=== PATIENT | female | born 1940 | race Caucasian/White ===

== ENCOUNTER 2016-10-03 09:49 | Inpatient (IN) | payer OTHER, MEDICARE ==
[~2016-10-03] VITALS: Ht 175.3 cm; Wt 73.0 kg
[~2016-10-03 09:49] MED LIST: CLOP75TA PO; FURO20TA PO; GABA300C5 PO; ISOS60TA PO; METO50TA11 PO; OMEP20TA PO; OXYGENTANK NAS.CANULA; RANE1000 PO
[2016-10-21] MEDS: D5-NS + KCL 20 MEQ INJ 1,000 ML IV SCH ×2 (01:00→18:30)
[2016-10-21] MEDS ORDERED: PROPOFOL 200 MG/20 ML AMP IV ONE (12:00)
[2016-10-21] MEDS ORDERED: ePHEDrine/NS 25 MG/5 ML SYR IV ONE (12:00)
[2016-10-21] MEDS ORDERED: LACTATED RINGER'S 1,000 ML BAG IV ONE (12:00)
[2016-10-21] MEDS ORDERED: ONDANSETRON HCL 4 MG/2 ML VIAL IV PUSH ONE (12:00)
[2016-10-21] MEDS ORDERED: SODIUM CHLORID 0.9% 500 ML IV PRN (13:15)
[2016-10-21] MEDS ORDERED: CHLORHEXIDINE GLUCONATE 2 % 1 PACK (2 CLOTHS) TOPICAL PRN (13:15)
[2016-10-21] MEDS ORDERED: METOPROLOL TARTRATE 25 MG TAB PO PRN (13:15)
[2016-10-21] MEDS ORDERED: LACTATED RINGER'S 1000 ML IV PRN (13:15)
[2016-10-21] MEDS ORDERED: INSULIN HUMAN REGULAR 1,000 UNITS/10 ML VIAL SQ PRN (13:15)
[2016-10-21] MEDS ORDERED: POVIDONE IODINE 5% (ANTISEPSIS KIT) 4 APPLICATIONS EACH NARE PRN (13:15)
[2016-10-21] MEDS ORDERED: ALVIMOPAN 12 MG CAPSULE - On Call PO SCH (13:15)
--- NOTE | 2016-10-21 13:20 | PD.HP.UP ---
H&P Update Note The Pre-Admit History and Physical Examination regarding the above named patient was reviewed (including, but not limited to, vital signs, heart, lungs, co-morbid conditions), and upon re-examination it is noted that: the patient's condition has not significantly changed since the last examination. Saqib Carcamo MD Oct 21, 2016 13:20
[2016-10-21] MEDS ORDERED: DEXT 5%-NACL 0.9% 1000 ML INJ 1,000 ML IV SCH (13:30)
[2016-10-21] MEDS ORDERED: METRONIDAZOLE 500 MG/100 ML ISONTONIC SOLN IV SCH (13:30)
[2016-10-21] MEDS ORDERED: ceFAZolin 1,000 MG/NS 100 ML IV SCH ×2 (13:30)
[2016-10-21 13:38] VITALS: BP 171/84; PULSE 82; RESP 18; TEMP 97.9; O2SAT 98
[2016-10-21] MEDS ORDERED: SODIUM CHLORIDE 0.9% FLUSH 10 ML FLUSH IV FLUSH PRN ×2 (14:00→18:00)
[2016-10-21] MEDS ORDERED: ACETAMINOPHEN 1000 MG/100 ML VIAL IV ONE (14:48)
[2016-10-21] MEDS ORDERED: SUGAMMADEX SODIUM 200 MG/2 ML VIAL IV PUSH ONE ×2 (14:48)
[2016-10-21] MEDS ORDERED: FAMOTIDINE 20 MG/2 ML VIAL ONE (14:48)
[2016-10-21] MEDS ORDERED: POTASSIUM CHLOR 40 MEQ PREMIX 100 ML IV PRN (18:00)
[2016-10-21] MEDS ORDERED: ACETAMINOPHEN 325 MG TAB PO PRN (18:00)
[2016-10-21] MEDS ORDERED: ENALAPRILAT 1.25 MG/ML VIAL IV PRN (18:00)
[2016-10-21] MEDS ORDERED: NALOXONE HCL 0.4 MG/ML AMP IV PRN (18:00)
[2016-10-21] MEDS ORDERED: POTASSIUM CHLOR 20 MEQ PREMIX 100 ML IV PRN (18:00)
[2016-10-21] MEDS ORDERED: Post-op Orders (for Pharmacy) MISC XX ONE (18:00)
[2016-10-21] MEDS ORDERED: ENALAPRILAT 2.5 MG/2 ML VIAL IV PRN (18:00)
[2016-10-21] MEDS ORDERED: ACETAMINOPHEN/HYDROcodone 325 MG/5 MG TAB PO PRN ×2 (18:00)
[2016-10-21] MEDS ORDERED: BENZOCAINE 6 MG/MENTHOL 10 MG LOZENGE BUCCAL PRN (18:00)
--- NOTE | 2016-10-21 18:01 | HHI.PR ---
Immediate Post Op Note Procedure Date: Oct 21, 2016 Pre Op Diagnosis: Hx colostomy Post Op Diagnosis: Same Surgeon: Saqib Carcamo Contact Center Professional(s): Rosalie Procedure: Exploratory lap + seg colectomy, low pelvic anastomosis Findings: adhesions, prev emil-en-y gastric resection small bowel over colon liver nl ut/ovaries absent no vaginal fistula Complications: none Specimen(s) removed: colon, rectum Estimated blood loss: 100cc Anesthesia: General Drains: SELENA IVF Patient to: PACU Patient Condition: Good Saqib Carcamo MD Oct 21, 2016 18:01
[2016-10-21] MEDS ORDERED: *MEPERIDINE 25 MG INJ VIAL PERIprocedural Use ONLY ONE (18:33)
[2016-10-21] MEDS ORDERED: MIDAZOLAM HCL 2 MG/2 ML VIAL ONE (18:38)
[2016-10-21] MEDS ORDERED: fentaNYL CITRATE 250 MCG/5 ML AMP ONE (18:38)
[2016-10-21] MEDS: MORPHINE SULFATE 30 MG/30 ML PCA IV SCH (18:58)
[2016-10-21] MEDS: RANOLAZINE 500 MG EXTENDED RELEASE TAB PO SCH (21:00)
[2016-10-21] MEDS: SODIUM CHLORIDE 0.9% FLUSH 10 ML FLUSH IV FLUSH SCH (21:00)
[2016-10-21] MEDS: METOCLOPRAMIDE HCL 10 MG/2 ML VIAL IVS SCH (21:00)
[2016-10-21] MEDS ORDERED: *morphine SULFATE 8 MG/ML PERIprocedure ONLY ONE (21:10)
[2016-10-21] MEDS: metroNIDAZOLE 500 MG INJ 100 ML IV SCH (21:40)
[2016-10-21 23:00] VITALS: BP 150/89; PULSE 60; PULSE 75; RESP 16; TEMP 98; O2SAT 100
[2016-10-22] VITALS (26 sets, daily range): BP systolic 140–166; BP diastolic 58–75; PULSE 60–86; RESP 16–18; TEMP 97.7–98.9; O2SAT 96–99
[2016-10-22] MEDS: metroNIDAZOLE 500 MG INJ 100 ML IV SCH ×2 (04:44→13:02)
[2016-10-22] MEDS: D5-NS + KCL 20 MEQ INJ 1,000 ML IV SCH ×3 (05:26→20:12)
[2016-10-22] MEDS: PCA - TOTAL MG MORPHINE DELIVERED PER SHIFT SCH ×3 (06:00→22:00)
[2016-10-22 06:35] LABS: AUTOMATED NEUTROPHIL # 6.3 TH/MM3 (1.8-7.7); BASOPHIL % 0.2 % (0.0-2.0); HEMATOCRIT 34.6 % (35.0-46.0); HEMO FLAGS DIFF FINAL; LYMPH % 10.6 % (9.0-44.0); LYMPHOCYTE # 0.8 TH/MM3 (1.0-4.8); MEAN CELL VOLUME 94.6 FL (80.0-100.0); MEAN CORPUSCULAR HEMOGLOBIN 31.1 PG (27.0-34.0); MEAN CORPUSCULAR HGB CONC 32.8 % (32.0-36.0); MONO % 5.2 % (0.0-8.0); PLATELET COUNT 104 TH/MM3 (150-450); RED BLOOD COUNT 3.66 MIL/MM3 (4.00-5.30); RED CELL DISTRIBUTION WIDTH 14.6 % (11.6-17.2); WHITE BLOOD COUNT 7.5 TH/MM3 (4.0-11.0)
[2016-10-22 07:17] LABS: BICARBONATE 25.6 MEQ/L (21.0-32.0); POTASSIUM 4.9 MEQ/L (3.5-5.1)
[2016-10-22] MEDS: PANTOPRAZOLE SODIUM 40 MG VIAL IVP SCH (08:15)
[2016-10-22] MEDS: METOPROLOL SUCCINATE 50 MG EXTENDED RELEASE TAB PO SCH (08:15)
[2016-10-22] MEDS: PANTOPRAZOLE SOD 40 MG DELAYED RELEASE TAB PO SCH (08:15)
[2016-10-22] MEDS: SODIUM CHLORIDE 0.9% FLUSH 10 ML FLUSH IV FLUSH SCH ×2 (08:16→20:12)
[2016-10-22] MEDS: METOCLOPRAMIDE HCL 10 MG/2 ML VIAL IVS SCH ×2 (08:16→20:11)
[2016-10-22] MEDS: RANOLAZINE 500 MG EXTENDED RELEASE TAB PO SCH ×2 (08:44→20:11)
[2016-10-22] MEDS: ONDANSETRON HCL 4 MG/2 ML VIAL IV PRN (08:44)
[2016-10-22] MEDS ORDERED: ALVIMOPAN 12 MG CAPSULE - Post-op dosing PO SCH (09:00)
[2016-10-22] MEDS: ALVIMOPAN 12 MG CAPSULE PO SCH (20:12)
[2016-10-22] MEDS: KETOROLAC TROMETHAMINE 30 MG/ML (IVP) VIAL IVP PRN (23:30)
[2016-10-23] VITALS (20 sets, daily range): BP systolic 124–142; BP diastolic 58–94; PULSE 67–83; RESP 16–18; TEMP 97.9–98.7; O2SAT 92–95
[2016-10-23] MEDS: MORPHINE SULFATE 30 MG/30 ML PCA IV SCH (03:10)
[2016-10-23 03:54] LABS: AUTOMATED NEUTROPHIL # 4.6 TH/MM3 (1.8-7.7); BASOPHIL % 0.2 % (0.0-2.0); EOSINOPHIL % 0.3 % (0.0-4.0); HEMATOCRIT 30.5 % (35.0-46.0); LYMPH % 14.4 % (9.0-44.0); LYMPHOCYTE # 0.8 TH/MM3 (1.0-4.8); MEAN CELL VOLUME 93.6 FL (80.0-100.0); MEAN CORPUSCULAR HEMOGLOBIN 32.1 PG (27.0-34.0); MEAN CORPUSCULAR HGB CONC 34.2 % (32.0-36.0); MONO % 5.4 % (0.0-8.0); NEUT % 79.7 % (16.0-70.0); PLATELET COUNT 96 TH/MM3 (150-450); RED BLOOD COUNT 3.26 MIL/MM3 (4.00-5.30); RED CELL DISTRIBUTION WIDTH 14.4 % (11.6-17.2); WHITE BLOOD COUNT 5.8 TH/MM3 (4.0-11.0)
[2016-10-23 04:11] LABS: BICARBONATE 25.2 MEQ/L (21.0-32.0); POTASSIUM 4.1 MEQ/L (3.5-5.1)
[2016-10-23 04:19] LABS: HEMO FLAGS AUTO DIFF
[2016-10-23] MEDS: PCA - TOTAL MG MORPHINE DELIVERED PER SHIFT SCH ×3 (05:49→22:00)
[2016-10-23] MEDS: D5-NS + KCL 20 MEQ INJ 1,000 ML IV SCH ×2 (05:50→16:25)
[2016-10-23 05:53] LABS: PLATELET ESTIMATE SMEAR LOW (NORMAL); PLATELET MORPHOLOGY NORMAL (NORMAL); SCAN/DIFF AUTO DIFF CONFIRMED
--- NOTE | 2016-10-23 07:47 | HHI.PR ---
Subjective Remarks C/R Surg POD #2 afebrile, VSS UO good +BM Objective - Vital Signs Date Time Temp Pulse Resp B/P Pulse Ox O2 Delivery O2 Flow Rate FiO2 10/23/16 06:00 68 10/23/16 06:00 18 10/23/16 03:00 95 Room Air 10/23/16 03:00 98.7 128/65 10/22/16 07:30 1.00 Result Diagram: 10/23/16 0315 10/23/165 Objective Remarks PE alert Abd - soft, wound dry, no tympany A/P Assessment and Plan Imp: adv diet OOB stent dc'Saqib Walsh MD Oct 23, 2016 07:47
[2016-10-23] MEDS: SODIUM CHLORIDE 0.9% FLUSH 10 ML FLUSH IV FLUSH SCH ×2 (08:35→20:23)
[2016-10-23] MEDS: FUROSEMIDE 20 MG/2 ML VIAL IV PUSH SCH ×2 (08:36→20:26)
[2016-10-23] MEDS: METOCLOPRAMIDE HCL 10 MG/2 ML VIAL IVS SCH ×2 (08:37→20:25)
[2016-10-23] MEDS: ALVIMOPAN 12 MG CAPSULE PO SCH ×2 (08:38→20:24)
[2016-10-23] MEDS: METOPROLOL SUCCINATE 50 MG EXTENDED RELEASE TAB PO SCH (08:38)
[2016-10-23] MEDS: PANTOPRAZOLE SOD 40 MG DELAYED RELEASE TAB PO SCH (08:38)
[2016-10-23] MEDS: RANOLAZINE 500 MG EXTENDED RELEASE TAB PO SCH ×2 (08:40→20:24)
[2016-10-23] MEDS: PANTOPRAZOLE SODIUM 40 MG VIAL IVP SCH (08:41)
[2016-10-23] MEDS: HEPARIN SODIUM - SQ 10,000 UNITS/ML VIAL SQ SCH ×2 (08:42→20:24)
--- NOTE | 2016-10-23 10:25 | MP ---
cc: LINDA PERES DATE OF SURGERY 10/21/2016 PREOPERATIVE DIAGNOSES Diverticulitis. Colovesical fistula. POSTOPERATIVE DIAGNOSES Diverticulitis. Colovesical fistula. PROCEDURE Cystoscopy, bilateral ureteral catheter placement. SURGEON MD Abundio ANESTHESIA General endotracheal tube. FLUIDS 200 cc crystalloids. ESTIMATED BLOOD LOSS No blood loss. COMPLICATIONS No complications. INDICATIONS FOR PROCEDURE Radha Ramos is a 76-year-old female with diverticulitis and repair was scheduled by Dr. Carcamo. Requests were made for bilateral ureteral catheter insertion. PROCEDURE The patient is brought to the operating room, identified by myself as Radha Ramos. She is placed in dorsal lithotomy position, prepped and draped in the usual sterile fashion, received preprocedure antibiotics and general endotracheal tube anesthesia was administered. A 22-Bolivian cystoscope was inserted into the bladder and sotelo cystoscopy revealed some squamous metaplasia at the trigone with a lot of debris within the bladder. I was unable to see the area of the colovesical fistula. The left ureteral orifice was identified and a 5-Bolivian open catheter was inserted into the left ureteral orifice without difficulty. This was repeated on the right side without difficulty. The Lange catheter was inserted and the ureteral catheters were attached to the Lange catheter. She tolerated the procedure well. Linda SANFORD/SSB /3:35 PM /10:19 AM
[2016-10-23] MEDS: KETOROLAC TROMETHAMINE 30 MG/ML (IVP) VIAL IVP PRN (15:00)
[2016-10-23] MEDS ORDERED: DO NOT ADM ANY ANTICOAGULANT DRUGS PRN (17:00)
[2016-10-24] VITALS: BP 141/62; PULSE 83; RESP 18; TEMP 97; O2SAT 97
[2016-10-24 04:00] VITALS: BP 146/70; PULSE 84; RESP 18; TEMP 98.5; O2SAT 94
[2016-10-24] MEDS: PCA - TOTAL MG MORPHINE DELIVERED PER SHIFT SCH ×3 (06:00→22:00)
[2016-10-24 08:00] VITALS: BP 131/65; PULSE 82; RESP 10; TEMP 97.1; O2SAT 96
[2016-10-24] MEDS: METOPROLOL SUCCINATE 50 MG EXTENDED RELEASE TAB PO SCH (08:40)
[2016-10-24] MEDS: ALVIMOPAN 12 MG CAPSULE PO SCH ×2 (08:40→20:51)
[2016-10-24] MEDS: PANTOPRAZOLE SOD 40 MG DELAYED RELEASE TAB PO SCH (08:40)
[2016-10-24] MEDS: RANOLAZINE 500 MG EXTENDED RELEASE TAB PO SCH ×2 (08:41→20:51)
[2016-10-24] MEDS: METOCLOPRAMIDE HCL 10 MG/2 ML VIAL IVS SCH ×2 (08:41→20:52)
[2016-10-24] MEDS: HEPARIN SODIUM - SQ 10,000 UNITS/ML VIAL SQ SCH ×2 (08:41→20:53)
[2016-10-24] MEDS: PANTOPRAZOLE SODIUM 40 MG VIAL IVP SCH (08:42)
[2016-10-24] MEDS: SODIUM CHLORIDE 0.9% FLUSH 10 ML FLUSH IV FLUSH SCH ×2 (08:42→20:53)
[2016-10-24] MEDS: FUROSEMIDE 20 MG/2 ML VIAL IV PUSH SCH ×2 (08:42→20:52)
[2016-10-24] MEDS: D5-NS + KCL 20 MEQ INJ 1,000 ML IV SCH (09:52)
--- NOTE | 2016-10-24 11:13 | MP ---
cc: VINAY WOOD M.D. DATE OF SURGERY 10/21/2016 PREOPERATIVE DIAGNOSIS 1. History of colostomy status post Shaun resection. 2. History of a gastric resection. PROCEDURE 1. Exploratory laparotomy with extensive lysis of adhesions, segmental colon resection and low pelvic anastomosis. 2. Segmental transverse colon resection and primary anastomosis. SURGEON Dr. Wood POSTOPERATIVE DIAGNOSIS 1. History of colostomy status post Shaun resection. 2. History of a gastric resection. SURGEON Dr. Wood ASSESSMENT Dr. Omar Wiggins PROCEDURE The patient was placed in the supine position. After adequate general anesthesia, her legs were placed in [place] stirrups and supported appropriately. The abdomen and perineum were then prepped with Betadine solution and draped in the usual sterile fashion. With Dr. Wiggins's assistance, the abdomen was opened through the previous midline incision. A fair number of adhesions were encountered requiring a fairly dense, fairly tedious dissection to open up the peritoneal space. Quite a few adhesions to the small bowel were also freed up mobilizing the bowel up out of the abdomen and freeing some loops from the pelvis. The end of the rectal stump was identified with some Prolene sutures. The upper abdomen was fairly densely adherent to the previous gastric resection and what appeared to be a Carri-en-Y reconstruction passing the bowel over the colon. Quite a long time was necessary to free up these adhesions and mobilized the colon off the left retroperitoneum. It appeared that the splenic flexure had been previously mobilized as well. After adequate mobilization, it appeared that the colostomy could be closed. The colostomy was therefore taken down from its intra-abdominal attachments by creating an elliptical incision around the stoma and dissecting it free from the subcutaneous tissue. The fascial attachments were released and the bowel mobilized back into the abdomen. Upon mobilizing the remainder of the transverse colon, the area was very densely adherent to the parietal peritoneum and upon mobilization, the serosa was denuded in several areas. After full mobilization, it was felt necessary to resect this small section prior to attempting to close the colostomy. Therefore, an avascular plane was created proximal and distal to the affected area and the bowel divided in both places with a ISIDORO stapling device. The small intervening mesenteric defect taken between Sima's obtaining hemostasis with Vicryl ties. Bowel continuity was then restored by firing the ISIDORO stapler across the antimesenteric ends of the bowel and closing the enterotomy with a TA-60 stapler. Small mesenteric defect closed with a Vicryl suture and a 3-0 Vicryl crotch suture was placed as well. Next, the rectal pouch was identified and the presacral space entered. It appeared that the superior hemorrhoidal vessels were still intact and these were taken between Sima's obtaining hemostasis with Vicryl ties. Both ureteral stents were carefully identified and preserved. Dissection then proceeded dissecting posteriorly along the presacral space, elevating the rectal pouch off the presacral fascia down to the pelvic floor for full rectal mobilization. The distal ends of the pouch appeared to be very narrow and not suitable for a proper anastomosis, therefore a point in the proximal rectum, the mesorectum was divided finally dividing the bowel between a pursestring suture device and a Avani clamp. The end of the bowel was also trimmed taking back several inches of the area involved with the colostomy, dividing the marginal artery and finally dividing the bowel at the appropriate point using a pursestring suture device. The end of the bowel was sized to accept a 29-mm EEA stapling anvil and this was secured with a pursestring suture. Dr. Wiggins inserted the EEA stapling device transanally and this was brought up to the ends of the rectal pouch and the pursestring suture tied. The stapler was then reassembled, the bowel aligned properly, the stapler closed and fired. Upon withdrawal, two complete doughnuts of tissue were seen. Gentle insufflation did confirm an airtight anastomosis. The abdomen was then irrigated copiously with normal saline. Adequate hemostasis was achieved at all sites. Reinaldo-Tapia drain placed down to the presacral space and brought up through a stab wound in the right lower quadrant and secured to the skin with a nylon suture. The proximal anastomosis was under no tension and appeared to be viable. The small bowel was run from the Carri-en-Y attachment down toward the ileocecal valve and felt to be pretty much unremarkable. The liver had no palpable abnormalities. In the pelvis, there did not appear to be any attachments between the colon and the vaginal apex or anterior structures. The bladder was palpably normal. No inflammatory changes were palpable in the distal rectal sigmoid. The colostomy site was closed in two layers using #1 PDS sutures to reapproximate the respective fascial layers. The midline incision was closed with a running #1 PDS suture to reapproximate the midline fascia. The subcu tissues were irrigated at both sites and the skin closed with a row of surgical cary at both sites. The wound area washed with normal saline and dried, sterile dressing of Telfa and gauze applied. The patient tolerated the procedure quite well and was brought to recovery room in stable condition. Sponge and needle counts were correct at the end of the procedure. MD SAMIR Pacheco/RAE /11:00 PM /10:58 AM
[2016-10-24 12:00] VITALS: BP 109/58; PULSE 70; RESP 16; TEMP 96.3; O2SAT 96
[2016-10-24 16:00] VITALS: BP 152/64; PULSE 75; RESP 16; TEMP 98.3; O2SAT 97
[2016-10-24 20:00] VITALS: BP 157/76; PULSE 79; RESP 18; TEMP 97.9; O2SAT 96
--- NOTE | 2016-10-24 21:58 | HHI.PR ---
Subjective Remarks C/R Surg POD #3 afebrile, VSS UO good Objective - Vital Signs Date Time Temp Pulse Resp B/P Pulse Ox O2 Delivery O2 Flow Rate FiO2 10/24/16 20:00 97.9 79 18 157/76 96 10/23/16 19:22 21 10/23/16 15:03 Room Air 10/22/16 07:30 1.00 Result Diagram: 10/23/1631410/23/16314 Objective Remarks PE alert Abd - soft, wound dry, no tympany, no flatus A/P Assessment and Plan Imp: adv diet OOB decr CEMETERY WARDEN Saqib Carcamo MD Oct 24, 2016 21:58
[2016-10-25] VITALS (9 sets, daily range): BP systolic 110–171; BP diastolic 59–81; PULSE 70–98; RESP 17–20; TEMP 97.8–100.1; O2SAT 94–98
[2016-10-25] MEDS: PCA - TOTAL MG MORPHINE DELIVERED PER SHIFT SCH ×3 (06:00→20:50)
[2016-10-25] MEDS: D5-NS + KCL 20 MEQ INJ 1,000 ML IV SCH ×2 (06:19→20:48)
--- NOTE | 2016-10-25 08:37 | HHI.PR ---
Subjective Remarks No N or V. Flatus.Small BM Objective Vital Signs Date Time Temp Pulse Resp B/P Pulse Ox O2 Delivery O2 Flow Rate FiO2 10/25/16 06:20 20 10/25/16 06:00 20 10/25/16 04:00 98.2 92 20 155/71 95 10/25/16 00:00 99.2 81 18 159/74 96 10/24/16 22:00 18 10/24/16 20:00 97.9 79 18 157/76 96 10/24/16 16:00 98.3 75 16 152/64 97 10/24/16 14:00 16 10/24/16 12:00 96.3 70 16 109/58 96 I/O 10/24/16 10/24/16 10/24/16 10/25/16 10/25/16 10/25/16 07:00 15:00 23:00 07:00 15:00 23:00 Intake Total 554 ml 908 ml 240 ml 240 ml Output Total 3120 ml 655 ml 1450 ml 550 ml Balance -2566 ml 253 ml -1210 ml -310 ml Intake Oral 240 ml 240 ml 240 ml IV Total 554 ml 668 ml Output Urine Total 3100 ml 625 ml 1450 ml 550 ml Drainage Total 20 ml 30 ml # Bowel Movements 0 0 0 Result Diagram: 10/23/1631410/23/16314 Objective Remarks VS-S Abd: flat,soft,wound clean,dry Assessment and Plan Assessment and Plan POD#4 Start diet, Ambulate, D/C NEUROLOGY PHYSICIAN ASSISTANT Thiago Wiggins MD Oct 25, 2016 08:37
[2016-10-25] MEDS: PANTOPRAZOLE SODIUM 40 MG VIAL IVP SCH (09:00)
[2016-10-25] MEDS: RANOLAZINE 500 MG EXTENDED RELEASE TAB PO SCH ×2 (09:22→20:50)
[2016-10-25] MEDS: PANTOPRAZOLE SOD 40 MG DELAYED RELEASE TAB PO SCH (09:22)
[2016-10-25] MEDS: ALVIMOPAN 12 MG CAPSULE PO SCH ×2 (09:22→20:50)
[2016-10-25] MEDS: METOPROLOL SUCCINATE 50 MG EXTENDED RELEASE TAB PO SCH (09:22)
[2016-10-25] MEDS: HEPARIN SODIUM - SQ 10,000 UNITS/ML VIAL SQ SCH ×2 (09:23→20:49)
[2016-10-25] MEDS: FUROSEMIDE 20 MG/2 ML VIAL IV PUSH SCH ×2 (09:23→20:50)
[2016-10-25] MEDS: METOCLOPRAMIDE HCL 10 MG/2 ML VIAL IVS SCH ×2 (09:23→20:49)
[2016-10-25] MEDS: SODIUM CHLORIDE 0.9% FLUSH 10 ML FLUSH IV FLUSH SCH ×2 (09:26→20:50)
[2016-10-25] MEDS ORDERED: NALOXONE HCL 0.4 MG/ML AMP IV PRN (10:45)
[2016-10-25] MEDS ORDERED: MORPHINE SULFATE 30 MG/30 ML PCA IV SCH (10:45)
[2016-10-26] VITALS (8 sets, daily range): BP systolic 68–174; BP diastolic 59–73; PULSE 71–81; RESP 17–20; TEMP 97.5–99.6; O2SAT 96–98
[2016-10-26] MEDS: PCA - TOTAL MG MORPHINE DELIVERED PER SHIFT SCH ×3 (06:00→21:54)
[2016-10-26] MEDS: ALVIMOPAN 12 MG CAPSULE PO SCH ×2 (07:50→21:53)
[2016-10-26] MEDS: RANOLAZINE 500 MG EXTENDED RELEASE TAB PO SCH ×2 (07:50→21:53)
[2016-10-26] MEDS: METOPROLOL SUCCINATE 50 MG EXTENDED RELEASE TAB PO SCH (07:50)
[2016-10-26] MEDS: PANTOPRAZOLE SOD 40 MG DELAYED RELEASE TAB PO SCH (07:51)
[2016-10-26] MEDS: METOCLOPRAMIDE HCL 10 MG/2 ML VIAL IVS SCH ×2 (07:51→21:54)
[2016-10-26] MEDS: FUROSEMIDE 20 MG/2 ML VIAL IV PUSH SCH ×2 (07:51→21:54)
[2016-10-26] MEDS: PANTOPRAZOLE SODIUM 40 MG VIAL IVP SCH (07:52)
[2016-10-26] MEDS: SODIUM CHLORIDE 0.9% FLUSH 10 ML FLUSH IV FLUSH SCH ×2 (07:52→21:00)
[2016-10-26] MEDS: HEPARIN SODIUM - SQ 10,000 UNITS/ML VIAL SQ SCH ×2 (07:52→21:54)
--- NOTE | 2016-10-26 11:12 | HHI.PR ---
Subjective Remarks No N or V. Flatus.Stooling. Says she has not ambulated yet and is too weak to walk. She's planning on D/C tomorrow but I cautioned that if she can't ambulate we cannot D/C Objective Vital Signs Date Time Temp Pulse Resp B/P Pulse Ox O2 Delivery O2 Flow Rate FiO2 10/26/16 08:10 19 10/26/16 08:10 96 Room Air 10/26/16 08:00 98.6 74 19 68/ 96 10/26/16 06:00 18 10/26/16 04:00 98.2 71 17 129/61 96 10/26/16 00:00 99.6 76 17 148/68 96 10/25/16 20:50 20 10/25/16 20:00 100.1 70 17 133/63 96 10/25/16 16:00 98.7 72 20 147/80 95 10/25/16 16:00 97.8 73 19 144/67 96 10/25/16 14:00 18 10/25/16 12:00 99.1 98 20 110/59 95 I/O 10/25/16 10/25/16 10/25/16 10/26/16 10/26/16 10/26/16 07:00 15:00 23:00 07:00 15:00 23:00 Intake Total 240 ml 2006 ml 640 ml 240 ml 120 ml Output Total 550 ml 575 ml 300 ml Balance -310 ml 1431 ml 340 ml 240 ml 120 ml Intake Oral 240 ml 570 ml 240 ml 240 ml 120 ml IV Total 1436 ml 400 ml Output Urine Total 550 ml 575 ml Stool Total 300 ml # Voids 2 2 # Bowel Movements 2 2 Result Diagram: 10/23/165 10/23/16314 Objective Remarks VS-S Abd: flat,soft,wound clean,dry,no redness Assessment and Plan Assessment and Plan POD#5 Tolerating diet. Pt says she cannot take PO pain meds and Dr Carcamo has agreed to FRENCH PASTRY COOK till D/C Thiago Wiggins MD Oct 26, 2016 11:12
[2016-10-26] MEDS: D5-NS + KCL 20 MEQ INJ 1,000 ML IV SCH (11:50)
[2016-10-27] VITALS: BP 171/90; PULSE 77; RESP 17; TEMP 98.6; O2SAT 96
[2016-10-27 04:00] VITALS: BP 148/73; PULSE 72; RESP 17; TEMP 97.4; O2SAT 96
[2016-10-27] MEDS: PCA - TOTAL MG MORPHINE DELIVERED PER SHIFT SCH ×2 (05:38→14:00)
[2016-10-27 08:00] VITALS: BP 162/72; PULSE 73; RESP 16; TEMP 98.6; O2SAT 95
[2016-10-27] MEDS ORDERED: ISOSORBIDE MONONITRATE 60 MG TAB PO SCH (09:00)
[2016-10-27] MEDS: PANTOPRAZOLE SODIUM 40 MG VIAL IVP SCH (09:00)
[2016-10-27] MEDS: METOPROLOL SUCCINATE 50 MG EXTENDED RELEASE TAB PO SCH (09:38)
[2016-10-27] MEDS: ALVIMOPAN 12 MG CAPSULE PO SCH (09:38)
[2016-10-27] MEDS: PANTOPRAZOLE SOD 40 MG DELAYED RELEASE TAB PO SCH (09:38)
[2016-10-27] MEDS: RANOLAZINE 500 MG EXTENDED RELEASE TAB PO SCH (09:38)
[2016-10-27] MEDS: HEPARIN SODIUM - SQ 10,000 UNITS/ML VIAL SQ SCH (09:39)
[2016-10-27] MEDS: METOCLOPRAMIDE HCL 10 MG/2 ML VIAL IVS SCH (09:39)
[2016-10-27] MEDS: FUROSEMIDE 20 MG/2 ML VIAL IV PUSH SCH (09:39)
[2016-10-27] MEDS: SODIUM CHLORIDE 0.9% FLUSH 10 ML FLUSH IV FLUSH SCH (09:45)
[2016-10-27] MEDS: ONDANSETRON HCL 4 MG/2 ML VIAL IV PRN (09:45)
[2016-10-27] MEDS: D5-NS + KCL 20 MEQ INJ 1,000 ML IV SCH (09:50)
[2016-10-27 12:00] VITALS: BP 143/66; PULSE 68; RESP 17; TEMP 96.8; O2SAT 95
[2016-10-27 16:00] VITALS: BP 140/68; PULSE 70; RESP 17; TEMP 97.7; O2SAT 96
--- NOTE | 2016-10-27 17:26 | HHI.PR ---
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
[2016-10-27] MEDS ORDERED: GABAPENTIN 300 MG CAP PO SCH (21:00)
--- NOTE | 2016-12-14 21:36 | MD ---
cc: DO HAYDEE PAZ ANDREW H. M.D. ADMISSION DATE: 10/21/2016 DISCHARGE DATE: 10/27/2016 ADMISSION DIAGNOSIS History of diverticulitis status post Shaun resection. PROCEDURE 1. On 10/21/2016 cystoscopy and placement of ureteral stents. 2. Exploratory laparotomy with extensive lysis of adhesions, segmental colon resection and low pelvic anastomosis. 3. Segmental transverse colon resection and primary anastomosis. DISCHARGE DIAGNOSES 1. History of diverticular disease and Shaun resection. 2. History of previous gastric resection. HISTORY OF PRESENT ILLNESS Mrs. Ramos is a 75-year-old female who had undergone emergency surgery quite a while ago for diverticulitis and ended up with a colostomy and a Shaun pouch. She has been fairly stable with the colostomy. However, she expressed wishes to have the colostomy closed. There has been a question of a colovaginal or rectovaginal fistula but this has never been delineated. Due to cardiac problems and other medical issues, the colostomy has not been closed previously. Recent cardiac evaluation showed that she was at an acceptable risk to undergo the proposed surgery and after a long discussion with the patient and her family she was really very anxious to get rid of the colostomy, so the surgery was set up and she was admitted at this time for the proposed colostomy closure. Please see the admitting history and physical for complete past medical and surgical history. PHYSICAL EXAMINATION GENERAL: Pertinent physical, a very tall, thin female in no acute distress. ABDOMEN: Very soft, not distended. Stoma was pink and non prolapsing. 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 The previous incision had healed well. RECTAL: Anal inspection revealed benign canal. Digital exam revealed good tone with no masses or tenderness or blood on the finger. HOSPITAL COURSE After admission, the patient was taken to the operating room on October 21, 2016 at which point she had cystoscopy and placement of ureteral stents. The undersigned then did a exploratory laparotomy with extensive lysis of adhesions, segmental colon resection and low pelvic anastomosis. A second segmental transverse colon resection was necessary due to dense adhesions from her previous gastric resection. She did tolerate the surgery fairly well. Postoperatively she was stabilized in the intensive care unit. Her GI tract function returned rather promptly and her diet was advanced accordingly. She was quite weak and required physical therapy for some muscle strengthening. Her IV fluids were tapered. Her diet was advanced. She was doing well enough to be considered for discharge home on October 27, 2016. DISCHARGE INSTRUCTIONS The patient was discharged eating a regular diet. She was encouraged to ambulate daily, avoiding any heavy lifting or straining. All preop medications were to be resumed. Physical therapy was ordered and hopefully will help with her muscle strengthening. The patient was instructed to call the office for more urgent care if any problems arose prior to her scheduled visit which should occur in one to two weeks. MD SAMIR Pacheco/KK /11:22 PM /9:21 PM
== END 2016-10-27 18:36 | disposition home or self-care (01) | DRG 331 ==
LOC: HSDI 10-21 12:32 → HCIN 10-21 22:16 → N07B 10-23 16:44
PROVIDERS: ADMIT Colon & Rectal Surgery; ATTEND Colon & Rectal Surgery
PROC: 0DNE0ZZ Release Large Intestine, Open Approach (ICD-10-PCS; 2016-10-21)
PROC: 0DQV0ZZ Repair Mesentery, Open Approach (ICD-10-PCS; 2016-10-21)
PROC: 0TJB8ZZ Inspection of Bladder, Via Natural or Artificial Opening Endoscopic (ICD-10-PCS; 2016-10-21)
PROC: 0T9780Z Drainage of Left Ureter with Drainage Device, Via Natural or Artificial Opening Endoscopic (ICD-10-PCS; 2016-10-21)
PROC: 0T9680Z Drainage of Right Ureter with Drainage Device, Via Natural or Artificial Opening Endoscopic (ICD-10-PCS; 2016-10-21)
PROC: 0DBL0ZZ Excision of Transverse Colon, Open Approach (ICD-10-PCS; principal; 2016-10-21 14:48)
PROC: 0DBP0ZZ Excision of Rectum, Open Approach (ICD-10-PCS; 2016-10-21 14:48)
DX: Z43.3 Encounter for attention to colostomy (principal); I10 Essential (primary) hypertension; K66.0 Peritoneal adhesions (postprocedural) (postinfection); I25.10 Atherosclerotic heart disease of native coronary artery without angina pectoris; I25.2 Old myocardial infarction; K21.9 Gastro-esophageal reflux disease without esophagitis; Z85.028 Personal history of other malignant neoplasm of stomach; Z87.891 Personal history of nicotine dependence; Z95.1 Presence of aortocoronary bypass graft; Z95.5 Presence of coronary angioplasty implant and graft
CPT/HCPCS: 80048; 82948; 85025; 86077; 86850; 86870; 86900; 86901; 86902; 86920; 86922; 88304; 88307; 94150; C1769; C9113; J0131; J0690; J1644; J1885; J1940; J2175; J2250; J2270; J2405; J2765; J3010; J3480; J7120

== ENCOUNTER → 2016-10-16 | Outpatient (CLI) | payer OTHER ==
[~2016-10-16] MED LIST changes: +REGL10TA5 PO; +ZETI10TA5 PO
[2016-10-16 11:42] LABS: AUTOMATED NEUTROPHIL # 3.5 TH/MM3 (1.8-7.7); BASOPHIL % 0.3 % (0.0-2.0); EOSINOPHIL # 0.1 TH/MM3 (0-0.4); EOSINOPHIL % 1.1 % (0.0-4.0); HEMATOCRIT 36.5 % (35.0-46.0); HEMO FLAGS DIFF FINAL; LYMPH % 28.6 % (9.0-44.0); LYMPHOCYTE # 1.6 TH/MM3 (1.0-4.8); MEAN CELL VOLUME 92.2 FL (80.0-100.0); MEAN CORPUSCULAR HEMOGLOBIN 31.4 PG (27.0-34.0); MEAN CORPUSCULAR HGB CONC 34.1 % (32.0-36.0); MONO % 9.9 % (0.0-8.0); NEUT % 60.1 % (16.0-70.0); PLATELET COUNT 183 TH/MM3 (150-450); RED BLOOD COUNT 3.96 MIL/MM3 (4.00-5.30); RED CELL DISTRIBUTION WIDTH 14.4 % (11.6-17.2); WHITE BLOOD COUNT 5.8 TH/MM3 (4.0-11.0)
[2016-10-16 11:44] LABS: BLOOD, URINE NEG (NEG); COMMENT (UR) CULTURE INDICATED; CULTURE IF INDICATED CULTURE INDICATED; GLUCOSE,URINE NEG (NEG); HYALINE CAST, URINE 7 /lpf (RARE); KETONE, URINE NEG (NEG); MUCUS URINE FEW /lpf (OCC); NITRITE,URINE NEG (NEG); PH, URINE 5.5 (5.0-8.5); SQUAMOUS EPITHELIAL CELL URINE <1 /hpf (0-5); URINE COLOR YELLOW (YELLW/STRAW)
[2016-10-16 11:50] LABS: APTT (PATIENT) 27.5 SEC (24.3-30.1); PROTHROMBIN TIME - PATIENT 10.6 SEC (9.8-11.6)
--- NOTE | 2016-10-16 12:17 | RADRPT ---
EXAM DATE/TIME: 10/16/2016 11:44 [facility] COMPARISON: Prior study 08/06/15, use for comparison. INDICATIONS : Preop. MEDICAL HISTORY : Congestive heart failure. Hypertension. Myocardial infarction. Cardiovascular disease SURGICAL HISTORY : CABG. Coronary artery stent. Colostomy. spinal stimulator, infusaport ENCOUNTER: Initial ACUITY: 1 day PAIN SCORE: 0/10 LOCATION: Bilateral chest FINDINGS: Two view chest demonstrates clips and wires chest CABG. There is a right-sided Xgauuv-G-Hweb cathete r. Heart and mediastinum are unremarkable. There is a new 2 cm soft tissue nodule in the left lung apex. Non-contrast chest CT is recommended. Bones are unremarkable. Epidural stimulator is in plac e. CONCLUSION: Questionable new 2 cm nodule overlying the left lung apex. It was not identified on a chest x-ray Fe bru2015 or CT of the chest same day. Non-contrast CT is recommended. Randy Saavedra MD on October 16, 2016 at 12:00 Board Certified Radiologist. This report was verified electronically.
[2016-10-16 12:22] LABS: ALT (GPT) 32 U/L (10-53); ANION GAP 8 MEQ/L (5-15); AST (GOT) 23 U/L (15-37); BICARBONATE 27.5 MEQ/L (21.0-32.0); BLOOD UREA NITROGEN 24 MG/DL (7-18); CHLORIDE 104 MEQ/L (98-107); GLOMERULAR FILTRATION RATE 59 ML/MIN (>89); GLUCOSE,FASTING 110 MG/DL (74-99); POTASSIUM 4.3 MEQ/L (3.5-5.1); SODIUM (NA) 139 MEQ/L (136-145)
[2016-10-16 12:25] LABS: ALKALINE PHOSPHATASE 96 U/L (45-117); TOTAL BILIRUBIN ADULT 0.5 MG/DL (0.2-1.0)
== END ==
LOC: CPRE 10:07
PROVIDERS: ATTEND Colon & Rectal Surgery
DX: Z01.812 Encounter for preprocedural laboratory examination (principal); K57.32 Diverticulitis of large intestine without perforation or abscess without bleeding; Z79.01 Long term (current) use of anticoagulants; R82.90 Unspecified abnormal findings in urine
CPT/HCPCS: 36415; 71020; 80053; 81001; 85025; 85610; 85730; 87086

== ENCOUNTER 2017-09-08 15:09 | Inpatient (IN) | payer OTHER, MEDICARE ==
[~2017-09-08 15:09] MED LIST changes: +METO1TAB9 PO; -METO50TA11 PO; -OMEP20TA PO; +OMEP20TA93 PO; -REGL10TA5 PO; -ZETI10TA5 PO
[2017-09-08 15:27] VITALS: BP 162/104; PULSE 84; RESP 28; TEMP 98.4; O2SAT 98
--- NOTE | 2017-09-08 16:17 | RADRPT ---
EXAM DATE/TIME: 09/08/2017 15:49 [facility] COMPARISON: CHEST PA & LAT, October 16, 2016, 11:44. INDICATIONS : Shortness of breath. Chest pains. MEDICAL HISTORY : Congestive heart failure. Hypertension. Myocardial infarction. Cardiovascular disease SURGICAL HISTORY : CABG. Coronary artery stent. Colostomy. spinal stimulator, infusaport ENCOUNTER: Initial ACUITY: 1 day PAIN SCORE: 6/10 LOCATION: Bilateral chest FINDINGS: PA and lateral views of the chest demonstrate the lungs to be symmetrically aerated without evidence of mass, infiltrate or effusion. There is hyperaeration bilaterally. The cardiomediastinal contours are unremarkable and stable. There is evidence of previous cardiothoracic surgery.. Osseous structur es are intact and stable. Right central line remains in place. No pneumothorax. No significant change s compared to the prior study. CONCLUSION: No acute disease. No significant change has occurred. Zia Landers MD on September 08, 2017 at 16:15 Board Certified Radiologist. This report was verified electronically.
[2017-09-08 17:51] VITALS: BP 198/90; PULSE 75; RESP 17; O2SAT 100
--- NOTE | 2017-09-08 18:27 | PD ---
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 She states that she feels in general weak, has had several episodes of near syncope. She denies any black stools, vomiting, fevers, or other symptoms. Modifying Factors: None Associated Signs & Symptoms: General weakness, chest discomfort, dyspnea on exertion, near syncope Risk Factors: Cardiac history PFSH Past Medical History Hx Anticoagulant Therapy: Yes (plavix) Arthritis: Yes Blood Disorders: No Heart Rhythm Problems: No Cancer: Yes (colon) Cardiac Catheterization: Yes Cardiovascular Problems: Yes High Cholesterol: Yes Chemotherapy: Yes Chest Pain: Yes Congestive Heart Failure: Yes Cerebrovascular Accident: No Diabetes: No Diminished Hearing: No Endocrine: No Fibromyalgia: Yes Gastrointestinal Disorders: No GERD: Yes Glaucoma: No Genitourinary: No Headaches: Yes Hepatitis: No Hiatal Hernia: No Hypertension: Yes Immune Disorder: No Implanted Vascular Access Dvce: Yes (right sc port) Musculoskeletal: Yes (HX OF FIBROMYALGIA AND ARTHRITIS) Neurologic: Yes (FAINTING DURING CP) Psychiatric: No Reproductive: No Respiratory: Yes (oxygen as needed) Immunizations Current: Yes Migraines: No Radiation Therapy: Yes Thyroid Disease: No Ulcer: Yes (GASTRIC) Menopausal: Yes Past Surgical History Abdominal Surgery: Yes (EXP LAP -GASTRIC CANCER (NOT SURE OF SX), colostomy) Appendectomy: Yes Body Medical Devices: multi cardiac stents, port to r side of chest, spinal cord stimulator Cardiac Surgery: Yes (CABG X 4, STENTS) Coronary Stent: Yes Eye Surgery: Yes (cataract bilateral) Gynecologic Surgery: Yes (total hysterectomy) Hysterectomy: Yes Pacemaker: No Other Surgery: Yes (CABG X 3 / PARTIAL BOWEL REMOVAL) Social History Alcohol Use: No Tobacco Use: No Substance Use: No Allergies-Medications (Allergen,Severity, Reaction): Coded Allergies: amlodipine (Unverified Allergy, Severe, muscle weakness, 02/17/17) atorvastatin (Unverified Allergy, Severe, muscle weakness, 02/17/17) pravastatin (Unverified Allergy, Severe, muscle weakness, 02/17/17) simvastatin (Unverified Allergy, Severe, muscle weakness, 02/17/17) enoxaparin (Unverified Adverse Reaction, Mild, too much bleeding after the cardiac procedure, 02/17/17) has a power port and states that it is flushed with heparin all the time heparin (porcine) (Unverified Adverse Reaction, Mild, too much bleeding after the cardiac procedure, 02/17/17) has a power port and states that it is flushed with heparin all the time Uncoded Allergies: STATINS (Adverse Reaction, Severe, 05/21/12) Reported Meds & Prescriptions Reported Meds & Active Scripts Active Reported Oxygen tank (Oxygen) 1 Ea Tank 2 Liter BILLIE.[employer] Power CONTINUOUS Oxygen Concentrator Portable Gaseous 2 L/min via Nasal Cannula Continuous For 99 months Metoprolol Succinate ER 24 HR (Metoprolol Succinate) 50 Mg Tab 50 Mg PO DAILY Ranexa ER 12 HR (Ranolazine) 1,000 Mg Tab 1,000 Mg PO BID Omeprazole 20 Mg Tab 20 Mg PO DAILY Isosorbide Mononitrate ER (Isosorbide Mononitrate) 60 Mg Tab 60 Mg PO BID Furosemide 20 Mg Tab 20 Mg PO DAILY PRN Review of Systems Except as stated in HPI: all other systems reviewed are Neg Physical Exam Narrative GENERAL: Well-developed elderly white female patient currently in moderate distress. Awake and oriented 3. SKIN: Focused skin assessment warm/dry. HEAD: Atraumatic. Normocephalic. EYES: Pupils equal and round. No scleral icterus. No injection or drainage. ENT: No nasal bleeding or discharge. Mucous membranes pink and moist. NECK: Trachea midline. No JVD. Supple. CARDIOVASCULAR: Regular rate and rhythm. No murmur appreciated. RESPIRATORY: No accessory muscle use. Clear to auscultation. Breath sounds equal bilaterally. GASTROINTESTINAL: Abdomen soft, non-tender, nondistended. Hepatic and splenic margins not palpable. MUSCULOSKELETAL: No obvious deformities. No clubbing. No cyanosis. No edema. NEUROLOGICAL: Awake and alert. No obvious cranial nerve deficits. Motor grossly within normal limits. Normal speech. PSYCHIATRIC: Appropriate mood and affect; insight and judgment normal. Data Data Last Documented VS Vital Signs Date Time Temp Pulse Resp B/P (MAP) Pulse Ox O2 Delivery O2 Flow Rate FiO2 3/6/18 17:51 75 17 198/90 (126) 100 Room Air 09/08/17 15:27 98.4 Orders Orders Electrocardiogram (09/08/17 15:29) B-Type Natriuretic Peptide (09/08/17 15:29) Ckmb (Isoenzyme) Profile (09/08/17 15:29) Complete Blood Count With Diff (09/08/17 15:29) Comprehensive Metabolic Panel (09/08/17 15:29) Magnesium (Mg) (09/08/17 15:29) Prothrombin Time / Inr (Pt) (09/08/17 15:29) Act Partial Throm Time (Ptt) (09/08/17 15:) Troponin I (09/08/17 15:) Lipase (09/08/17:) Chest, Pa & Lat (09/08/17 15:) Labs Laboratory Tests Test 09/08/17 18:10 White Blood Count 5.7 TH/MM3 Red Blood Count 3.98 MIL/MM3 Hemoglobin 12.0 GM/DL Hematocrit 35.3 % Mean Corpuscular Volume 88.5 FL Mean Corpuscular Hemoglobin 30.1 PG Mean Corpuscular Hemoglobin Concent 34.0 % Red Cell Distribution Width 16.7 % Platelet Count 172 TH/MM3 Mean Platelet Volume 9.0 FL Neutrophils (%) (Auto) 52.9 % Lymphocytes (%) (Auto) 36.4 % Monocytes (%) (Auto) 9.7 % Eosinophils (%) (Auto) 0.7 % Basophils (%) (Auto) 0.3 % Neutrophils # (Auto) 3.0 TH/MM3 Lymphocytes # (Auto) 2.1 TH/MM3 Monocytes # (Auto) 0.5 TH/MM3 Eosinophils # (Auto) 0.0 TH/MM3 Basophils # (Auto) 0.0 TH/MM3 CBC Comment DIFF FINAL Differential Comment Prothrombin Time 10.2 SEC Prothromb Time International Ratio 1.0 RATIO Activated Partial Thromboplast Time 26.8 SEC Blood Urea Nitrogen 23 MG/DL Creatinine 1.05 MG/DL Random Glucose 100 MG/DL Total Protein 7.2 GM/DL Albumin 3.8 GM/DL Calcium Level 8.6 MG/DL Magnesium Level 2.2 MG/DL Alkaline Phosphatase 114 U/L Aspartate Amino Transf (AST/SGOT) 23 U/L Alanine Aminotransferase (ALT/SGPT) 26 U/L Total Bilirubin 0.4 MG/DL Sodium Level 139 MEQ/L Potassium Level 4.2 MEQ/L Chloride Level 105 MEQ/L Carbon Dioxide Level 24.7 MEQ/L Anion Gap 9 MEQ/L Estimat Glomerular Filtration Rate 51 ML/MIN Total Creatine Kinase 79 U/L Troponin I LESS THAN 0.02 NG/ML B-Type Natriuretic Peptide 181 PG/ML Lipase 96 U/L MDM Medical Decision Making Medical Screen Exam Complete: Yes Emergency Medical Condition: Yes Medical Record Reviewed: Yes Interpretation(s) EKG shows NSR, no ST elevation or depression, and no arrhythmias. No significant T-wave inversions. Laboratory Tests Test 09/08/17 18:10 Last 24 hours Impressions Chest X-Ray 09/08/17 1529 Signed Impressions: Service Date/Time: Friday, September 08, 2017 15:49 - CONCLUSION: No acute disease. No significant change has occurred. Zia Landers MD Differential Diagnosis ACS versus dysrhythmias versus dehydration versus metabolic issues Narrative Course EKG did not show significant dysrhythmias. Lab work was fairly unremarkable. Chest x-ray was unremarkable. Considering her history of cardiac issues, my plan would be to admit her for further treatment. Case was discussed with Dr. Vallecillo for admission. Diagnosis Primary Impression: Chest pain Additional Impression: Syncope Admitting Information Admitting Physician Requests: Admit Gerardo Mike MD Sep 08, 2017 18:27
[2017-09-08 18:41] LABS: PROTHROMBIN TIME - PATIENT 10.2 SEC (9.8-11.6)
[2017-09-08 18:47] LABS: ALBUMIN 3.8 GM/DL (3.4-5.0); AST (GOT) 23 U/L (15-37); BICARBONATE 24.7 MEQ/L (21.0-32.0); BLOOD UREA NITROGEN 23 MG/DL (7-18); CALCIUM 8.6 MG/DL (8.5-10.1); CHLORIDE 105 MEQ/L (98-107); CREATININE 1.05 MG/DL (0.50-1.00); GLOMERULAR FILTRATION RATE 51 ML/MIN (>89); GLUCOSE,RANDOM 100 MG/DL (74-106); MAGNESIUM 2.2 MG/DL (1.5-2.5); SODIUM (NA) 139 MEQ/L (136-145)
[2017-09-08 18:48] LABS: ALT (GPT) 26 U/L (10-53); BASOPHIL % 0.3 % (0.0-2.0); EOSINOPHIL % 0.7 % (0.0-4.0); HEMATOCRIT 35.3 % (35.0-46.0); LYMPH % 36.4 % (9.0-44.0); LYMPHOCYTE # 2.1 TH/MM3 (1.0-4.8); MEAN CELL VOLUME 88.5 FL (80.0-100.0); MEAN CORPUSCULAR HEMOGLOBIN 30.1 PG (27.0-34.0); MONO % 9.7 % (0.0-8.0); MONOCYTE # 0.5 TH/MM3 (0-0.9); NEUT % 52.9 % (16.0-70.0); PLATELET COUNT 172 TH/MM3 (150-450); RED BLOOD COUNT 3.98 MIL/MM3 (4.00-5.30); RED CELL DISTRIBUTION WIDTH 16.7 % (11.6-17.2); WHITE BLOOD COUNT 5.7 TH/MM3 (4.0-11.0)
[2017-09-08 18:52] LABS: ALKALINE PHOSPHATASE 114 U/L (45-117); TOTAL BILIRUBIN ADULT 0.4 MG/DL (0.2-1.0); TOTAL PROTEIN 7.2 GM/DL (6.4-8.2); TROPONIN I LESS THAN 0.02 NG/ML (0.02-0.05)
[2017-09-08] MEDS ORDERED: NALOXONE HCL 0.4 MG/ML AMP IV PUSH PRN (20:00)
[2017-09-08] MEDS ORDERED: PROCHLORPERAZINE 25 MG SUPP RECTAL PRN (20:00)
[2017-09-08] MEDS ORDERED: SODIUM CHLORIDE 0.9% FLUSH 10 ML FLUSH IV FLUSH PRN (20:00)
[2017-09-08] MEDS ORDERED: FUROSEMIDE 20 MG TAB PO PRN (20:15)
[2017-09-08 20:44] VITALS: BP 186/93; PULSE 77; RESP 20; TEMP 98.2; O2SAT 99
[2017-09-08] MEDS: ISOSORBIDE MONONITRATE 60 MG CR TAB (IMDUR) PO SCH (21:09)
--- NOTE | 2017-09-08 21:19 | HHI.HP ---
HPI Service [facility] Primary Care Physician Bindu Velasco Do, MD Admission Diagnosis Chest pain/syncope Diagnoses: Travel History International Travel<30 Days: No Contact w/Intl Traveler <30 Da: No Traveled to Known Affected Are: No History of Present Illness 76-year-old female with past medical history significant for hypertension, CAD with history of [place] and stents, hyperlipidemia, CHF (echo from 02/26/14 showed an EF of 40-45%), GERD and anxiety presents to the emergency department for evaluation of chest pain and shortness of breath. The patient reports that approximately 10 days ago she started having "really bad chest pain" with associated weakness and fatigue. She states that she spent the past 5 days in bed which helped with her symptoms however she still had intermittent chest pain during this time. She states that yesterday her chest pain was worse and had associated nausea and for near syncopal episodes with dizziness. She has baseline dyspnea on exertion which she states is worse and has been using her prn home O2. She denies fever/chills. Denies emesis or diarrhea. No lateralizing signs/symptoms. Review of Systems Except as stated in HPI: all other systems reviewed are Neg Past Family Social History Past Medical History Hypertension CAD with history of [place] and stents Hyperlipidemia GERD Anxiety CHF History of stomach cancer Past Surgical History Colostomy with reversal Cardiac stents 12 CABG 418 years ago L345 fusion Partial gastrectomy Lysis of adhesions Appendectomy Hysterectomy Reported Medications Reported Meds & Active Scripts Active Reported Oxygen tank (Oxygen) 1 Ea Tank 2 Liter BILLIE.CANULA CONTINUOUS Oxygen Concentrator Portable Gaseous 2 L/min via Nasal Cannula Continuous For 99 months Metoprolol Succinate ER 24 HR (Metoprolol Succinate) 50 Mg Tab 50 Mg PO DAILY Ranexa ER 12 HR (Ranolazine) 1,000 Mg Tab 1,000 Mg PO BID Omeprazole 20 Mg Tab 20 Mg PO DAILY Isosorbide Mononitrate ER (Isosorbide Mononitrate) 60 Mg Tab 60 Mg PO BID Furosemide 20 Mg Tab 20 Mg PO DAILY PRN Allergies: Coded Allergies: amlodipine (Unverified Allergy, Severe, muscle weakness, 02/17/17) atorvastatin (Unverified Allergy, Severe, muscle weakness, 02/17/17) pravastatin (Unverified Allergy, Severe, muscle weakness, 02/17/17) simvastatin (Unverified Allergy, Severe, muscle weakness, 02/17/17) enoxaparin (Unverified Adverse Reaction, Mild, too much bleeding after the cardiac procedure, 02/17/17) has a power port and states that it is flushed with heparin all the time heparin (porcine) (Unverified Adverse Reaction, Mild, too much bleeding after the cardiac procedure, 02/17/17) has a power port and states that it is flushed with heparin all the time Uncoded Allergies: STATINS (Adverse Reaction, Severe, 05/21/12) Family History Father with CAD Social History Denies alcohol, tobacco and illicit drugs Physical Exam Vital Signs Vital Signs Date Time Temp Pulse Resp B/P (MAP) Pulse Ox O2 Delivery O2 Flow Rate FiO2 09/08/17 20:44 98.2 77 20 186/93 (124) 99 09/08/17 20:41 09/08/17 17:51 75 17 198/90 (126) 100 Room Air 09/08/17 15:27 98.4 84 28 162/104 (123) 98 Physical Exam GENERAL: female sitting up in bed SKIN: No rashes, ecchymoses or lesions. Cool and dry. HEAD: Atraumatic. Normocephalic. No temporal or scalp tenderness. EYES: Pupils equal round and reactive. Extraocular motions intact. No scleral icterus. No injection or drainage. ENT: Nose without bleeding, purulent drainage or septal hematoma. Throat without erythema, tonsillar hypertrophy or exudate. Uvula midline. Airway patent. NECK: Trachea midline. No JVD or lymphadenopathy. Supple, nontender, no meningeal signs. CARDIOVASCULAR: Regular rate and rhythm without murmurs, gallops, or rubs. RESPIRATORY: Clear to auscultation. Breath sounds equal bilaterally. No wheezes , rales, or rhonchi. Use of accessory muscles. GASTROINTESTINAL: Abdomen soft, non-tender, nondistended. No hepato-splenomegaly , or palpable masses. No guarding. MUSCULOSKELETAL: Extremities without clubbing, cyanosis, or edema. No joint tenderness, effusion, or edema noted. No calf tenderness. NEUROLOGICAL: Awake and alert. Cranial nerves II through XII intact. Motor and sensory grossly within normal limits. Normal speech. Laboratory Laboratory Tests Test 09/08/17 18:10 White Blood Count 5.7 Red Blood Count 3.98 Hemoglobin 12.0 Hematocrit 35.3 Mean Corpuscular Volume 88.5 Mean Corpuscular Hemoglobin 30.1 Mean Corpuscular Hemoglobin Concent 34.0 Red Cell Distribution Width 16.7 Platelet Count 172 Mean Platelet Volume 9.0 Neutrophils (%) (Auto) 52.9 Lymphocytes (%) (Auto) 36.4 Monocytes (%) (Auto) 9.7 Eosinophils (%) (Auto) 0.7 Basophils (%) (Auto) 0.3 Neutrophils # (Auto) 3.0 Lymphocytes # (Auto) 2.1 Monocytes # (Auto) 0.5 Eosinophils # (Auto) 0.0 Basophils # (Auto) 0.0 CBC Comment DIFF FINAL Differential Comment Prothrombin Time 10.2 Prothromb Time International Ratio 1.0 Activated Partial Thromboplast Time 26.8 Blood Urea Nitrogen 23 Creatinine 1.05 Random Glucose 100 Total Protein 7.2 Albumin 3.8 Calcium Level 8.6 Magnesium Level 2.2 Alkaline Phosphatase 114 Aspartate Amino Transf (AST/SGOT) 23 Alanine Aminotransferase (ALT/SGPT) 26 Total Bilirubin 0.4 Sodium Level 139 Potassium Level 4.2 Chloride Level 105 Carbon Dioxide Level 24.7 Anion Gap 9 Estimat Glomerular Filtration Rate 51 Total Creatine Kinase 79 Troponin I LESS THAN 0.02 B-Type Natriuretic Peptide 181 Lipase 96 Result Diagram: 09/08/17180909/08/171809 Caprini VTE Risk Assessment Caprini VTE Risk Assessment: Mod/High Risk (score >= 2) Caprini Risk Assessment Model Point Value = 1 Point Value = 2 Point Value = 3 Point Value = 5 Age 41-60 Minor surgery BMI > 25 kg/m2 Swollen legs Varicose veins or History of unexplained or recurrent spontaneous Oral contraceptives or hormone replacement Sepsis (< 1 month) Serious lung disease, including pneumonia (< 1 month) Abnormal pulmonary function Acute myocardial infarction Congestive heart failure (< 1 month) History of inflammatory bowel disease Medical patient at bed rest Age 61-74 Arthroscopic surgery Major open surgery (> 45 min) Laparoscopic surgery (> 45 min) Malignancy Confined to bed (> 72 hours) Immobilizing plaster cast Central venous access Age >= 75 History of VTE Family history of VTE Factor V Leiden Prothrombin [id number] Lupus anticoagulant Anticardiolipin antibodies Elevated serum homocysteine Heparin-induced thrombocytopenia Other congenital or acquired thrombophilia Stroke (< 1 month) Elective arthroplasty Hip, pelvis, or leg fracture Acute spinal cord injury (< 1 month) Prophylaxis Regimen Total Risk Factor Score Risk Level Prophylaxis Regimen 0-1 Low Early ambulation 2 Moderate Order ONE of the following: *Sequential Compression Device (SCD) *Heparin 5000 units SQ BID 3-4 Higher Order ONE of the following medications: *Heparin 5000 units SQ TID *Enoxaparin/Lovenox 40 mg SQ daily (WT < 150 kg, CrCl > 30 mL/min) *Enoxaparin/Lovenox 30 mg SQ daily (WT < 150 kg, CrCl > 10-29 mL/min) *Enoxaparin/Lovenox 30 mg SQ BID (WT < 150 kg, CrCl > 30 mL/min) AND/OR *Sequential Compression Device (SCD) 5 or more Highest Order ONE of the following medications: *Heparin 5000 units SQ TID (Preferred with Epidurals) *Enoxaparin/Lovenox 40 mg SQ daily (WT < 150 kg, CrCl > 30 mL/min) *Enoxaparin/Lovenox 30 mg SQ daily (WT < 150 kg, CrCl > 10-29 mL/min) *Enoxaparin/Lovenox 30 mg SQ BID (WT < 150 kg, CrCl > 30 mL/min) AND *Sequential Compression Device (SCD) Assessment and Plan Assessment and Plan Assessment/plan: 1. 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 Valadez, appreciate recommendations 2. Presyncope Unclear etiology Echo as above Carotid ultrasound pending 3. Hypertension/CAD/hyperlipidemia/GERD Continue home medications FEN NPO Electrolytes: monitor and replete prn Heparin Ciarra Vallecillo MD Sep 08, 2017 21:19
[2017-09-08] MEDS ORDERED: LORazepam 0.5 MG TAB PO ONE (21:45)
--- NOTE | 2017-09-08 22:42 | RADRPT ---
EXAM DATE/TIME: 09/08/2017 22:00 [facility] COMPARISON: No previous studies available for comparison. INDICATIONS : Syncope. MEDICAL HISTORY : Myocardial infarction. Congestive heart failure. Hypercholesterolemia. Anticoagulant therapy, plavix. Chest pain. Hypertension. Dyspnea. Ulcer. Gastroesophageal reflux. Fibromyalgia. Arthritis. Colon ca ncer. Chemotherapy. Nausea. SURGICAL HISTORY : CABG. Coronary artery stent. Appendectomy. Bilateral cataract surgery. Cardiac catheterization. Hyste rectomy. Colostomy. ENCOUNTER: Initial ACUITY: > 1 year PAIN SCORE: 2/10 LOCATION: Bilateral neck PEAK SYSTOLIC VELOCITIES (cm/sec): ICA/CCA RATIO: Right: 1.6 Left: 1.4 ICA: Right: 110.1 Left: 66.6 CCA: Right: 69.1 Left: 47.1 ECA: Right: 81.4 Left: 69.9 VERTEBRAL: Right: 63.6 antegrade Left: 56.7 antegrade Elevated flow velocities and ICA/CCA ratios have been found to correlate with increased degrees of vessel stenosis, calculated as percentage of diameter relative to a normal segment of distal ICA/CCA FINDINGS: RIGHT CAROTID: Mild plaque formation in the carotid bulb. No significant stenosis is visualized. The waveforms are within normal limits. LEFT CAROTID: Plaque formation in the carotid bulb. No significant stenosis is visualized. The waveforms are with in normal limits. VERTEBRAL ARTERIES: Antegrade flow is seen in both vertebral arteries. CONCLUSION: Mild plaque formation in the carotid bulb bilaterally with hemodynamic parameters characteristic of l ess than 50% stenosis. Abundio Mccoy MD on September 08, 2017 at 22:39 Board Certified Radiologist. This report was verified electronically.
[2017-09-08] MEDS: SODIUM CHLORIDE 0.9% FLUSH 10 ML FLUSH IV FLUSH SCH (22:49)
[2017-09-08] MEDS: RANOLAZINE 500 MG EXTENDED RELEASE TAB PO SCH (22:50)
[2017-09-08] MEDS: NITROGLYCERIN 0.4 MG SL 25 TABS/BTL SL PRN ×2 (22:50→23:01)
[2017-09-09] VITALS (12 sets, daily range): BP systolic 134–155; BP diastolic 63–83; PULSE 59–75; RESP 16–20; TEMP 96.3–98.2; O2SAT 96–100
[2017-09-09 03:29] LABS: TROPONIN I LESS THAN 0.02 NG/ML (0.02-0.05)
[2017-09-09 07:33] LABS: AUTOMATED NEUTROPHIL # 1.9 TH/MM3 (1.8-7.7); BASOPHIL % 0.7 % (0.0-2.0); EOSINOPHIL # 0.1 TH/MM3 (0-0.4); HEMATOCRIT 33.7 % (35.0-46.0); HEMOGLOBIN 11.1 GM/DL (11.6-15.3); LYMPHOCYTE # 1.3 TH/MM3 (1.0-4.8); MEAN CORPUSCULAR HEMOGLOBIN 29.4 PG (27.0-34.0); MEAN PLATELET VOLUME 8.8 FL (7.0-11.0); MONOCYTE # 0.5 TH/MM3 (0-0.9); NEUT % 50.3 % (16.0-70.0); PLATELET COUNT 145 TH/MM3 (150-450); RED BLOOD COUNT 3.79 MIL/MM3 (4.00-5.30); RED CELL DISTRIBUTION WIDTH 17.2 % (11.6-17.2); WHITE BLOOD COUNT 3.9 TH/MM3 (4.0-11.0)
[2017-09-09 07:53] LABS: BICARBONATE 28.7 MEQ/L (21.0-32.0); BLOOD UREA NITROGEN 20 MG/DL (7-18); CALCIUM 8.1 MG/DL (8.5-10.1); CHLORIDE 104 MEQ/L (98-107); CREATININE 0.86 MG/DL (0.50-1.00); GLOMERULAR FILTRATION RATE 64 ML/MIN (>89); GLUCOSE,RANDOM 90 MG/DL (74-106); SODIUM (NA) 141 MEQ/L (136-145)
[2017-09-09 07:58] LABS: TROPONIN I LESS THAN 0.02 NG/ML (0.02-0.05)
[2017-09-09] MEDS: PANTOPRAZOLE SOD 20 MG DELAYED RELEASE TAB PO SCH (09:54)
[2017-09-09] MEDS: RANOLAZINE 500 MG EXTENDED RELEASE TAB PO SCH ×2 (09:54→20:08)
[2017-09-09] MEDS: METOPROLOL SUCCINATE 50 MG EXTENDED RELEASE TAB PO SCH (09:54)
[2017-09-09] MEDS: HEPARIN SODIUM - SQ 10,000 UNITS/ML VIAL SQ SCH ×2 (09:54→20:08)
[2017-09-09] MEDS: ISOSORBIDE MONONITRATE 60 MG CR TAB (IMDUR) PO SCH ×2 (09:54→20:07)
[2017-09-09] MEDS: SODIUM CHLORIDE 0.9% FLUSH 10 ML FLUSH IV FLUSH SCH ×2 (09:54→20:07)
[2017-09-09] MEDS: SODIUM CHLOR 0.9% 1000 ML INJ 1,000 ML IV SCH ×2 (10:18→20:11)
[2017-09-09] MEDS ORDERED: diphenhydrAMINE HCL 50 MG CAP PO SCH (10:30)
[2017-09-09] MEDS ORDERED: ASPIRIN 325 MG TAB PO SCH (10:30)
[2017-09-09] MEDS ORDERED: DIAZEPAM 5 MG TAB PO SCH (10:30)
--- NOTE | 2017-09-09 10:44 | EKG ---
Date Performed: 09/09/2017 Time Performed: 05:23:48 PTAGE: 76 years EKG: Sinus rhythm MARKED LEFT AXIS DEVIATION LATE TRANSITION ABNORMAL ECG PREVIOUS TRACING : 09/09/2017 00.13 DOCTOR: Randy La Interpretating Date/Time 09/09/2017 10:43:36
--- NOTE | 2017-09-09 10:52 | EKG ---
Date Performed: 09/09/2017 Time Performed: 00:13:20 PTAGE: 76 years EKG: Sinus rhythm MARKED LEFT AXIS DEVIATION POSSIBLE ANTERIOR MYOCARDIAL INFARCTION INCOMPLETE LEFT BUNDLE BRANCH BLO CK WITH NONSPECIFIC ST/T ABNORMALITY ABNORMAL ECG PREVIOUS TRACING : 09/08/2017 16.22 DOCTOR: Randy La Interpretating Date/Time 09/09/2017 10:51:10
--- NOTE | 2017-09-09 11:31 | MB ---
cc: Manoj Chery MD DATE OF CONSULT: REASON FOR CONSULTATION: Evaluation of chest pain. HISTORY OF PRESENT ILLNESS: Radha Ramos is a 76-year-old female with a longstanding history of cardiac disease. She is statin intolerant. She had bypass surgery 16 years ago; these were all vein grafts and have all occluded. She has had multiple cath procedures. She has had stenting of the diagonal branch by Dr. Paul in 2011. She has had stenting of the mid-circumflex artery which closed and then had to be reopened. Her last cardiac catheterization was on July 02, 2016, by Dr. Todd. Ejection fraction was about 40%, the LAD had 40% mid disease and 20% in-stent diagonal disease. The circumflex artery was diffusely diseased with a patent stent in the AV groove. There was what sounds like occlusion of the first marginal, report describing the first obtuse marginal branch, the second obtuse marginal branch was diseased but too small to intervene on. The right coronary artery was totally occluded. She has been managed medically. The patient complains of increasing chest pain for the last 10 days with sweating, substernal and left-sided chest pressure, gets it with minimal activity including symptoms prolonged at rest. Her troponins are negative but because of worsening chest pain she came to the hospital to be admitted. MEDICATION LIST: In the process of being assembled. She is on - 1. Imdur 90 mg. 2. Metoprolol 50 mg. 3. Ranexa. 4. Aspirin. 5. Her other noncardiac medications are being figured out. 6. Looks like she is also on lisinopril 10 mg daily. PAST MEDICAL HISTORY: 1. Hypertension. 2. Hyperlipidemia. 3. Statin intolerance. 4. Previous iron deficiency anemia with surgery on her bowel for ischemic bowel with subsequent resolution she says of any further bleeding. 5. She has had a 20-pound weight loss. She complains that when she eats food, it goes straight through her. 6. Recurrent genital herpes. 7. Previous uterine cancer. PAST SURGICAL HISTORY: 1. Hysterectomy. 2. Gastrectomy. 3. Appendectomy. 4. Multiple bowel surgeries as well. SOCIAL HISTORY: Quit smoking in 1985. She is . PHYSICAL EXAMINATION: GENERAL: A thin, very talkative white female who does not appear to be in acute distress. VITAL SIGNS: Blood pressure has been normal to high and tele shows sinus rhythm. HEENT: Exam unremarkable. NECK: Bilateral carotid bruits. Doppler suggests less than 50%. CHEST: Clear to auscultation CARDIAC EXAM: S1, S2. Regular rate and rhythm. A 1/6 systolic ejection murmur. ABDOMEN: Multiple scars. Soft. EXTREMITIES: Intact femoral and pedal pulses. EKG: Sinus rhythm with likely a left bundle. LABORATORY DATA: Troponins are negative. She is anemic with a of 33.7. Creatinine is 0.86. Chest x-ray unremarkable. IMPRESSION: Unstable angina. Troponins are negative. Symptoms have been worse for the past 10 days. She is noted to have high-grade disease. Nuclear stress test probably will not be helpful because of her occluded right coronary artery. PLAN: Perform diagnostic cardiac catheterization tomorrow morning at 7:30. Informed consent has been obtained. We will consider possible intervention if anatomy is appropriate. MD AMINATA Charles/BUSTER/rr , 10:23 AM , 10:48 AM
[2017-09-09] MEDS: ASPIRIN EC 81 MG TABEC PO SCH (12:34)
--- NOTE | 2017-09-09 14:15 | EKG ---
Date Performed: 09/08/2017 Time Performed: 16:22:49 PTAGE: 76 years EKG: Sinus rhythm MARKED LEFT AXIS DEVIATION POSSIBLE ANTERIOR MYOCARDIAL INFARCTION ABNORMAL ECG PREVIOUS TRACING : 07/02/2016 11.44 DOCTOR: Randy La Interpretating Date/Time 09/09/2017 14:14:49
--- NOTE | 2017-09-09 14:18 | HHI.PR ---
Subjective Remarks Follow-up chest pain and shortness of breath. Improving symptoms today but she came in because of worsening symptoms with near syncope yesterday. Feels tired. Discussed with RN and cardiology Objective Vitals Vital Signs Date Time Temp Pulse Resp B/P (MAP) Pulse Ox O2 Delivery O2 Flow Rate FiO2 09/09/17 12:07 97.6 71 16 149/74 (99) 98 09/09/17 07:54 97.6 75 20 155/78 (103) 99 09/09/17 05:06 99 21 09/09/17 02:59 97.7 72 16 142/67 (92) 100 09/09/17 02:45 67 09/09/17 00:02 97.9 71 16 138/66 (90) 100 09/08/17 20:44 98.2 77 20 186/93 (124) 99 09/08/17 20:41 09/08/17 17:51 75 17 198/90 (126) 100 Room Air 09/08/17 15:27 98.4 84 28 162/104 (123) 98 Result Diagram: 09/09/17 0632 09/09/17 0632 Imaging Last Impressions Chest X-Ray 09/08/17 1529 Signed Impressions: Service Date/Time: Friday, September 08, 2017 15:49 - CONCLUSION: No acute disease. No significant change has occurred. Zia Landers MD Carotid Artery Ultrasound 09/08/17 0000 Signed Impressions: Service Date/Time: Friday, September 08, 2017 22:00 - CONCLUSION: Mild plaque formation in the carotid bulb bilaterally with hemodynamic parameters characteristic of less than 50%% stenosis. Abundio Mccoy MD Objective Remarks GENERAL: female sitting up in bed SKIN: No rashes, ecchymoses or lesions. Cool and dry. CARDIOVASCULAR: Regular rate and rhythm without murmurs, gallops, or rubs. RESPIRATORY: Clear to auscultation. Breath sounds equal bilaterally. No wheezes , rales, or rhonchi. GASTROINTESTINAL: Abdomen soft, non-tender, nondistended. No guarding. MUSCULOSKELETAL: Extremities without clubbing, cyanosis, or edema. No joint tenderness, effusion, or edema noted. No calf tenderness. NEUROLOGICAL: Awake and alert. Cranial nerves II through XII intact. Motor and sensory grossly within normal limits. Normal speech. A/P Problem List: (1) Chest pain ICD Code: R07.9 - Chest pain Status: Acute Assessment and Plan 1. Chest pain and shortness of breath with history of CAD, heart failure and chronic respiratory failure on home oxygen. Patient ruled out for [place]. EF 35%. Discussed with cardiology for cardiac catheterization in the morning. Start lisinopril, continue aspirin, Lopressor and nitrate. She is intolerant to statin 2. Presyncope she is neurologically intact. Echocardiogram noted and carotid ultrasound with no significant stenosis continue to monitor 3. Hypertension/hyperlipidemia/GERD. Stable continue home medications DVT prophylaxis with subcu heparin Emigdio Marcelino MD Sep 09, 2017 14:18
--- NOTE | 2017-09-09 14:34 | ECHRPT ---
Indication: HEART FAILURE CONCLUSIONS The left ventricular systolic function is gppglpqb-oh-zmpdegf reduced with an estimated ejection fra ction in the range of 35-40%. Normal left ventricular size. Wall thickness is normal. There is global left ventricular dysfunction. Mild thickening of the mitral valve leaflets. Trace mitral valve regurgitation. Aortic valve sclerosis is present. There is trace tricuspid valve regurgitation. Normal estimated pulmonary pressures. The pulmonary valve is not well visualized. BP: 155 / 78 HR: 75 Rhythm: Sinus MEASUREMENTS (Male / Female) Normal Values Technical Quality:Good 2D ECHO LV Diastolic Diameter PLAX 4.3 cm 4.2 - 5.9 / 3.9 - 5.3 cm LV Systolic Diameter PLAX 2.5 cm IVS Diastolic Thickness 1.1 cm 0.6 - 1.0 / 0.6 - 0.9 cm LVPW Diastolic Thickness 1.1 cm 0.6 - 1.0 / 0.6 - 0.9 cm LV Relative Wall Thickness 0.5 RV Internal Dim ED PLAX 2.1 cm LVOT Diameter 2.0 cm LA Systolic Diameter LX 2.9 cm 3.0 - 4.0 / 2.7 - 3.8 cm LV Ejection Fraction MOD 4C 36.8 % LV Cardiac Index MOD 4C 1112.8 cm/minm LV Ejection Fraction 4C AL 38.5 % LV Cardiac Index 4C AL 1211.7 cm/minm M-MODE Aortic Root Diameter MM 2.9 cm LA Systolic Diameter MM 3.4 cm LA Ao Ratio MM 1.2 AV Cusp Separation MM 1.4 cm DOPPLER AV Peak Velocity 130.0 cm/s AV Peak Gradient 6.8 mmHg LVOT Peak Velocity 80.9 cm/s LVOT Peak Gradient 2.6 mmHg AV Area Cont Eq pk 2.0 cm MV Area PHT 3.3 cm Mitral E Point Velocity 51.3 cm/s Mitral A Point Velocity 80.0 cm/s Mitral E to A Ratio 0.6 LV E' Lateral Velocity 4.5 cm/s Mitral E to LV E' Lateral Ratio 11.5 LV E' Septal Velocity 3.7 cm/s Mitral E to LV E' Septal Ratio 13.9 PV Peak Velocity 117.0 cm/s PV Peak Gradient 5.5 mmHg FINDINGS LEFT VENTRICLE The left ventricular systolic function is jpyziief-my-nxffikm reduced with an estimated ejection fra ction in the range of 35-40%. Normal left ventricular size. Wall thickness is normal. There is global left ventricular dysfunction. RIGHT VENTRICLE Normal right ventricular size and systolic function. LEFT ATRIUM The left atrial size is normal. RIGHT ATRIUM The right atrial size is normal. ATRIAL SEPTUM Normal atrial septal thickness without atrial level shunting by limited color doppler interrogation. AORTA The aortic root and proximal ascending aorta are normal in size on limited imaging. MITRAL VALVE Mild thickening of the mitral valve leaflets. Trace mitral valve regurgitation. AORTIC VALVE Trileaflet aortic valve. Aortic valve sclerosis is present. TRICUSPID VALVE Structurally normal tricuspid valve. There is trace tricuspid valve regurgitation. Normal estimated pulmonary pressures. PULMONARY VALVE The pulmonary valve is not well visualized. VESSELS The inferior vena cava is normal in size. PERICARDIUM No pericardial effusion. Manoj Chery MD (Electronically Signed) Final Date:09 September 2017 14:33
[2017-09-10] VITALS (8 sets, daily range): BP systolic 116–147; BP diastolic 58–86; PULSE 50–64; RESP 16–18; TEMP 96.7–98.3; O2SAT 91–99
[2017-09-10] MEDS ORDERED: LORazepam 0.5 MG TAB PO ONE
[2017-09-10 05:47] LABS: AUTOMATED NEUTROPHIL # 1.5 TH/MM3 (1.8-7.7); BASOPHIL % 0.5 % (0.0-2.0); EOSINOPHIL # 0.1 TH/MM3 (0-0.4); EOSINOPHIL % 2.9 % (0.0-4.0); HEMATOCRIT 32.6 % (35.0-46.0); HEMOGLOBIN 10.8 GM/DL (11.6-15.3); LYMPH % 42.7 % (9.0-44.0); LYMPHOCYTE # 1.6 TH/MM3 (1.0-4.8); MEAN CELL VOLUME 87.7 FL (80.0-100.0); MEAN CORPUSCULAR HEMOGLOBIN 29.2 PG (27.0-34.0); MEAN CORPUSCULAR HGB CONC 33.2 % (32.0-36.0); MEAN PLATELET VOLUME 8.9 FL (7.0-11.0); MONO % 11.7 % (0.0-8.0); MONOCYTE # 0.4 TH/MM3 (0-0.9); NEUT % 42.2 % (16.0-70.0); PLATELET COUNT 156 TH/MM3 (150-450); RED BLOOD COUNT 3.72 MIL/MM3 (4.00-5.30); RED CELL DISTRIBUTION WIDTH 16.6 % (11.6-17.2); WHITE BLOOD COUNT 3.6 TH/MM3 (4.0-11.0)
[2017-09-10 06:11] LABS: BICARBONATE 28.8 MEQ/L (21.0-32.0); CREATININE 1.1 MG/DL (0.50-1.00); MAGNESIUM 2.1 MG/DL (1.5-2.5)
[2017-09-10] MEDS ORDERED: HEPARIN-NS/PF FLUSH BAG 2,000 ML IV FLUSH ONE (07:10)
--- NOTE | 2017-09-10 07:10 | HHI.PR ---
Subjective Remarks Follow-up chest pain and shortness of breath. Intermittent sharp chest pain refused sublingual nitroglycerin and morphine sulfate. Currently without chest pain going for cardiac catheterization. Discussed with RN, patient was anxious receive Ativan and slept well overnight. Objective Vitals Vital Signs Date Time Temp Pulse Resp B/P (MAP) Pulse Ox O2 Delivery O2 Flow Rate FiO2 09/10/17 05:07 98.3 61 16 116/58 (77) 99 09/10/17 00:45 62 09/09/17 23:42 98.2 70 16 142/66 (91) 96 09/09/17 20:04 98.1 74 20 136/83 (100) 98 09/09/17 17:38 96.3 64 20 134/63 (86) 97 09/09/17 16:08 59 09/09/17 12:35 66 09/09/17 12:07 97.6 71 16 149/74 (99) 98 09/09/17 07:54 97.6 75 20 155/78 (103) 99 09/09/17 07:48 59 I/O 09/09/17 09/09/17 09/09/17 09/10/17 09/10/17 09/10/17 07:00 15:00 23:00 07:00 15:00 23:00 Intake Total 240 ml Balance 240 ml Intake Oral 240 ml Result Diagram: 09/10/17 0530 09/10/17 0530 Imaging Last Impressions Chest X-Ray 09/08/17 1529 Signed Impressions: Service Date/Time: Friday, September 08, 2017 15:49 - CONCLUSION: No acute disease. No significant change has occurred. Zia Landers MD Carotid Artery Ultrasound 09/08/17 0000 Signed Impressions: Service Date/Time: Friday, September 08, 2017 22:00 - CONCLUSION: Mild plaque formation in the carotid bulb bilaterally with hemodynamic parameters characteristic of less than 50%% stenosis. Abundio Mccoy MD Objective Remarks GENERAL: female sitting up in bed SKIN: No rashes, ecchymoses or lesions. Cool and dry. CARDIOVASCULAR: Regular rate and rhythm without gallops, or rubs. RESPIRATORY: Clear to auscultation. Breath sounds equal bilaterally. No wheezes , rales, or rhonchi. GASTROINTESTINAL: Abdomen soft, non-tender, nondistended. No guarding. MUSCULOSKELETAL: Extremities without clubbing, cyanosis, or edema. No joint tenderness, effusion, or edema noted. No calf tenderness. NEUROLOGICAL: Awake and alert. Cranial nerves II through XII intact. Motor and sensory grossly within normal limits. Normal speech. A/P Problem List: (1) Chest pain ICD Code: R07.9 - Chest pain Status: Acute Assessment and Plan 1. Chest pain and shortness of breath with history of CAD, heart failure and chronic respiratory failure on home oxygen. Patient ruled out for [place]. EF 35%. Discussed with cardiology for cardiac catheterization today continue aspirin, Lopressor, lisinopril and nitrate. She is intolerant to statin. CHF education , I and O and monitor weight 2. Near syncope, she is neurologically intact. Echocardiogram noted and carotid ultrasound with no significant stenosis continue to monitor on telemetry 3. Hypertension/hyperlipidemia/GERD. Stable continue home medications 4. JULIO C on CKD stage 2. Nonoliguric. Avoid nephrotoxins and repeat BMP in the morning. DVT prophylaxis with subcu heparin Discharge Planning Discharge per cardiology Emigdio Marcelino MD Sep 10, 2017 07:10
[2017-09-10] MEDS ORDERED: MIDAZOLAM HCL 2 MG/2 ML VIAL ONE ×2 (07:11→08:03)
--- NOTE | 2017-09-10 07:11 | HHI.FF ---
Face to Face Verification Diagnosis: (1) Chest pain Physical Therapy Order: Evaluate and Treat, Improve ambulation, Strength and gait training Home Health Nursing Order: Medical education Signs/symptoms of disease process CHF education Oxygen administration education Medication education-adverse effect Nursing assessment with vital signs I have seen patient Radha Ramos on 09/10/17. My clinical findings support the need for the requested home health care services because: Patient has SOB I certify that my clinical findings support that this patient is homebound because: Need for psychosocial assistance Poor cardiac reserve Emigdio Marcelino MD Sep 10, 2017 07:11
[2017-09-10] MEDS ORDERED: STERILE WATER FOR INJECTION 10 ML VIAL ONE (07:22)
[2017-09-10] MEDS ORDERED: BIVALIRUDIN 250 MG VIAL ONE (07:22)
[2017-09-10] MEDS ORDERED: HEPARIN SODIUM - IV 10,000 UNITS/10 ML VIAL ONE (07:28)
[2017-09-10] MEDS ORDERED: NITROGLYCERIN INJ 5 ML ONE (08:18)
--- NOTE | 2017-09-10 08:44 | CATHPROC ---
[facility] HIS Report Study Information Study Number Admission Scheduled Start Study Start [id number] Sep 08 2017 7:13PM 09/09/2017 Sep 10 2017 7:06AM [place] Service Cardiac Catheterization Admit Source Facility Department Emergency department [facility] - Architectural Drafting Instructor Physician and Clinical Staff Initial Manoj Iqbal Water Regulator And Valve Repairer Wendie Lomas RN Other cathlab, cathlab Recorder Travon Shoemaker RCIS(BS) Scrub Kym Eason,RT(R) (BS) Procedures Performed Procedure Location (Site) Vessel Name Angiogram LV LV Ventricle Coronary Angiograms LCA Left Coronary Coronary Angiograms RCA Right Coronary L Heart Cath Wire insertion Fem Art (right) Femoral Art Equipment Time Pill Maker Description Size Mfg Part Number Used/Scraped TRANSDUCER, TRABEL [id number] 07:16 GONZALEZ RING * Used W/STOCKCOCK *[id number] *[id number] *[id number] *[id number] PIGTAIL ANG. 145 INFINITI 534-652S CATHETER *[id number] 670-056-00 *[id number] [id number] *[id number] 07:16 [employer]O IND[employer] PACK, CCL CUSTOM * Used *[id number] 07:16 FAGUO PACER PEN, SKIN DUAL W/ RULER * Used *[id number] 08:04 [employer] 30 PANKAJ INDEFLATOR Used *[id number] 07:16 [employer] SHEATH, FR6.5 PRELUDE 11CM FR 6.5 038ACT Used *[id number] 07:16 [employer] WIRE, 3MMJ .035 180CM 180CM Used *[id number] 07:16 NAMIC MANIFOLD, 4 PORT * Used *[id number] 07:42 NAMIC TUBING, HIGH PRESSURE 48" 48" Used *[id number] 07:16 [employer]COMED OMNIPAQUE, 350 MG, 100ML 100ML [id number] Used [id number] 07:16 MEJÍA MEDICAL BLANKET,WARM AIR CCL * Used *[id number] 08:04 [employer] PRIME WIRE, VERRATA 185CM 185CM 00000 *[id number] Used History: Current Medications Medication Dosage/Unit Route Frequency Last Date/Time Taken Imdur ASA Beta Yessenia LISINOPRIL History: Allergies Allergy Reaction heparin (porcine) too much bleeding after the cardiac procedure pravastatin muscle weakness simvastatin muscle weakness amlodipine muscle weakness enoxaparin too much bleeding after the cardiac procedure atorvastatin muscle weakness STATINS History: Risk Factors Family History of Hypertension Dyslipidemia Previous [place] Previous Heart Failure Premature CAD Yes Yes No Yes Yes Prior Valve Prior PCI Prior PCIDate Prior CABG Prior CABGDate Surgery No Yes 07/02/2016 Yes 07/06/2001 Cerebrovascular Peripheral Artery Chronic Lung On Dialysis Diabetes Disease Disease Disease No No No No No History: Symptoms/Diagnosis Selection Items Chest pain SOB History: CV Disease Selection Items Known CAD History: Stress Tests Stress or Imaging Studies Performed No History: Other Disease Selection Items CAD Cancer HTN History: [place]/CV Data Previous Cath Date Previous CABG Date 07/02/2016 07/06/2001 History: Other Current Smoker Method Quit Packs a Day Years Used Pack Years No Cigarettes 36 Years Ago 1 25 25 Labs Hgb (g/dl) Hct (%) WBC (l/cumm) Platelets (thousands) 11.60-17.00 35.00-51.00 4.00-11.00 150.00-450.00 10.0 32 3.7 156 Glucose (mg/dl) BUN (mg/dl) Creatinine (mg/dl) BUN:Creatinine (1:x) 74.00-106.00 7.00-18.00 0.50-1.30 10.00-20.00 105 23 1.1 20.9 Na (meq/l) K (meq/l) 136.00-145.00 3.50-5.10 137 4.1 INR (PTT:PT) 0.90-1.10 1 Troponin I (ng/ml) CPK-MB (ng/ML) 0.02-0.05 0.50-3.60 0.02 Not Drawn Medication Medication Total Dose (Bolus/Oral) Medication Total Dosage/Unit 1% XYLOCAINE 10 mL ANGIOMAX BOLUS 9 mL NTG (IC) 300 mcg VERSED 3 mg Medications (Bolus/Oral) Medication Time Given Dosage/Unit Administered By Reason VERSED 09/10/2017 7:36:28 AM 1 mg Wendie Lomas 1 mg VERSED given in lab by Wendie Lomas RN via Central IV. Ordered by Manoj Chery. VERSED 09/10/2017 7:39:02 AM 1 mg Mrache, Wendie 1 mg VERSED given in lab by Wendie Lomas, DEBORAH via Central IV. Ordered by Manoj Chery. 1% XYLOCAINE 09/10/2017 7:39:10 AM 10 mL Manoj Chery 10 mL 1% XYLOCAINE given in lab by Manoj Chery in Right Groin via Subcutaneous. Ordered by Manoj Chery. VERSED 09/10/2017 8:06:01 AM 1 mg Mrache, Wendie 1 mg VERSED given in lab by Wendie Lomas, DEBORAH via Central IV. Ordered by Manoj Chery. ANGIOMAX BOLUS 09/10/2017 8:09:08 AM 9 mL Karen Lomast 9 mL ANGIOMAX BOLUS given in lab by Wendie Lomas RN via Central IV. Ordered by Manoj Chery. NTG (IC) 09/10/2017 8:18:32 AM 100 mcg Manoj Chery 100 mcg NTG (IC) given in lab by Manoj Chery via Intra-coronary. Ordered by Manoj Chery. NTG (IC) 09/10/2017 8:18:44 AM 100 mcg Manoj Chery 100 mcg NTG (IC) given in lab by Manoj Chery via Intra-coronary. Ordered by Manoj Chery. NTG (IC) 09/10/2017 8:23:56 AM 100 mcg Manoj Chery 100 mcg NTG (IC) given in lab by Manoj Chery via Intra-coronary. Ordered by Manoj Chery. Medication (Drip) Medication Time Given Dosage/Unit Concentration/Unit Diluent (ml) Solution ANGIOMAX DRIP 09/10/2017 8:08:56 AM 1.75 mg/kg/hr 250 mg 50 NaCl .9 1.75 mg/kg/hr ANGIOMAX DRIP given in lab by Wendie Lomas, DEBORAH via Central IV. Pump/Drip Flow = 20. 65 ml/hr using NaCl .9 with a concentration of 250 mg in 50 ml. Ordered by Manoj Chery. IV Solutions 09/10/2017 7:05:48 AM 0 mL (IV) 500 NaCl .9 Patient arrived on IV Solutions in Left Antecubital via Peripheral IV. Pump/Drip Flow = 20 ml/hr usin g NaCl .9. Ordered by Manoj Chery. Initial Case Assessment Cardiovascular HR Rhythm NIBP Chest Pain 68 nsr 154/85 0 Edema Present Skin color Skin None Normal Warm Dry Circulatory - Right Pulses Dorsalis Pedis Femoral 1 3 Scale (0,1,2,3,4,d) Circulatory - Left Pulses Dorsalis Pedis Femoral 1 3 Scale (0,1,2,3,4,d) Neurological State Oriented to time-place- Alert Moves all extremities person Respiration - General Respiration Rate SpO2 (%) (B/min) 15 97 Final Case Assessment Cardiovascular HR Rhythm NIBP Chest Pain 65 nsr 151/75 0 Edema Present Skin color Skin None Normal Warm Dry Circulatory - Right Pulses Dorsalis Pedis Femoral 1 3 Scale (0,1,2,3,4,d) Circulatory - Left Pulses Dorsalis Pedis Femoral 1 3 Scale (0,1,2,3,4,d) Neurological State Oriented to time-place- Alert Moves all extremities person Respiration - General Respiration Rate SpO2 (%) (B/min) 15 97 Chronological Log Time Study Chronological Log 7:05:39 Patient arrived via Bed. 7:05:40 Patient Name, D.O.B, / Armband Verified By R.N. 7:05:40 Consent signed by the physician and the patient and verified by the Architectural Drafting Instructor staff. 7:05:41 Pre-op and post- op instructions given; patient acknowledges understanding of instructions. 7:05:41 Verbal Stimulation=2 Physical Stimulation=2 Airway=2 Respiration=2 TOTAL=8. (0=absent, 1=li mited, 2=present) 7:05:42 Presedation assessment performed by Architectural Drafting Instructor RN. 7:05:43 Immediate Presedation assesment performed by physician. 7:05:44 Patient has been NPO for More than 6Hrs. 7:05:44 Skin Breakdown- none per patient 7:05:45 Patient Warmer Placed on the Table. 7:05:46 Gudelia Prominences Protected 7:05:47 A # 20 IV was noted in the Antecubital (left). Grade = 0 Patient arrived on IV Solutions in Left Antecubital via Peripheral IV. Pump/Drip Flow = 20 ml/h r using NaCl .9. Ordered 7:05:48 by Manoj Chery. 7:05:49 History and physical on the chart or being dictated. Vitals capture started with the following parameters, Patient=Adult, Interval=5 min, Initial Pr vgrnpo=157 mmHg, 7:14:06 Deflation Rate=5 mmHg, Cuff placed on Right Ankle 7:15:19 HR=78 bpm, CAYH=161/75 mmhg, SpO2=98.0 %, Resp=13 B/min, Pain=0, Parviz=10, Cortes=2 Assessment: Initial Case, HR=68 BPM, Rhythm=nsr, KUMT=554/85 mmhg, Chest Pain=0, Edema=None, Col or=Normal, Skin = Warm, Dry Right Pulses: Fidel Ped=1, Femoral=3 7:20:06 Left Pulses: Fidel Ped=1, Femoral=3 Neurological: State=Alert, Ox3, CASTRO Respiration: Resp=15 B/min, SpO2=97 % 7:20:13 HR=70 bpm, ZLLH=650/85 mmhg, SpO2=97.0 %, Resp=19 B/min, Pain=0, Parviz=10, Cortes=2 7:20:45 Bilateral groins prepped with 2% chlorhexidine, and draped after a 3 minute waiting time. 7:22:47 Reference ECG taken 7:23:07 Pressure channel 1 zeroed. 7:23:44 MD paged 7:24:46 HR=68 bpm, IQAW=921/80 mmhg, SpO2=97.0 %, Resp=23 B/min, Pain=0, Parviz=10, Cortes=2 7:29:45 HR=66 bpm, WTYU=074/74 mmhg, SpO2=95.0 %, Resp=7 B/min, Pain=0, Parviz=10, Cortes=2 7:31:46 MD arrived. 7:34:48 HR=65 bpm, WXFG=729/72 mmhg, SpO2=96.0 %, Resp=11 B/min, Pain=0, Parviz=10, Cortes=2 7:36:28 1 mg VERSED given in lab by Wendie Lomas, RN via Central IV. Ordered by Manoj Chery. Time Out. Correct patient, correct procedure, correct physician, power injector not loaded with contrast with surgical 7:37:59 team present. Time Out Concurred by MD and individual staff in procedure. 7:38:38 Case Start 7:39:02 1 mg VERSED given in lab by Wendie Lomas RN via Central IV. Ordered by Manoj Chery. 7:39:10 10 mL 1% XYLOCAINE given in lab by Manoj Chery in Right Groin via Subcutaneous. Ordered by Manoj Chery. 7:39:47 HR=69 bpm, BFSC=190/75 mmhg, SpO2=97.0 %, Resp=18 B/min, Pain=0, Parviz=10, Cortes=2 7:40:35 Access site was Right Femoral Artery. 7:40:43 A SHEATH, FR6.5 PRELUDE 11CM FR 6.5 was advanced into the Fem Art (right) using the Percutan eous technique. A PIGTAIL ANG. 145 INFINITI CATHETER FR 6 was advanced over a wire. OMNIPAQUE, 350 MG, 100ML 100 ML was 7:41:57 used for injections. Recorded Pressure: LV, HR=64, Condition=Condition 1 7:42:59 (Left Ventricle) LV 144/1/7 7:43:47 The LV was injected at 8 cc/sec for a total of 32. OMNIPAQUE, 350 MG, 100ML 100ML used. Recorded Pressure: LV, Ao, HR=69, Condition=Condition 1 7:44:35 (Left Ventricle) LV 140/0/9, (Aorta) Ao 142/62/94 7:44:46 HR=67 bpm, ZUIP=712/74 mmhg, SpO2=96.0 %, Resp=12 B/min After removing the current catheter a JL 4.5 INFINITI CATHETER FR 6 was advanced over a WIRE, 3M MJ .035 180CM 7:44:53 180CM. Recorded Pressure: Ao, HR=66, Condition=Condition 1 7:48:49 (Aorta) Ao 151/67/106 7:49:30 The LCA was injected and visualized at various angles. OMNIPAQUE, 350 MG, 100ML 100ML used. 7:49:47 HR=64 bpm, WRVF=374/71 mmhg, SpO2=96.0 %, Resp=17 B/min, Pain=0, Parviz=10, Cortes=2 7:51:43 Catheter was removed A JR 4.0 INFINITI CATHETER FR 6 was advanced over a wire. OMNIPAQUE, 350 MG, 100ML 100ML was use d for 7:51:44 injections. 7:52:00 The RCA was injected and visualized at various angles. OMNIPAQUE, 350 MG, 100ML 100ML used. 7:54:13 Catheter was removed 7:54:52 HR=64 bpm, HWIK=682/69 mmhg, SpO2=97.0 %, Resp=17 B/min, Pain=0, Parviz=10, Cortes=2 7:59:51 HR=62 bpm, LPWK=485/69 mmhg, SpO2=97.0 %, Resp=15 B/min, Pain=0, Parviz=10, Cortes=2 A XB 4.0 GUIDE CATHETER FR 6 was advanced over a wire. OMNIPAQUE, 350 MG, 100ML 100ML was used f or 8:04:30 injections. 8:04:52 HR=66 bpm, QVXF=358/74 mmhg, SpO2=98.0 %, Resp=14 B/min, Pain=0, Parviz=10, Cortes=2 8:05:27 Catheter was removed 8:06:01 1 mg VERSED given in lab by Wendie Lomas RN via Central IV. Ordered by Manoj Chery. A XB 4.0 SH GUIDE CATHETER FR 6 was advanced over a wire. OMNIPAQUE, 350 MG, 100ML 100ML was use d for 8:08:31 injections. 1.75 mg/kg/hr ANGIOMAX DRIP given in lab by Wendie Lomas RN via Central IV. Pump/Drip Flow = 20.65 ml/hr 8:08:56 using NaCl .9 with a concentration of 250 mg in 50 ml. Ordered by Manoj Chery. 8:09:08 9 mL ANGIOMAX BOLUS given in lab by Wendie Lomas RN via Central IV. Ordered by Manoj Chery. 8:10:39 HR=65 bpm, ZROI=176/77 mmhg, SpO2=95.0 %, Resp=15 B/min, Pain=0, Parviz=10, Cortes=2 8:13:44 A PRIME WIRE, VERRATA 185CM 185CM was inserted via Fem Art (right). 8:14:53 HR=64 bpm, OYNB=255/72 mmhg, SpO2=96.0 %, Resp=15 B/min, Pain=0, Parviz=10, Cortes=2 8:16:53 Interventional wire has crossed the lesion 8:18:32 100 mcg NTG (IC) given in lab by Manoj Chery via Intra-coronary. Ordered by Manoj Chery. 8:18:44 100 mcg NTG (IC) given in lab by Manoj Chery via Intra-coronary. Ordered by Manoj Chery. 8:19:14 Flow Wire was was placed in the LAD Mid. The FFR measures ~FFR~ percent. The IFR measures 87 Percent. 8:19:54 HR=69 bpm, CRVV=378/75 mmhg, SpO2=94.0 %, Resp=15 B/min, Pain=0, Parviz=10, Cortes=2 8:20:54 The PRIME WIRE, VERRATA 185CM 185CM was removed, and moved down CX 8:23:56 100 mcg NTG (IC) given in lab by Manoj Chery via Intra-coronary. Ordered by Manjo Chery. 8:24:00 Interventional wire has crossed the lesion 8:24:49 HR=65 bpm, IQWT=213/73 mmhg, SpO2=96.0 %, Resp=15 B/min, Pain=0, Parviz=10, Cortes=2 8:25:30 Flow Wire was was placed in the CIRC Mid. The FFR measures ~FFR~ percent. The IFR measures 9 8 Percent. 8:26:37 Flow Wire was was placed in the OM1 Prox. The FFR measures ~FFR~ percent. The IFR measures 9 8 Percent. 8:27:26 Wire removed 8:27:38 Catheter was removed 8:27:44 Case End 8:27:48 Angiomax drip DCed per . 8:29:40 In the Fem Art (right) the SHEATH, FR6.5 PRELUDE 11CM FR 6.[address] by Manoj Chery. Assessment: Final Case, HR=65 BPM, Rhythm=nsr, FSGT=267/75 mmhg, Chest Pain=0, Edema=None, Color =Normal, Skin = Warm, Dry Right Pulses: Fidel Ped=1, Femoral=3 8:29:46 Left Pulses: Fidel Ped=1, Femoral=3 Neurological: State=Alert, Ox3, CASTRO Respiration: Resp=15 B/min, SpO2=97 % 8:29:52 HR=65 bpm, QPLK=212/75 mmhg, SpO2=95.0 %, Resp=15 B/min, Pain=0, Parviz=10, Cortes=2 8:30:05 Sterile dressing applied to site 8:30:06 No case complications noted. 8:30:06 Cine recording checked. 8:30:10 Bedside Report will be given. 8:30:13 Verbal Stimulation=2 Physical Stimulation=2 Airway=2 Respiration=2 TOTAL=8. (0=absent, 1=qureshi ited, 2=present) 8:30:19 A Left Heart Cath was performed. 8:34:53 XFEA=653/77 mmhg, SpO2=91.0 %, Resp=15 B/min, Pain=0, Parviz=10, Cortes=2 8:37:32 Vitals capture stopped. End Study - Contrast Media Used In Study Contrast Total Opened (mL) Total Used (mL) Total Wasted (mL) Omnipaque 110 110 0 End Study - Maximum Contrast Load Max Contrast Load (mL) 268.2 End Study - Radiation Exposure Fluoro Time (minutes) 7.5 End Study - Patient Disposition Complications Transferred To Interventional Outcome No Architectural Drafting Instructor Holding No attempt made
[2017-09-10] MEDS ORDERED: SODIUM CHLOR 0.9% 1000 ML INJ 1,000 ML IV SCH (08:45)
[2017-09-10] MEDS ORDERED: SODIUM CHLORIDE 0.9% FLUSH 10 ML FLUSH IV FLUSH PRN ×2 (08:45→16:15)
[2017-09-10] MEDS: RANOLAZINE 500 MG EXTENDED RELEASE TAB PO SCH ×2 (09:00→20:51)
[2017-09-10] MEDS: ASPIRIN EC 81 MG TABEC PO SCH (09:00)
[2017-09-10] MEDS: HEPARIN SODIUM - SQ 10,000 UNITS/ML VIAL SQ SCH ×2 (09:00→20:25)
[2017-09-10] MEDS: SODIUM CHLORIDE 0.9% FLUSH 10 ML FLUSH IV FLUSH SCH ×4 (09:00→20:52)
[2017-09-10] MEDS: LISINOPRIL 5 MG TAB PO SCH (09:00)
[2017-09-10] MEDS: ISOSORBIDE MONONITRATE 60 MG CR TAB (IMDUR) PO SCH ×2 (09:00→20:25)
[2017-09-10] MEDS: PANTOPRAZOLE SOD 20 MG DELAYED RELEASE TAB PO SCH (09:00)
[2017-09-10] MEDS: MORPHINE SULFATE 4 MG/ML INJ IV PUSH PRN ×3 (09:00→15:15)
[2017-09-10] MEDS: METOPROLOL SUCCINATE 50 MG EXTENDED RELEASE TAB PO SCH (09:00)
[2017-09-10] MEDS: NITROGLYCERIN-D5W 50 MG/250 ML 250 ML IV PRN ×10 (09:02→16:48)
--- NOTE | 2017-09-10 09:12 | MA ---
cc: Manoj Chery MD,Do PROCEDURE PERFORMED: Left heart catheterization, left ventriculography, coronary angiography, fractional flow reserve of the left anterior descending and circumflex vessels. BRIEF HISTORY: Radha Ramos is a 76-year-old female with known coronary disease. She has had no revascularization procedures. She comes in with medically refractory angina despite a good medical regimen. DESCRIPTION OF PROCEDURE: Patient was brought to the cardiac laborer pipeline in a fasting state. The right groin was prepped and draped in sterile fashion using 1% lidocaine for local anesthesia. A 6.5 Ugandan sheath was inserted in the right femoral artery without difficulty. The left ventricular pressure and LV gram on a pullback were performed with an angled pigtail catheter. Coronary angiography was completed using a left 4.5 Michael for the left coronary artery and a right 4 Michael for the right coronary artery. The situation was somewhat puzzling so I decided to do iFR measurements. A 6 Ugandan XB 4 guiding catheter damped so I switched to an XB 4 guiding catheter with side holes. I then passed a pressure wire into the distal LAD with an iFR measurement of 0.86. I then did a pullback and there was a steady decrement in pressure throughout the distal, mid and proximal LAD. There was no single spot; i.e., the ostial LAD lesion, the mid LAD lesion and the distal lesions in total are causing ischemia. I then did similar measurements of the distal circumflex and obtuse marginal branch and got normal values with those of 0.98. After studying her films, I think she is best off with surgical revascularization. The Angiomax was turned off. Note, the sheath will be pulled manually once the Angiomax wears off, and cardiothoracic surgery consult is made and obtained. FINDINGS: 1. Hemodynamics: Left ventricular pressure is 140 systolic over 0 with an end-diastolic pressure of 9. Aortic pressure is 151/67 with a mean of 106. During simultaneous LV to aorta pullback, there was no gradient. 2. Left ventriculography: Left ventriculography shows severe global hypokinesis. The EF is only 25%. Note that this is a dramatic change from her cath 13 months ago. 3. Coronary angiography: Left main coronary artery has about 30% to 40% stenosis. The LAD has an ostial 35% stenosis. LAD has diffuse disease. The major diagonal branch has a long zone of stenting. Just proximal to the stenting, there appears to be a focal stenosis that is significant, about 80%, and the entire stent appears narrow at at least 50%. The distal portion of the diagonal appears graftable. The LAD past the diagonal and just past first septal principal statistical scientist branch has about a 60% stenosis. Then the distal LAD has a somewhat long 50% to 60% stenosis. Beyond that is a fairly normal segment of the LAD suitable for grafting. Circumflex artery has about a 25% ostial stenosis. First obtuse marginal branch is patent. At the bifurcation of the distal circumflex with the second obtuse marginal branch, second obtuse marginal branch is subtotally occluded. The very small distal circumflex vessel has a irregularities. Note that FFR of the distal circumflex and first obtuse marginal branches, however, was normal. The right coronary artery was totally occluded proximally. There are generous nomi-ah-hbrla collaterals seen. CONCLUSIONS: 1. Normal hemodynamics. 2. Severely impaired left ventricular function with significant drop in ejection fraction from 13 months ago. 3. Severe coronary artery disease with multiple lesions in the left anterior descending that in some total are significantly flow limiting. These lesions include the ostial, proximal to mid, and distal left anterior descending. In addition, there is severe stenosis of the diagonal branch suitable for grafting, and the right coronary artery is totally occluded. RECOMMENDATIONS: Coronary artery bypass grafting to the distal LAD, diagonal branch and right coronary artery. The circumflex artery was not shown to have ischemia and does not require grafting. MD AMINATA Charles/JESU , 08:44 AM , 09:10 AM
[2017-09-10] MEDS: MORPHINE SULFATE 2 MG/ML INJ IV PUSH PRN (09:17)
[2017-09-10] MEDS: SODIUM CHLOR 0.9% 1000 ML INJ 1,000 ML IV SCH (10:24)
--- NOTE | 2017-09-10 16:12 | PD.CAR.PN ---
CVT Progress Note Subjective/Hospital Course: pt seen and evaluated / full consult to follow sts risk score discussed with pt RISK SCORES About the STS Risk Calculator Procedure: CAB Only Risk of Mortality: 9.125% Morbidity or Mortality: 33.75% Long Length of Stay: 17.116% Short Length of Stay: 15.559% Permanent Stroke: 1.902% Prolonged Ventilation: 29.905% DSW Infection: 0.65% Renal Failure: 8.327% Reoperation: 10.383% Objective: Vital Signs Date Time Temp Pulse Resp B/P (MAP) Pulse Ox O2 Delivery O2 Flow Rate FiO2 09/10/17 16:02 59 160/76 09/10/17 15:52 61 144/82 09/10/17 15:41 60 170/72 09/10/17 15:32 57 172/82 09/10/17 15:25 61 178/100 09/10/17 15:14 74 161/76 09/10/17 10:07 99 Room Air 09/10/17 09:16 55 149/72 09/10/17 09:02 63 181/69 09/10/17 05:07 98.3 61 16 116/58 (77) 99 09/10/17 00:45 62 09/09/17 23:42 98.2 70 16 142/66 (91) 96 09/09/17 20:04 98.1 74 20 136/83 (100) 98 09/09/17 17:38 96.3 64 20 134/63 (86) 97 Labs: Laboratory Tests Test 09/10/17 05:30 White Blood Count 3.6 TH/MM3 (4.0-11.0) Red Blood Count 3.72 MIL/MM3 (4.00-5.30) Hemoglobin 10.8 GM/DL (11.6-15.3) Hematocrit 32.6 % (35.0-46.0) Mean Corpuscular Volume 87.7 FL (80.0-100.0) Mean Corpuscular Hemoglobin 29.2 PG (27.0-34.0) Mean Corpuscular Hemoglobin Concent 33.2 % (32.0-36.0) Red Cell Distribution Width 16.6 % (11.6-17.2) Platelet Count 156 TH/MM3 (150-450) Mean Platelet Volume 8.9 FL (7.0-11.0) Neutrophils (%) (Auto) 42.2 % (16.0-70.0) Lymphocytes (%) (Auto) 42.7 % (9.0-44.0) Monocytes (%) (Auto) 11.7 % (0.0-8.0) Eosinophils (%) (Auto) 2.9 % (0.0-4.0) Basophils (%) (Auto) 0.5 % (0.0-2.0) Neutrophils # (Auto) 1.5 TH/MM3 (1.8-7.7) Lymphocytes # (Auto) 1.6 TH/MM3 (1.0-4.8) Monocytes # (Auto) 0.4 TH/MM3 (0-0.9) Eosinophils # (Auto) 0.1 TH/MM3 (0-0.4) Basophils # (Auto) 0.0 TH/MM3 (0-0.2) CBC Comment DIFF FINAL Differential Comment Blood Urea Nitrogen 23 MG/DL (7-18) Creatinine 1.10 MG/DL (0.50-1.00) Random Glucose 105 MG/DL (74-106) Calcium Level 8.0 MG/DL (8.5-10.1) Magnesium Level 2.1 MG/DL (1.5-2.5) Sodium Level 137 MEQ/L (136-145) Potassium Level 4.1 MEQ/L (3.5-5.1) Chloride Level 102 MEQ/L (98-107) Carbon Dioxide Level 28.8 MEQ/L (21.0-32.0) Anion Gap 6 MEQ/L (5-15) Estimat Glomerular Filtration Rate 48 ML/MIN (>89) Result Diagram: 09/10/1730 09/10/1730 Danette Jaffe Sep 10, 2017 16:12
--- NOTE | 2017-09-10 17:09 | MB ---
cc: Danette Jaffe Jacqueline R ARNP DATE OF CONSULT: 09/10/2017 HISTORY OF PRESENT ILLNESS: A 76-year-old female with longstanding history of coronary artery disease. She has had a coronary artery bypass grafting approximately 17 years ago in [facility] in [place]. She has had multiple catheterization procedures since. She had stenting of the diagonal branch by Dr. Paul in 2011, stenting of the mid-circumflex artery which closed and then had to be reopened. Her last catheterization was in June of [address] Todd. Ejection fraction at that time was 40% and at the time the LAD had mid disease of 40% and some in-stent diagonal disease. The circumflex was diffusely diseased with a patent stent in the AV groove. She was felt to be treated medically at that point; however, she started having increasing chest pain for the last 10 days with sweating substernal left-sided chest discomfort with or without exertion. Troponins were negative but because of worsening chest pain she came to the emergency room to be admitted. She underwent cardiac catheterization by Dr. Chery which showed an ejection fraction of 25%, left main disease of 30, approximate LAD ostial 40, mid-distal LAD 60%, diagonal 80, the obtuse marginal 99, the RCA was totally occluded with egxo-[id number] collaterals. The IFR of the LAD was 0.87, the left circumflex was 0.98 and the OM was 0.98. We were consulted to evaluate for re-do coronary artery bypass grafting to the LAD, diagonal and RCA. PAST MEDICAL HISTORY: 1. Hypertension. 2. Hyperlipidemia. 3. Statin intolerance. 4. Previous iron deficiency anemia. Multiple bowl surgeries causing a component of the iron deficiency anemia. 5. She has had a 20-pound weight loss which sounds like a gastroparesis. 6. Recurrent genital herpes. 7. History of previous stomach cancer. 8. Uterine cancer. PAST SURGICAL HISTORY: 1. Hysterectomy. 2. Last surgery was by Dr. Carcamo who did an exploratory lap with extensive lysis of adhesions, segmental colon resection, low pelvic anastomosis, segmental transverse colon resection, primary anastomosis back in October of 2016. 3. History of colostomy status post Shaun resection. 4. History of gastric resection. ALLERGIES: MULTIPLE INCLUDING - STATINS. AMLODIPINE. LOVENOX. States heparin, which states too much bleeding after cardiac surgery but has a port that is flushed with heparin at all times, so this is not an actual allergy. HOME MEDICATIONS: 1. Chronic O2 use at 2 liters. 2. Ranexa. 3. Imdur. 4. Metoprolol. 5. Lasix. 5. Omeprazole. FAMILY HISTORY: Mother from cancer and Alzheimer's and father from circulatory problems. SOCIAL HISTORY: The patient is . Her is currently residing at [facility] at a rehab facility. They have children of their own; she has four, he has five children. Prior tobacco use. REVIEW OF SYSTEMS: GENERAL: No night sweats, fever, heat or cold intolerance. SKIN: No psoriasis, itching or hives. HEENT: No blurred vision, hearing loss. RESPIRATORY: Positive for shortness of breath. No cough. CARDIOVASCULAR: As above in the HPI. GENITOURINARY: No burning, frequency or urgency. CHIEF QUALITY OFFICER: No history of TIA, CVA, seizure disorder. ENDOCRINOLOGY: No history of diabetes. PHYSICAL EXAMINATION: GENERAL: A somewhat frail-appearing female. The patient is awake, alert, in no acute distress. VITAL SIGNS: Blood pressure 140/80, heart rate of 60. HEAD: Normocephalic, atraumatic. EYES: Pupils equal and reactive. MOUTH: Oral mucosa pink, moist. NECK: Supple. No JVD. HEART SOUNDS: S1, S2. Regular rate and rhythm. No audible murmurs, rubs or gallops. LUNGS: Clear to auscultation. No wheezes, rales or rhonchi. CHEST: She has as well-healed mid-sternal sternotomy scar. ABDOMEN: Soft, slightly protuberant. She has got multiple scars on her abdomen. She has a very pinpoint, small type wound, she states is still healing from her last abdominal surgery, currently no drainage. There is some mild erythema at the site. EXTREMITIES: Trace edema with good distal pulses. LABORATORY DATA: Hemoglobin 10, hematocrit of 32, white cell count of 3.6, platelet count of 156. Sodium 137, potassium 4.1, BUN of 23, creatinine 1.10, magnesium 2.1. INR 1.0. IMAGING STUDIES: Carotid ultrasound - Less than 50% bilateral internal carotids. Chest x-ray - No acute changes. She has an ultrasound from December of 2016 which showed an ejection fraction at that time of 42%, some mild diastolic dysfunction, systolic function moderately impaired, some mild mitral regurgitation and mild tricuspid regurgitation. IMPRESSION AND PLAN: This is a 76-year-old female with history of coronary artery disease, prior coronary artery bypass grafting 17 years ago with multiple post-percutaneous coronary intervention, stenting, now with unstable angina with blockages including the left anterior descending, diagonal and right coronary artery. Her risk of mortality is 9.125, morbidity/mortality 33%. She is high risk for repeat current surgery. She has multiple comorbidities including frequent abdominal surgeries, gastroparesis. Coronary artery catheterization films have been evaluated by Dr. Milena Broussard. At this time further workup will include vein mapping, also CT of the chest and further plan as per Dr. Milena Broussard regarding risk and planning for surgery. MIKEY Brandt MD JRT/BUSTER , 04:25 PM , 05:07 PM
[2017-09-10] MEDS: ONDANSETRON HCL 4 MG/2 ML VIAL IV PUSH PRN (17:29)
--- NOTE | 2017-09-10 17:48 | RADRPT ---
EXAM DATE/TIME: 09/10/2017 16:58 [facility] COMPARISON: No previous studies available for comparison. INDICATIONS : Pre op cardiac surgery. MEDICAL HISTORY : Myocardial infarction. Congestive heart failure. Hypercholesterolemia. Anticoagulant plavix. Chest pa in. Hypertension. Dyspnea. Ulcer. Gastroesophageal reflux. Fibromyalgia. Arthritis. Colon cancer. Antonette motherapy. Nausea. SURGICAL HISTORY : CABG. Coronary artery stent. Appendectomy. Bilateral cataract surgery. Cardiac catheterization. Hyste rectomy. Colostomy. ENCOUNTER: Initial ACUITY: 1 day PAIN SCORE: 0/10 LOCATION: Bilateral legs. TECHNIQUE: Venous ultrasound of the left and right leg was performed from the inguinal ligament to the proximal calf. Real-time, color Doppler and spectral tracing, compression and augmentation techniques were us ed. FINDINGS: RIGHT LEG: There is normal compressibility of the deep venous system from the inguinal region to the proximal ca lf. No echogenic clot is seen in the lumen of the common femoral, femoral, popliteal, and posterior tibial veins. There is a normal response of the venous system to proximal and distal augmentation an d respiration. LEFT LEG: There is normal compressibility of the deep venous system from the inguinal region to the proximal ca lf. No echogenic clot is seen in the lumen of the common femoral, femoral, popliteal, and posterior tibial veins. There is a normal response of the venous system to proximal and distal augmentation an d respiration. CONCLUSION: 1. No sonographic evidence for lower extremity DVT. Maulik Fischer MD on September 10, 2017 at 17:46 Board Certified Radiologist. This report was verified electronically.
--- NOTE | 2017-09-10 17:49 | RADRPT ---
EXAM DATE/TIME: 09/10/2017 17:08 [facility] COMPARISON: No previous studies available for comparison. INDICATIONS : Pre op cardiac surgery. MEDICAL HISTORY : Myocardial infarction. Congestive heart failure. Hypercholesterolemia. Anticoagulant plavix. Chest pa in. Hypertension. Dyspnea. Ulcer. Gastroesophageal reflux. Fibromyalgia. Arthritis. Colon cancer. Antonette motherapy. Nausea. SURGICAL HISTORY : CABG. Coronary artery stent. Appendectomy. Bilateral cataract surgery. Cardiac catheterization. Hyste rectomy. Colostomy. ENCOUNTER: Initial ACUITY: 1 day PAIN SCORE: 0/10 LOCATION: Bilateral legs. GREATER SAPHENOUS VEIN THIGH: PROXIMAL: Right 4 mm Left 5 mm MID: Right 3 mm Left 3 mm DISTAL: Right 5 mm Left 2 mm CALF: PROXIMAL: Right 4 mm Left Non-visualized MID: Right Non-visualized Left Non-visualized DISTAL: Right Non-visualized Left Non-visualized FINDINGS: The venous system of the lower extremities are patent by color Doppler imaging. Measurements of the leg veins (in mm) are listed above. CONCLUSION: 1. Lower extremity venous mapping, as above. Maulik Fischer MD on September 10, 2017 at 17:47 Board Certified Radiologist. This report was verified electronically.
[2017-09-10] MEDS ORDERED: IOHEXOL 350 MG/ML 50 ML BTL (for Cath Lab) OTHER ONE (19:14)
[2017-09-10] MEDS ORDERED: IOHEXOL 350 MG/ML 100 ML BTL (for Cath Lab) OTHER ONE (19:14)
[2017-09-10] MEDS ORDERED: SODIUM CHLORIDE 0.9% FLUSH 10 ML FLUSH IV FLUSH SCH (21:00)
[2017-09-11] VITALS (25 sets, daily range): BP systolic 91–163; BP diastolic 50–82; PULSE 54–77; RESP 16–18; TEMP 97.4–98.2; O2SAT 95–98
[2017-09-11 06:03] LABS: BACTERIA, URINE OCC /hpf; BILIRUBIN, URINE NEG (NEG); BLOOD, URINE NEG (NEG); GLUCOSE,URINE NEG (NEG); KETONE, URINE 10 mg/dL (NEG); NITRITE,URINE NEG (NEG); PH, URINE 5.5 (5.0-8.5); URINE COLOR YELLOW (YELLW/STRAW); URINE LEUKOCYTE ESTERASE SMALL (NEG)
[2017-09-11 08:12] LABS: BASOPHIL % 0.3 % (0.0-2.0); EOSINOPHIL # 0.1 TH/MM3 (0-0.4); EOSINOPHIL % 2.2 % (0.0-4.0); HEMATOCRIT 33.3 % (35.0-46.0); HEMOGLOBIN 11.2 GM/DL (11.6-15.3); LYMPH % 31.4 % (9.0-44.0); LYMPHOCYTE # 1.1 TH/MM3 (1.0-4.8); MEAN CELL VOLUME 88.5 FL (80.0-100.0); MEAN CORPUSCULAR HEMOGLOBIN 29.7 PG (27.0-34.0); MEAN CORPUSCULAR HGB CONC 33.6 % (32.0-36.0); MONO % 9.5 % (0.0-8.0); MONOCYTE # 0.3 TH/MM3 (0-0.9); NEUT % 56.6 % (16.0-70.0); PLATELET COUNT 125 TH/MM3 (150-450); RED BLOOD COUNT 3.76 MIL/MM3 (4.00-5.30); RED CELL DISTRIBUTION WIDTH 16.6 % (11.6-17.2); WHITE BLOOD COUNT 3.5 TH/MM3 (4.0-11.0)
[2017-09-11 08:39] LABS: BICARBONATE 29.3 MEQ/L (21.0-32.0); CALCIUM 8.4 MG/DL (8.5-10.1); CREATININE 0.76 MG/DL (0.50-1.00); MAGNESIUM 2.1 MG/DL (1.5-2.5)
--- NOTE | 2017-09-11 08:55 | PD.CARD.PN ---
Subjective Subjective Remarks Had chest pain post cath - on IV NTG/ BP then went low. NTG off. No chest pain this AM. C/o feeling weak. A litte nausea Objective Medications Current Medications Medications (Trade) Dose Ordered Sig/Tata Route Start Time Stop Time Status Last Admin (NS Flush) 2 ml UNSCH PRN IV FLUSH 09/08/17 20:00 (NS Flush) 2 ml BID IV FLUSH 09/08/17 21:00 09/10/17 20:26 (Tylenol) 650 mg Q4H PRN PO 09/08/17 20:00 (Compazine Supp) 25 mg Q12H PRN RECTAL 09/08/17 20:00 09/10/17 20:25 (Narcan Inj) 0.4 mg UNSCH PRN IV PUSH 09/08/17 20:00 (Lasix) 20 mg DAILY PRN PO 09/08/17 20:15 (Imdur) 60 mg BID PO 09/08/17 21:00 09/10/17 20:25 (Toprol Xl) 50 mg DAILY PO 09/09/17 09:00 09/09/17 09:54 (Protonix) 20 mg DAILY PO 09/09/17 09:00 09/10/17 09:00 (Ranexa) 1,000 mg BID PO 09/08/17 21:00 09/10/17 20:51 (Heparin Inj) 5,000 units Q12HR SQ 09/09/17 09:00 09/10/17 20:25 (Nitrostat Sl) 0.4 mg Q5M PRN SL 09/08/17 21:45 09/08/17 23:01 (Ecotrin Ec) 162 mg DAILY PO 09/09/17 10:15 09/09/17 12:34 (Morphine Inj) 2 mg Q3H PRN IV PUSH 09/09/17 10:30 09/10/17 09:17 Sodium Chloride 1,000 ml @ 83 mls/hr Q12H3M IV 09/09/17 10:18 09/14/17 10:17 09/09/17 20:11 (Aspirin) 325 mg HOME TEACHING GRADES 7 AND 8 TEACHER PO 09/09/17 10:30 09/13/17 10:29 (Benadryl) 50 mg HOME TEACHING GRADES 7 AND 8 TEACHER PO 09/09/17 10:30 3/11/18 10:29 (Valium) 5 mg HOME TEACHING GRADES 7 AND 8 TEACHER PO 09/09/17 10:30 09/13/17 10:29 (Prinivil) 5 mg DAILY PO 09/10/17 09:00 09/10/17 09:00 (Vistaril) 25 mg Q6HR PRN PO 09/10/17 12:00 Nitroglycerin/ Dextrose 250 ml @ 1.5 mls/hr TITRATE PRN IV 09/10/17 08:45 09/10/17 16:48 (NS Flush) 2 ml BID IV FLUSH 09/10/17 09:00 09/10/17 20:52 (Morphine Inj) 4 mg Q30M PRN IV PUSH 09/10/17 08:45 09/10/17 15:15 (Zofran Inj) 4 mg Q6H PRN IV PUSH 09/10/17 17:30 09/10/17 17:29 Vital Signs / I&O Vital Signs Date Time Temp Pulse Resp B/P (MAP) Pulse Ox O2 Delivery O2 Flow Rate FiO2 09/11/17 07:01 59 09/11/17 06:47 117/56 (76) 09/11/17 05:57 113/53 (73) 09/11/17 05:00 56 09/11/17 04:00 62 09/11/17 03:00 97.4 57 18 91/50 (64) 09/11/17 03:00 54 09/11/17 02:00 56 09/11/17 01:00 60 09/11/17 00:34 83/42 09/11/17 00:15 57 105/52 09/11/17 00:00 56 09/11/17 00:00 57 104/55 09/10/17 23:00 97.4 57 18 117/78 (91) 97 09/10/17 23:00 64 09/10/17 23:00 57 117/78 09/10/17 22:00 62 09/10/17 22:00 57 132/86 (101) 09/10/17 22:00 57 132/86 09/10/17 21:00 51 120/60 (80) 09/10/17 21:00 51 120/60 09/10/17 21:00 50 09/10/17 20:00 54 09/10/17 20:00 96.7 60 18 126/58 (80) 98 09/10/17 20:00 60 126/60 09/10/17 20:00 54 126/58 (80) 09/10/17 19:00 54 09/10/17 19:00 53 138/78 (98) 09/10/17 18:01 53 09/10/17 18:01 97.4 53 18 147/68 (94) 91 09/10/17 16:48 63 119/87 09/10/17 16:32 58 134/71 09/10/17 16:02 59 160/76 09/10/17 15:52 61 144/82 09/10/17 15:41 60 170/72 09/10/17 15:32 57 172/82 09/10/17 15:25 61 178/100 09/10/17 15:14 74 161/76 09/10/17 10:07 99 Room Air 09/10/17 09:16 55 149/72 09/10/17 09:02 63 181/69 I/O 09/10/17 09/10/17 09/10/17 09/11/17 09/11/17 09/11/17 07:00 15:00 23:00 07:00 15:00 23:00 Intake Total 0 ml 680 ml Output Total 0 ml 750 ml Balance 0 ml -70 ml Intake Oral 0 ml 680 ml IV Total 0 ml Output Urine Total 0 ml 750 ml Stool Total 0 ml # Voids 0 Physical Exam GENERAL: Thin WF No acute distress. HEENT: Jugular venous pressure is normal. CHEST: Lungs clear to auscultation bilaterally. Unlabored respiratory effort. CARDIAC: Regular rate and rhythm without S3, S4, or murmur. ABDOMEN: Soft, nontender, no hepatosplenomegaly. Bowel sounds present. EXTREMITIES: No clubbing, cyanosis, or edema. Laboratory Laboratory Tests Test 09/10/17 20:36 09/11/17 04:45 09/11/17 06:17 Nasal Screen MRSA (PCR) MRSA DETECTED Urine Color YELLOW Urine Turbidity CLEAR Urine pH 5.5 Urine Specific [place] 1.039 Urine Protein NEG mg/dL Urine Glucose (UA) NEG mg/dL Urine Ketones 10 mg/dL Urine Occult Blood NEG Urine Nitrite NEG Urine Bilirubin NEG Urine Urobilinogen LESS THAN 2.0 MG/DL Urine Leukocyte Esterase SMALL Urine RBC LESS THAN 1 /hpf Urine WBC 17 /hpf Urine Bacteria OCC /hpf Urine Yeast (Budding) FEW Microscopic Urinalysis Comment CULTURE INDICATED White Blood Count 3.5 TH/MM3 Red Blood Count 3.76 MIL/MM3 Hemoglobin 11.2 GM/DL Hematocrit 33.3 % Mean Corpuscular Volume 88.5 FL Mean Corpuscular Hemoglobin 29.7 PG Mean Corpuscular Hemoglobin Concent 33.6 % Red Cell Distribution Width 16.6 % Platelet Count 125 TH/MM3 Mean Platelet Volume 9.0 FL Neutrophils (%) (Auto) 56.6 % Lymphocytes (%) (Auto) 31.4 % Monocytes (%) (Auto) 9.5 % Eosinophils (%) (Auto) 2.2 % Basophils (%) (Auto) 0.3 % Neutrophils # (Auto) 2.0 TH/MM3 Lymphocytes # (Auto) 1.1 TH/MM3 Monocytes # (Auto) 0.3 TH/MM3 Eosinophils # (Auto) 0.1 TH/MM3 Basophils # (Auto) 0.0 TH/MM3 CBC Comment DIFF FINAL Differential Comment Blood Urea Nitrogen 17 MG/DL Creatinine 0.76 MG/DL Random Glucose 104 MG/DL Calcium Level 8.4 MG/DL Magnesium Level 2.1 MG/DL Sodium Level 136 MEQ/L Potassium Level 4.1 MEQ/L Chloride Level 101 MEQ/L Carbon Dioxide Level 29.3 MEQ/L Anion Gap 6 MEQ/L Estimat Glomerular Filtration Rate 74 ML/MIN Total Creatine Kinase 44 U/L Assessment and Plan Problem List: (1) CAD (coronary artery disease) ICD Codes: I25.10 - CAD (coronary artery disease) Status: Acute (2) HTN (hypertension) ICD Codes: I10 - Essential (primary) hypertension Status: Chronic (3) Ischemic cardiomyopathy ICD Codes: I25.5 - Ischemic cardiomyopathy Status: Acute Assessment and Plan LAD has multiple lesion on IFR pullback - BUSTAMANTE to LAD best option with grafts to RCA and diagonal. New LV dysfunction concerning - likely ischemic mediated. She has faild medical management. Manoj Chery MD Sep 11, 2017 08:55
[2017-09-11] MEDS: SODIUM CHLORIDE 0.9% FLUSH 10 ML FLUSH IV FLUSH SCH ×4 (09:00→21:51)
[2017-09-11] MEDS: ISOSORBIDE MONONITRATE 60 MG CR TAB (IMDUR) PO SCH ×2 (09:12→21:51)
[2017-09-11] MEDS: RANOLAZINE 500 MG EXTENDED RELEASE TAB PO SCH ×2 (09:12→21:51)
[2017-09-11] MEDS: ASPIRIN EC 81 MG TABEC PO SCH (09:12)
[2017-09-11] MEDS: LISINOPRIL 5 MG TAB PO SCH (09:12)
[2017-09-11] MEDS: PANTOPRAZOLE SOD 20 MG DELAYED RELEASE TAB PO SCH (09:12)
[2017-09-11] MEDS: METOPROLOL SUCCINATE 50 MG EXTENDED RELEASE TAB PO SCH (09:12)
[2017-09-11] MEDS: HEPARIN SODIUM - SQ 10,000 UNITS/ML VIAL SQ SCH ×2 (09:13→21:51)
[2017-09-11] MEDS: cefTRIAXone INJ 1,000 MG in SODIUM CHLORIDE 0.9% INJ 100 ML IV SCH (12:04)
[2017-09-11] MEDS: ONDANSETRON HCL 4 MG/2 ML VIAL IV PUSH PRN (12:12)
--- NOTE | 2017-09-11 13:59 | PD.CAR.PN ---
CVT Progress Note Subjective/Hospital Course: 76-year-old female with longstanding history of coronary artery disease. She has had a coronary artery bypass grafting approximately 17 years ago in [facility] in [place]. She has had multiple catheterization procedures since. She had stenting of the diagonal branch by Dr. Paul in 2011, stenting of the mid-circumflex artery which closed and then had to be reopened. Her last catheterization was in June of [address] Todd. Ejection fraction at that time was 40% and at the time the LAD had mid disease of 40% and some in- stent diagonal disease. The circumflex was diffusely diseased with a patent stent in the AV groove. She was felt to be treated medically at that point; however, she started having increasing chest pain for the last 10 days with sweating substernal left-sided chest discomfort with or without exertion. Troponins were negative but because of worsening chest pain she came to the emergency room to be admitted. She underwent cardiac catheterization by Dr. Chery which showed an ejection fraction of 25%, left main disease of 30, approximate LAD ostial 40, mid-distal LAD 60%, diagonal 80, the obtuse marginal 99, the RCA was totally occluded with [id number] collaterals. The IFR of the LAD was 0.87, the left circumflex was 0.98 and the OM was 0.98. We were consulted to evaluate for re-do coronary artery bypass grafting to the LAD, diagonal and RCA. PAST MEDICAL HISTORY: Hypertension, Hyperlipidemia, Statin intolerance, Previous iron deficiency anemia. Multiple bowl surgeries causing a component of the iron deficiency anemia, gastroparesis, Recurrent genital herpes. History of previous stomach cancer, Uterine cancer. PAST SURGICAL HISTORY: Hysterectomy, Last surgery was by Dr. Carcamo who did an exploratory lap with extensive lysis of adhesions, segmental colon resection , low pelvic anastomosis, segmental transverse colon resection, primary anastomosis October of 2016, History of colostomy status post Shaun resection , History of gastric resection 09/11 no chest pain last pm await PFT and CT chest results Objective: GENERAL: A&O x 3 SKIN: Warm and dry. HEAD: Normocephalic. EYES: No scleral icterus. No injection or drainage. NECK: Supple, trachea midline. No JVD or lymphadenopathy. CARDIOVASCULAR: Regular rate and rhythm without murmurs, gallops, or rubs. RESPIRATORY: Breath sounds equal bilaterally. No accessory muscle use. GASTROINTESTINAL: Abdomen soft, non-tender, nondistended. MUSCULOSKELETAL: No cyanosis, or edema. BACK: Nontender without obvious deformity. No CVA tenderness. Vital Signs Date Time Temp Pulse Resp B/P (MAP) Pulse Ox O2 Delivery O2 Flow Rate FiO2 09/11/17 11:45 97.9 69 18 149/69 (95) 96 09/11/17 09:23 95 21 09/11/17 08:45 97.5 64 18 137/63 (87) 95 09/11/17 07:01 59 09/11/17 06:47 117/56 (76) 09/11/17 05:57 113/53 (73) 09/11/17 05:00 56 09/11/17 04:00 62 09/11/17 03:00 97.4 57 18 91/50 (64) 09/11/17 03:00 54 09/11/17 02:00 56 09/11/17 01:00 60 09/11/17 00:34 83/42 09/11/17 00:15 57 105/52 09/11/17 00:00 56 09/11/17 00:00 57 104/55 09/10/17 23:00 97.4 57 18 117/78 (91) 97 09/10/17 23:00 64 09/10/17 23:00 57 117/78 09/10/17 22:00 62 09/10/17 22:00 57 132/86 (101) 09/10/17 22:00 57 132/86 09/10/17 21:00 51 120/60 (80) 09/10/17 21:00 51 120/60 09/10/17 21:00 50 09/10/17 20:00 54 09/10/17 20:00 96.7 60 18 126/58 (80) 98 09/10/17 20:00 60 126/60 09/10/17 20:00 54 126/58 (80) 09/10/17 19:00 54 09/10/17 19:00 53 138/78 (98) 09/10/17 18:01 53 09/10/17 18:01 97.4 53 18 147/68 (94) 91 09/10/17 16:48 63 119/87 3/8/18 16:32 58 134/71 09/10/17 16:02 59 160/76 09/10/17 15:52 61 144/82 09/10/17 15:41 60 170/72 09/10/17 15:32 57 172/82 09/10/17 15:25 61 178/100 09/10/17 15:14 74 161/76 Labs: Laboratory Tests Test 09/11/17 04:45 09/11/17 06:17 Urine Color YELLOW (YELLW/STRAW) Urine Turbidity CLEAR (CLEAR) Urine pH 5.5 (5.0-8.5) Urine Specific [place] 1.039 (1.002-1.035) Urine Protein NEG mg/dL (NEG-TRACE) Urine Glucose (UA) NEG mg/dL (NEG) Urine Ketones 10 mg/dL (NEG) Urine Occult Blood NEG (NEG) Urine Nitrite NEG (NEG) Urine Bilirubin NEG (NEG) Urine Urobilinogen LESS THAN 2.0 MG/DL (LESS Urine Leukocyte Esterase SMALL (NEG) Urine RBC LESS THAN 1 /hpf (0-3) Urine WBC 17 /hpf (0-5) Urine Bacteria OCC /hpf (NONE) Urine Yeast (Budding) FEW (NONE) Microscopic Urinalysis Comment CULTURE INDICATED White Blood Count 3.5 TH/MM3 (4.0-11.0) Red Blood Count 3.76 MIL/MM3 (4.00-5.30) Hemoglobin 11.2 GM/DL (11.6-15.3) Hematocrit 33.3 % (35.0-46.0) Mean Corpuscular Volume 88.5 FL (80.0-100.0) Mean Corpuscular Hemoglobin 29.7 PG (27.0-34.0) Mean Corpuscular Hemoglobin Concent 33.6 % (32.0-36.0) Red Cell Distribution Width 16.6 % (11.6-17.2) Platelet Count 125 TH/MM3 (150-450) Mean Platelet Volume 9.0 FL (7.0-11.0) Neutrophils (%) (Auto) 56.6 % (16.0-70.0) Lymphocytes (%) (Auto) 31.4 % (9.0-44.0) Monocytes (%) (Auto) 9.5 % (0.0-8.0) Eosinophils (%) (Auto) 2.2 % (0.0-4.0) Basophils (%) (Auto) 0.3 % (0.0-2.0) Neutrophils # (Auto) 2.0 TH/MM3 (1.8-7.7) Lymphocytes # (Auto) 1.1 TH/MM3 (1.0-4.8) Monocytes # (Auto) 0.3 TH/MM3 (0-0.9) Eosinophils # (Auto) 0.1 TH/MM3 (0-0.4) Basophils # (Auto) 0.0 TH/MM3 (0-0.2) CBC Comment DIFF FINAL Differential Comment Blood Urea Nitrogen 17 MG/DL (7-18) Creatinine 0.76 MG/DL (0.50-1.00) Random Glucose 104 MG/DL (74-106) Calcium Level 8.4 MG/DL (8.5-10.1) Magnesium Level 2.1 MG/DL (1.5-2.5) Sodium Level 136 MEQ/L (136-145) Potassium Level 4.1 MEQ/L (3.5-5.1) Chloride Level 101 MEQ/L (98-107) Carbon Dioxide Level 29.3 MEQ/L (21.0-32.0) Anion Gap 6 MEQ/L (5-15) Estimat Glomerular Filtration Rate 74 ML/MIN (>89) Total Creatine Kinase 44 U/L (26-192) Result Diagram: 09/11/1761609/11/17616 (1) CAD (coronary artery disease) Plan: await PFT and CT chest decision for surgery per Dr Broussard (2) HTN (hypertension) (3) Ischemic cardiomyopathy Danette Jaffe Sep 11, 2017 13:59
--- NOTE | 2017-09-11 18:55 | HHI.PR ---
Subjective Remarks doing well no complains- a little anxious about the procedure earlier was nauseated now had a good dinner no diarrhea Objective Vitals Vital Signs Date Time Temp Pulse Resp B/P (MAP) Pulse Ox O2 Delivery O2 Flow Rate FiO2 09/11/17 16:01 72 09/11/17 15:13 98.2 65 18 140/82 (101) 96 09/11/17 15:00 74 09/11/17 14:00 68 09/11/17 13:00 60 09/11/17 12:00 70 09/11/17 11:45 97.9 69 18 149/69 (95) 96 09/11/17 11:00 71 09/11/17 10:00 76 09/11/17 09:23 95 21 09/11/17 09:00 60 09/11/17 08:45 97.5 64 18 137/63 (87) 95 09/11/17 08:00 66 09/11/17 07:01 59 09/11/17 06:47 117/56 (76) 09/11/17 05:57 113/53 (73) 09/11/17 05:00 56 09/11/17 04:00 62 09/11/17 03:00 97.4 57 18 91/50 (64) 09/11/17 03:00 54 09/11/17 02:00 56 09/11/17 01:00 60 09/11/17 00:34 83/42 09/11/17 00:15 57 105/52 09/11/17 00:00 56 09/11/17 00:00 57 104/55 09/10/17 23:00 97.4 57 18 117/78 (91) 97 09/10/17 23:00 64 09/10/17 23:00 57 117/78 09/10/17 22:00 62 09/10/17 22:00 57 132/86 (101) 09/10/17 22:00 57 132/86 09/10/17 21:00 51 120/60 (80) 09/10/17 21:00 51 120/60 09/10/17 21:00 50 09/10/17 20:00 54 09/10/17 20:00 96.7 60 18 126/58 (80) 98 09/10/17 20:00 60 126/60 09/10/17 20:00 54 126/58 (80) 09/10/17 19:00 54 09/10/17 19:00 53 138/78 (98) I/O 09/10/17 09/10/17 09/10/17 09/11/17 09/11/17 09/11/17 07:00 15:00 23:00 07:00 15:00 23:00 Intake Total 0 ml 680 ml 960 ml Output Total 0 ml 750 ml 950 ml Balance 0 ml -70 ml 10 ml Intake Oral 0 ml 680 ml 960 ml IV Total 0 ml Output Urine Total 0 ml 750 ml 950 ml Stool Total 0 ml # Voids 0 3 # Bowel Movements 0 Result Diagram: 09/11/17 0617 09/11/17 0617 Imaging Last Impressions Lower Extremity Ultrasound 09/10/17 0000 Signed Impressions: Service Date/Time: September 17:08 - CONCLUSION: 1. Lower extremity venous mapping, as above. Maulik Fischer MD Chest X-Ray 09/08/17 1529 Signed Impressions: Service Date/Time: Friday, September 08, 2017 15:49 - CONCLUSION: No acute disease. No significant change has occurred. Zia Landers MD Carotid Artery Ultrasound 09/08/17 0000 Signed Impressions: Service Date/Time: Friday, September 08, 2017 22:00 - CONCLUSION: Mild plaque formation in the carotid bulb bilaterally with hemodynamic parameters characteristic of less than 50%% stenosis. Abundio Mccoy MD Objective Remarks awake and alert, no distress lungs-clear regular rhythm abdomensoft, nontender extremities no edema neuro exam- non focal Procedures cardiac catheterization A/P Problem List: (1) Chest pain ICD Code: R07.9 - Chest pain Status: Acute Assessment and Plan 76 years old severe CAD Cardiomyopathy- EF30%- clinically not in failure HYpertenion HYperlipidemia -plan for CABG - continue meds- BB, ASA, statins,CALLIE, nitrates, Ranexa GERD. -continue PPI JULIO C on CKD stage 2. Nonoliguric. - Creatinine improved DVT prophylaxis with subcu heparin Pippa Browning MD Sep 11, 2017 18:55
--- NOTE | 2017-09-11 23:17 | RADRPT ---
EXAM DATE/TIME: 09/11/2017 20:12 [facility] COMPARISON: No previous studies available for comparison. INDICATIONS : Pre-op, CABG. RADIATION DOSE: 5.58 CTDIvol (mGy) MEDICAL HISTORY : Cardiovascular disease. Hypertension. Carcinoma, colon. SURGICAL HISTORY : Appendectomy. Hysterectomy.CABG Spinal stimulator. ENCOUNTER: Initial ACUITY: 1 day PAIN SCALE: 0/10 LOCATION: chest TECHNIQUE: Volumetric scanning of the chest was performed. Using automated exposure control and adjustment of t he mA and/or kV according to patient size, radiation dose was kept as low as reasonably achievable to obtain optimal diagnostic quality images. DICOM format image data is available electronically for r eview and comparison. Follow-up recommendations for detected pulmonary nodules are based at a minimum on nodule size and pa tient risk factors according to Fleischner Society Guidelines. FINDINGS: LUNGS: There are bilateral linear areas of opacity in the lower lungs characteristic of scarring. No focal infiltrates or nodules seen. PLEURAE: There is no pleural thickening or pleural effusion. MEDIASTINUM: The heart and great vessels demonstrate no acute abnormality. There is no mediastinal or hilar lymph adenopathy. Coronary artery calcifications. AXILLAE: Within normal limits. No lymphadenopathy. MUSCULOSKELETAL: Evidence of prior median sternotomy with sternal wire sutures and mediastinal clips. MISCELLANEOUS: Right central line tip in the mid superior vena cava. Spinal stimulation electrodes in the mid thora cic bony spinal canal. CONCLUSION: No focal infiltrates seen. Mild linear scarring in both lung bases. Abundio Mccoy MD on September 11, 2017 at 23:13 Board Certified Radiologist. This report was verified electronically.
[2017-09-11] MEDS: hydrOXYzine PAMOATE 25 MG CAP PO PRN (23:59)
[2017-09-12] VITALS (22 sets, daily range): BP systolic 135–154; BP diastolic 63–76; PULSE 58–76; RESP 14–18; TEMP 97.6–99; O2SAT 95–98
[2017-09-12] MEDS: HEPARIN SODIUM - SQ 10,000 UNITS/ML VIAL SQ SCH ×2 (08:59→21:12)
[2017-09-12] MEDS: ASPIRIN EC 81 MG TABEC PO SCH (08:59)
[2017-09-12] MEDS: PANTOPRAZOLE SOD 20 MG DELAYED RELEASE TAB PO SCH (08:59)
[2017-09-12] MEDS: METOPROLOL SUCCINATE 50 MG EXTENDED RELEASE TAB PO SCH (09:00)
[2017-09-12] MEDS: RANOLAZINE 500 MG EXTENDED RELEASE TAB PO SCH ×2 (09:00→21:13)
[2017-09-12] MEDS: SODIUM CHLORIDE 0.9% FLUSH 10 ML FLUSH IV FLUSH SCH ×4 (09:00→21:12)
[2017-09-12] MEDS: LISINOPRIL 5 MG TAB PO SCH (09:00)
[2017-09-12] MEDS: LOPERAMIDE HCL 2 MG CAP PO PRN (09:02)
[2017-09-12] MEDS: ISOSORBIDE MONONITRATE 60 MG CR TAB (IMDUR) PO SCH ×2 (09:34→21:13)
[2017-09-12] MEDS: cefTRIAXone INJ 1,000 MG in SODIUM CHLORIDE 0.9% INJ 100 ML IV SCH (10:45)
--- NOTE | 2017-09-12 15:27 | HHI.PR ---
Subjective Remarks no complains no chest pain or shortness of breath Objective Vitals Vital Signs Date Time Temp Pulse Resp B/P (MAP) Pulse Ox O2 Delivery O2 Flow Rate FiO2 09/12/17 14:00 68 09/12/17 13:00 72 09/12/17 12:00 66 09/12/17 11:00 74 09/12/17 11:00 98.0 69 14 145/64 (91) 95 09/12/17 10:00 74 09/12/17 09:00 74 09/12/17 08:00 98.1 72 16 137/63 (87) 98 09/12/17 08:00 70 09/12/17 07:20 98 21 09/12/17 07:00 62 09/12/17 03:00 97.6 76 18 148/76 (100) 98 09/12/17 02:00 62 09/12/17 01:00 60 09/12/17 00:00 68 09/11/17 23:17 97.9 77 18 152/82 (105) 98 09/11/17 22:00 70 09/11/17 20:30 97.9 75 16 163/75 (104) 96 09/11/17 16:01 72 I/O 09/11/17 09/11/17 09/11/17 09/12/17 09/12/17 09/12/17 07:00 15:00 23:00 07:00 15:00 23:00 Intake Total 680 ml 960 ml 480 ml Output Total 750 ml 950 ml 1600 ml Balance -70 ml 10 ml -1120 ml Intake Oral 680 ml 960 ml 480 ml Output Urine Total 750 ml 950 ml 1600 ml Stool Total 0 ml # Voids 3 # Bowel Movements 0 3 Result Diagram: 09/11/17 0617 09/11/17 0617 Imaging Last Impressions Lower Extremity Ultrasound 09/10/17 0000 Signed Impressions: Service Date/Time: September 17:08 - CONCLUSION: 1. Lower extremity venous mapping, as above. Maulik Fischer MD Chest CT 09/10/17 0000 Signed Impressions: Service Date/Time: Monday, September 11, 2017 20:12 - CONCLUSION: No focal infiltrates seen. Mild linear scarring in both lung bases. Abundio Mccoy MD Chest X-Ray 09/08/17 1529 Signed Impressions: Service Date/Time: Friday, September 08, 2017 15:49 - CONCLUSION: No acute disease. No significant change has occurred. Zia Landers MD Carotid Artery Ultrasound 09/08/17 0000 Signed Impressions: Service Date/Time: Friday, September 08, 2017 22:00 - CONCLUSION: Mild plaque formation in the carotid bulb bilaterally with hemodynamic parameters characteristic of less than 50%% stenosis. Abundio Mccoy MD Objective Remarks awake and alert, no distress port in place - right chest wall lungs-clear regular rhythm abdomen soft, nontender extremities no edema neuro exam- non focal Procedures cardiac catheterization A/P Problem List: (1) Chest pain ICD Code: R07.9 - Chest pain Status: Acute Assessment and Plan 76 years old severe CAD Cardiomyopathy- EF30%- clinically not in failure HYpertenion HYperlipidemia -plan for CABG- next week - continue meds- BB, ASA, statins,CALLIE, nitrates, Ranexa GERD. -continue PPI JULIO C on CKD stage 2. Nonoliguric. - Creatinine improved DVT prophylaxis with subcu heparin Pippa Browning MD Sep 12, 2017 15:27
[2017-09-12] MEDS: NITROGLYCERIN 0.4 MG SL 25 TABS/BTL SL PRN ×2 (18:01→18:11)
[2017-09-12] MEDS: NITROGLYCERIN-D5W 50 MG/250 ML 250 ML IV PRN (19:48)
[2017-09-12] MEDS: ACETAMINOPHEN 325 MG TAB PO PRN (21:13)
[2017-09-12] MEDS: SODIUM CHLOR 0.9% 1000 ML INJ 1,000 ML IV SCH (22:39)
--- NOTE | 2017-09-12 23:06 | EKG ---
Date Performed: 09/11/2017 Time Performed: 05:31:20 PTAGE: 76 years EKG: Sinus bradycardia Left axis deviation Left bundle branch block Abnormal ECG PREVIOUS TRACING : 09/09/2017 05.23 Since the prior tracing, there has been no significant ford DOCTOR: Yandel Rob Interpretating Date/Time 09/12/2017 23:04:51
[2017-09-13] VITALS (26 sets, daily range): BP systolic 102–160; BP diastolic 52–110; PULSE 56–82; RESP 14–18; TEMP 97.6–98.5; O2SAT 96–97
[2017-09-13] MEDS: ACETAMINOPHEN 325 MG TAB PO PRN (04:09)
--- NOTE | 2017-09-13 08:04 | EKG ---
Date Performed: 09/12/2017 Time Performed: 17:19:26 PTAGE: 76 years EKG: Sinus rhythm . Left axis deviation Left anterior fascicular block Possible anteroseptal infarct - age undetermined Possible left ventricular hypertrophy Nonspecific T wave changes Abnormal ECG No significant change from prior electrocardiogram. PREVIOUS TRACING : 09/11/2017 05.31 DOCTOR: Shar Keith Interpretating Date/Time 09/13/2017 08:02:47
[2017-09-13] MEDS: SODIUM CHLORIDE 0.9% FLUSH 10 ML FLUSH IV FLUSH SCH ×4 (09:00→21:26)
[2017-09-13] MEDS: HEPARIN SODIUM - SQ 10,000 UNITS/ML VIAL SQ SCH ×2 (09:23→21:25)
[2017-09-13] MEDS: ASPIRIN EC 81 MG TABEC PO SCH (09:24)
[2017-09-13] MEDS: PANTOPRAZOLE SOD 20 MG DELAYED RELEASE TAB PO SCH (09:24)
[2017-09-13] MEDS: ISOSORBIDE MONONITRATE 60 MG CR TAB (IMDUR) PO SCH ×2 (09:24→21:26)
[2017-09-13] MEDS: LISINOPRIL 5 MG TAB PO SCH (09:24)
[2017-09-13] MEDS: RANOLAZINE 500 MG EXTENDED RELEASE TAB PO SCH ×2 (09:25→21:26)
[2017-09-13] MEDS: METOPROLOL SUCCINATE 50 MG EXTENDED RELEASE TAB PO SCH (09:25)
[2017-09-13] MEDS: cefTRIAXone INJ 1,000 MG in SODIUM CHLORIDE 0.9% INJ 100 ML IV SCH (11:11)
--- NOTE | 2017-09-13 15:44 | HHI.PR ---
Subjective Remarks complains of intermittent chest pain "fleeting" - no nausea vomiting or diaphoresis atypical pain -"comes and goes " now on NTG drip - feels good appears very comfortable, interactive Objective Vitals Vital Signs Date Time Temp Pulse Resp B/P (MAP) Pulse Ox O2 Delivery O2 Flow Rate FiO2 09/13/17 14:00 62 09/13/17 13:00 62 09/13/17 12:00 66 09/13/17 11:05 64 125/63 09/13/17 11:00 63 09/13/17 11:00 98.0 64 14 144/72 (96) 96 09/13/17 10:00 66 09/13/17 09:00 64 09/13/17 08:38 97 21 09/13/17 08:00 97.6 70 16 128/89 (102) 97 09/13/17 08:00 58 09/13/17 07:00 62 09/13/17 06:01 65 09/13/17 05:13 16 09/13/17 05:00 66 09/13/17 04:00 68 09/13/17 03:00 56 09/13/17 03:00 98.5 66 118/55 (76) 97 09/13/17 01:00 56 09/13/17 00:00 58 09/12/17 23:00 98.5 63 135/71 (92) 97 09/12/17 23:00 58 09/12/17 22:00 66 09/12/17 21:00 66 09/12/17 20:00 66 09/12/17 19:56 18 09/12/17 19:48 135/71 09/12/17 19:00 99.0 66 135/71 (92) 97 09/12/17 19:00 61 09/12/17 18:16 16 09/12/17 18:00 68 09/12/17 17:00 68 09/12/17 16:00 76 I/O 09/12/17 09/12/17 09/12/17 09/13/17 09/13/17 09/13/17 07:00 15:00 23:00 07:00 15:00 23:00 Intake Total 480 ml 720 ml 972.1 ml Output Total 1600 ml 900 ml 1200 ml Balance -1120 ml -180 ml -227.9 ml Intake Oral 480 ml 720 ml 960 ml IV Total 12.1 ml Output Urine Total 1600 ml 900 ml 1200 ml # Bowel Movements 3 2 Result Diagram: 09/11/17 0617 09/11/17 0617 Imaging Last Impressions Lower Extremity Ultrasound 09/10/17 0000 Signed Impressions: Service Date/Time: September 17:08 - CONCLUSION: 1. Lower extremity venous mapping, as above. Maulik Fischer MD Chest CT 09/10/17 0000 Signed Impressions: Service Date/Time: Monday, September 11, 2017 20:12 - CONCLUSION: No focal infiltrates seen. Mild linear scarring in both lung bases. Abundio Mccoy MD Chest X-Ray 09/08/17 1529 Signed Impressions: Service Date/Time: Friday, September 08, 2017 15:49 - CONCLUSION: No acute disease. No significant change has occurred. Zia Landers MD Carotid Artery Ultrasound 09/08/17 0000 Signed Impressions: Service Date/Time: Friday, September 08, 2017 22:00 - CONCLUSION: Mild plaque formation in the carotid bulb bilaterally with hemodynamic parameters characteristic of less than 50%% stenosis. Abundio Mccoy MD Objective Remarks awake and alert, no distress port in place - right chest wall lungs-clear regular rhythm abdomen soft, nontender extremities no edema neuro exam- non focal Procedures cardiac catheterization A/P Problem List: (1) Chest pain ICD Code: R07.9 - Chest pain Status: Acute Assessment and Plan 76 years old Severe CAD Cardiomyopathy- EF30%- clinically not in failure HYpertenion HYperlipidemia -plan for CABG- next week - continue meds- BB, ASA, statins,CALLIE,, Ranexa - started on NTG drip GERD. -continue PPI JULIO C on CKD stage 2. Nonoliguric. - Creatinine improved DVT prophylaxis with subcu heparin Pippa Browning MD Sep 13, 2017 15:44
[2017-09-13] MEDS: hydrOXYzine PAMOATE 25 MG CAP PO PRN (22:12)
[2017-09-13] MEDS: MORPHINE SULFATE 2 MG/ML INJ IV PUSH PRN (22:12)
[2017-09-14] VITALS (29 sets, daily range): BP systolic 95–137; BP diastolic 50–62; PULSE 56–104; RESP 16–19; TEMP 97.5–99.7; O2SAT 94–98
[2017-09-14] MEDS: RANOLAZINE 500 MG EXTENDED RELEASE TAB PO SCH ×2 (08:33→20:34)
[2017-09-14] MEDS: PANTOPRAZOLE SOD 20 MG DELAYED RELEASE TAB PO SCH (08:34)
[2017-09-14] MEDS: ASPIRIN EC 81 MG TABEC PO SCH (08:34)
[2017-09-14] MEDS: ISOSORBIDE MONONITRATE 60 MG CR TAB (IMDUR) PO SCH ×2 (08:34→20:34)
[2017-09-14] MEDS: LISINOPRIL 5 MG TAB PO SCH (08:34)
[2017-09-14] MEDS: METOPROLOL SUCCINATE 50 MG EXTENDED RELEASE TAB PO SCH (08:34)
[2017-09-14] MEDS: SODIUM CHLORIDE 0.9% FLUSH 10 ML FLUSH IV FLUSH SCH ×5 (08:35→20:37)
[2017-09-14] MEDS: HEPARIN SODIUM - SQ 10,000 UNITS/ML VIAL SQ SCH ×2 (08:35→20:38)
[2017-09-14] MEDS: LOPERAMIDE HCL 2 MG CAP PO PRN ×2 (08:37→22:10)
--- NOTE | 2017-09-14 09:44 | RSPPFT ---
DATE OF PROCEDURE: 09/11/17 COMMENTS: Spirometry demonstrates an FEV1 of 1.6 at 75% of predicted, FVC of 2.3 at 77%, FEF 25-75 is 59%. Post-bronchodilator study were not conducted. Flow volume loops suggest an obstructive pattern. IMPRESSION: 1. Mild to moderate obstructive airways disease.
[2017-09-14] MEDS: cefTRIAXone INJ 1,000 MG in SODIUM CHLORIDE 0.9% INJ 100 ML IV SCH (09:45)
--- NOTE | 2017-09-14 11:04 | RADRPT ---
EXAM DATE/TIME: 09/14/2017 09:37 [facility] COMPARISON: CT THORAX W/O CONTRAST, September 11, 2017, 20:12. CHEST SINGLE AP, August 06, 2015, 17:08. INDICATIONS : Fever. Atelectasis. Evaluate for pneumonia. MEDICAL HISTORY : None. SURGICAL HISTORY : CABG. Coronary artery stent. ENCOUNTER: Subsequent ACUITY: 1 week PAIN SCORE: 0/10 LOCATION: chest FINDINGS: Stable right IJ [id number] with port tubing in the proximal SVC. Minimal bibasilar parenchymal opa cities similar to prior exam. No new focal pleural or parenchymal opacities. Cardiomediastinal contou rs are stable. Remainder of the exam is unchanged. CONCLUSION: 1. Stable bibasilar atelectasis/scarring. 2. No acute abnormality or significant interval change. Maulik Fischer MD on September 14, 2017 at 11:00 Board Certified Radiologist. This report was verified electronically.
[2017-09-14 11:23] LABS: BASOPHIL % 0.5 % (0.0-2.0); EOSINOPHIL # 0.1 TH/MM3 (0-0.4); EOSINOPHIL % 2.5 % (0.0-4.0); HEMATOCRIT 32.6 % (35.0-46.0); HEMOGLOBIN 11.1 GM/DL (11.6-15.3); LYMPH % 27.8 % (9.0-44.0); LYMPHOCYTE # 1.4 TH/MM3 (1.0-4.8); MEAN CELL VOLUME 88.9 FL (80.0-100.0); MEAN CORPUSCULAR HEMOGLOBIN 30.1 PG (27.0-34.0); MEAN CORPUSCULAR HGB CONC 33.9 % (32.0-36.0); MEAN PLATELET VOLUME 9.2 FL (7.0-11.0); MONO % 9.7 % (0.0-8.0); MONOCYTE # 0.5 TH/MM3 (0-0.9); NEUT % 59.5 % (16.0-70.0); PLATELET COUNT 142 TH/MM3 (150-450); RED BLOOD COUNT 3.67 MIL/MM3 (4.00-5.30); RED CELL DISTRIBUTION WIDTH 16.8 % (11.6-17.2)
--- NOTE | 2017-09-14 11:23 | PD.CAR.PN ---
CVT Progress Note Subjective/Hospital Course: 76-year-old female with longstanding history of coronary artery disease. She has had a coronary artery bypass grafting approximately 17 years ago in [facility] in [place]. She has had multiple catheterization procedures since. She had stenting of the diagonal branch by Dr. Paul in 2011, stenting of the mid-circumflex artery which closed and then had to be reopened. Her last catheterization was in June of [address] Todd. Ejection fraction at that time was 40% and at the time the LAD had mid disease of 40% and some in- stent diagonal disease. The circumflex was diffusely diseased with a patent stent in the AV groove. She was felt to be treated medically at that point; however, she started having increasing chest pain for the last 10 days with sweating substernal left-sided chest discomfort with or without exertion. Troponins were negative but because of worsening chest pain she came to the emergency room to be admitted. She underwent cardiac catheterization by Dr. Chery which showed an ejection fraction of 25%, left main disease of 30, approximate LAD ostial 40, mid-distal LAD 60%, diagonal 80, the obtuse marginal 99, the RCA was totally occluded with [id number] collaterals. The IFR of the LAD was 0.87, the left circumflex was 0.98 and the OM was 0.98. We were consulted to evaluate for re-do coronary artery bypass grafting to the LAD, diagonal and RCA. PAST MEDICAL HISTORY: Hypertension, Hyperlipidemia, Statin intolerance, Previous iron deficiency anemia. Multiple bowl surgeries causing a component of the iron deficiency anemia, gastroparesis, Recurrent genital herpes. History of previous stomach cancer, Uterine cancer. PAST SURGICAL HISTORY: Hysterectomy, Last surgery was by Dr. Carcamo who did an exploratory lap with extensive lysis of adhesions, segmental colon resection , low pelvic anastomosis, segmental transverse colon resection, primary anastomosis October of 2016, History of colostomy status post Shaun resection , History of gastric resection 09/11 no chest pain last pm await PFT and CT chest results 09/14 had some chest pain over the weekend, now resolved, received some morphine last pm timing for surgery per Dr Broussard/ possible on low grade temp/ pt needs to be OOB, use IS recheck UA Objective: GENERAL: SKIN: Warm and dry. HEAD: Normocephalic. EYES: No scleral icterus. No injection or drainage. NECK: Supple, trachea midline. No JVD or lymphadenopathy. CARDIOVASCULAR: Regular rate and rhythm without murmurs, gallops, or rubs. RESPIRATORY: Breath sounds equal bilaterally. No accessory muscle use. GASTROINTESTINAL: Abdomen soft, non-tender, nondistended. MUSCULOSKELETAL: No cyanosis, or edema. BACK: Nontender without obvious deformity. No CVA tenderness. Vital Signs Date Time Temp Pulse Resp B/P (MAP) Pulse Ox O2 Delivery O2 Flow Rate FiO2 09/14/17 11:00 68 09/14/17 10:00 95/50 (65) 09/14/17 10:00 80 09/14/17 09:00 68 09/14/17 08:00 67 09/14/17 07:15 99.7 71 17 137/59 (85) 94 09/14/17 07:00 60 09/14/17 06:00 61 09/14/17 05:00 56 09/14/17 04:43 98.7 56 18 108/55 (72) 98 09/14/17 04:00 68 09/14/17 03:00 63 09/14/17 02:00 62 09/14/17 01:00 60 09/14/17 00:00 56 09/13/17 23:09 98.5 68 18 102/52 (69) 97 09/13/17 23:00 63 09/13/17 22:00 160/110 (127) 09/13/17 22:00 82 09/13/17 21:29 68 119/87 09/13/17 21:00 82 09/13/17 20:47 96 21 09/13/17 20:00 64 09/13/17 20:00 98.5 68 18 133/63 (86) 97 09/13/17 19:00 60 09/13/17 18:00 60 09/13/17 17:00 66 09/13/17 16:00 62 09/13/17 15:00 98.4 62 14 113/54 (73) 96 09/13/17 15:00 68 09/13/17 14:00 62 09/13/17 13:00 62 09/13/17 12:00 66 Labs: Laboratory Tests Test 09/14/17 10:55 Result Diagram: 09/11/17 0617 09/11/17 0617 (1) CAD (coronary artery disease) Plan: CT chest completed decision for surgery per Dr Broussard (2) HTN (hypertension) (3) Ischemic cardiomyopathy Danette Jaffe Sep 14, 2017 11:23
[2017-09-14 11:44] LABS: BICARBONATE 29.7 MEQ/L (21.0-32.0); CALCIUM 8.6 MG/DL (8.5-10.1); CREATININE 0.93 MG/DL (0.50-1.00)
--- NOTE | 2017-09-14 12:18 | HHI.PR ---
Subjective Remarks no chest pains off NTG drip no cough, no urinary complains Objective Vitals Vital Signs Date Time Temp Pulse Resp B/P (MAP) Pulse Ox O2 Delivery O2 Flow Rate FiO2 09/14/17 11:00 98.2 63 19 107/56 (73) 96 09/14/17 11:00 68 09/14/17 10:00 95/50 (65) 09/14/17 10:00 80 09/14/17 09:00 68 09/14/17 08:00 67 09/14/17 07:15 99.7 71 17 137/59 (85) 94 09/14/17 07:00 60 09/14/17 06:00 61 09/14/17 05:00 56 09/14/17 04:43 98.7 56 18 108/55 (72) 98 09/14/17 04:00 68 09/14/17 03:00 63 09/14/17 02:00 62 09/14/17 01:00 60 09/14/17 00:00 56 09/13/17 23:09 98.5 68 18 102/52 (69) 97 09/13/17 23:00 63 09/13/17 22:00 160/110 (127) 09/13/17 22:00 82 09/13/17 21:29 68 119/87 09/13/17 21:00 82 09/13/17 20:47 96 21 09/13/17 20:00 64 09/13/17 20:00 98.5 68 18 133/63 (86) 97 09/13/17 19:00 60 09/13/17 18:00 60 09/13/17 17:00 66 09/13/17 16:00 62 09/13/17 15:00 98.4 62 14 113/54 (73) 96 09/13/17 15:00 68 09/13/17 14:00 62 09/13/17 13:00 62 I/O 09/13/17 09/13/17 09/13/17 09/14/17 09/14/17 09/14/17 07:00 15:00 23:00 07:00 15:00 23:00 Intake Total 972.1 ml 100 ml 240 ml 100 ml Output Total 1200 ml 600 ml 1100 ml Balance -227.9 ml -500 ml -860 ml 100 ml Intake Oral 960 ml 240 ml IV Total 12.1 ml 100 ml 100 ml Output Urine Total 1200 ml 600 ml 1100 ml # Bowel Movements 2 1 Result Diagram: 09/14/17 1055 09/14/17 1055 Imaging Last Impressions Chest X-Ray 09/14/17 0000 Signed Impressions: Service Date/Time: Thursday, September 14, 2017 09:37 - CONCLUSION: 1. Stable bibasilar atelectasis/scarring. 2. No acute abnormality or significant interval change. Maulik Fischer MD Lower Extremity Ultrasound 09/10/17 0000 Signed Impressions: Service Date/Time: September 17:08 - CONCLUSION: 1. Lower extremity venous mapping, as above. Maulik Fischer MD Chest CT 09/10/17 0000 Signed Impressions: Service Date/Time: Monday, September 11, 2017 20:12 - CONCLUSION: No focal infiltrates seen. Mild linear scarring in both lung bases. Abundio Mccoy MD Carotid Artery Ultrasound 09/08/17 0000 Signed Impressions: Service Date/Time: Friday, September 08, 2017 22:00 - CONCLUSION: Mild plaque formation in the carotid bulb bilaterally with hemodynamic parameters characteristic of less than 50%% stenosis. Abundio Mccoy MD Objective Remarks awake and alert, no distress port in place - right chest wall lungs-clear regular rhythm abdomen soft, nontender extremities no edema neuro exam- non focal Procedures cardiac catheterization A/P Problem List: (1) Chest pain ICD Code: R07.9 - Chest pain Status: Acute Assessment and Plan 76 years old Severe CAD Cardiomyopathy- EF30%- clinically not in failure HYpertenion HYperlipidemia -plan for CABG- this week - continue meds- BB, ASA, statins,CALLIE,, Ranexa, po Nitrates GERD. -continue PPI JULIO C on CKD stage 2. Nonoliguric. - Creatinine improved Low grade fever this am - check UA, CXR - encourge Incentive spirometry hourly DVT prophylaxis with subcu heparin encourage out of bed Incentive spirometry Pippa Browning MD Sep 14, 2017 12:18
[2017-09-14] MEDS ORDERED: SODIUM CHLORIDE 0.9% FLUSH 10 ML FLUSH IV FLUSH PRN (17:00)
[2017-09-14] MEDS ORDERED: ceFAZolin 2 GM PREMIX 50 ML IV SCH (17:00)
[2017-09-14] MEDS ORDERED: METOPROLOL TARTRATE 25 MG TAB PO SCH (17:00)
[2017-09-14] MEDS ORDERED: DEXTROSE 50% IN WATER 50 ML VIAL(D50) IV PUSH PRN (17:00)
[2017-09-14] MEDS ORDERED: PAPAVERINE INJ 60 MG, NITROGLYCERIN INJ 100 MCG, DILTIAZEM INJ 100 MG in SODIUM CHLORID... IRRIGATION SCH (17:00)
[2017-09-14] MEDS ORDERED: INSULIN REGULAR (IV INFUSION) 100 UNITS in SODIUM CHLORIDE 0.9% INJ 99 ML IV PRN (17:00)
[2017-09-14] MEDS ORDERED: CEFAZOLIN INJ 500 MG in SODIUM CHLORIDE 0.9% IRR BTL 500 ML IRRIGATION SCH (17:00)
[2017-09-14] MEDS ORDERED: CHLORHEXIDINE GLUCONATE 4% SOLN 120 ML BTL TOPICAL SCH (17:00)
[2017-09-14] MEDS ORDERED: PILL SPLITTER OTHER PRN (17:00)
[2017-09-14] MEDS: MORPHINE SULFATE 2 MG/ML INJ IV PUSH PRN (20:34)
[2017-09-14] MEDS: MUPIROCIN 2% OINT 1 APPLIC/GM SYR EACH NARE SCH (20:36)
[2017-09-15] VITALS (30 sets, daily range): BP systolic 103–137; BP diastolic 56–84; PULSE 58–93; RESP 17–20; TEMP 97.6–98.8; O2SAT 96–99
[2017-09-15] MEDS: MORPHINE SULFATE 2 MG/ML INJ IV PUSH PRN ×3 (04:15→20:45)
[2017-09-15] MEDS: METOPROLOL SUCCINATE 50 MG EXTENDED RELEASE TAB PO SCH (08:14)
[2017-09-15] MEDS: RANOLAZINE 500 MG EXTENDED RELEASE TAB PO SCH ×2 (08:14→20:44)
[2017-09-15] MEDS: HEPARIN SODIUM - SQ 10,000 UNITS/ML VIAL SQ SCH ×2 (08:15→20:44)
[2017-09-15] MEDS: SODIUM CHLORIDE 0.9% FLUSH 10 ML FLUSH IV FLUSH SCH ×6 (08:15→20:46)
[2017-09-15] MEDS: ISOSORBIDE MONONITRATE 60 MG CR TAB (IMDUR) PO SCH ×2 (08:15→20:44)
[2017-09-15] MEDS: LOPERAMIDE HCL 2 MG CAP PO PRN ×2 (08:15→20:44)
[2017-09-15] MEDS: PANTOPRAZOLE SOD 20 MG DELAYED RELEASE TAB PO SCH (08:15)
[2017-09-15] MEDS: ASPIRIN EC 81 MG TABEC PO SCH (08:15)
[2017-09-15] MEDS: cefTRIAXone INJ 1,000 MG in SODIUM CHLORIDE 0.9% INJ 100 ML IV SCH (09:27)
[2017-09-15] MEDS: MUPIROCIN 2% OINT 1 APPLIC/GM SYR EACH NARE SCH ×2 (09:27→20:44)
--- NOTE | 2017-09-15 10:37 | PD.CAR.PN ---
CVT Progress Note Subjective/Hospital Course: 76-year-old female with longstanding history of coronary artery disease. She has had a coronary artery bypass grafting approximately 17 years ago in [facility] in [place]. She has had multiple catheterization procedures since. She had stenting of the diagonal branch by Dr. Paul in 2011, stenting of the mid-circumflex artery which closed and then had to be reopened. Her last catheterization was in June of [address] Todd. Ejection fraction at that time was 40% and at the time the LAD had mid disease of 40% and some in- stent diagonal disease. The circumflex was diffusely diseased with a patent stent in the AV groove. She was felt to be treated medically at that point; however, she started having increasing chest pain for the last 10 days with sweating substernal left-sided chest discomfort with or without exertion. Troponins were negative but because of worsening chest pain she came to the emergency room to be admitted. She underwent cardiac catheterization by Dr. Chery which showed an ejection fraction of 25%, left main disease of 30, approximate LAD ostial 40, mid-distal LAD 60%, diagonal 80, the obtuse marginal 99, the RCA was totally occluded with [id number] collaterals. The IFR of the LAD was 0.87, the left circumflex was 0.98 and the OM was 0.98. We were consulted to evaluate for re-do coronary artery bypass grafting to the LAD, diagonal and RCA. PAST MEDICAL HISTORY: Hypertension, Hyperlipidemia, Statin intolerance, Previous iron deficiency anemia. Multiple bowl surgeries causing a component of the iron deficiency anemia, gastroparesis, Recurrent genital herpes. History of previous stomach cancer, Uterine cancer. PAST SURGICAL HISTORY: Hysterectomy, Last surgery was by Dr. Carcamo who did an exploratory lap with extensive lysis of adhesions, segmental colon resection , low pelvic anastomosis, segmental transverse colon resection, primary anastomosis October of 2016, History of colostomy status post Shaun resection , History of gastric resection 09/11 no chest pain last pm await PFT and CT chest results 09/14 had some chest pain over the weekend, now resolved, received some morphine last pm timing for surgery per Dr Broussard/ possible on low grade temp/ pt needs to be OOB, use IS recheck UA 09/15 no more fevers for surgery on Objective: GENERAL: A&O x 3 SKIN: Warm and dry. HEAD: Normocephalic. EYES: No scleral icterus. No injection or drainage. NECK: Supple, trachea midline. No JVD or lymphadenopathy. CARDIOVASCULAR: Regular rate and rhythm without murmurs, gallops, or rubs. RESPIRATORY: Breath sounds equal bilaterally. No accessory muscle use. GASTROINTESTINAL: Abdomen soft, non-tender, nondistended. MUSCULOSKELETAL: No cyanosis, or edema. BACK: Nontender without obvious deformity. No CVA tenderness. Vital Signs Date Time Temp Pulse Resp B/P (MAP) Pulse Ox O2 Delivery O2 Flow Rate FiO2 09/15/17 10:00 64 09/15/17 09:00 75 09/15/17 08:00 59 09/15/17 07:15 98.3 67 19 109/84 (92) 99 09/15/17 07:00 62 09/15/17 06:11 63 09/15/17 05:12 58 09/15/17 04:57 63 09/15/17 03:25 98.8 67 17 129/60 (83) 96 09/15/17 03:14 64 09/15/17 02:19 65 09/15/17 01:15 62 09/15/17 00:07 64 09/14/17 23:15 63 09/14/17 23:15 98.1 65 16 105/54 (71) 96 09/14/17 22:50 96 09/14/17 22:12 98.1 65 16 105/54 (71) 96 09/14/17 21:15 96 09/14/17 20:24 97.5 68 18 123/59 (80) 97 09/14/17 20:00 104 09/14/17 19:25 60 09/14/17 18:00 64 09/14/17 17:00 75 09/14/17 16:00 68 09/14/17 15:00 68 17 110/62 (78) 96 09/14/17 15:00 64 09/14/17 14:00 62 09/14/17 13:00 66 09/14/17 12:00 78 09/14/17 11:00 98.2 63 19 107/56 (73) 96 09/14/17 11:00 68 Result Diagram: 09/14/17 1055 09/14/17 1055 (1) CAD (coronary artery disease) Plan: for surgery on (2) HTN (hypertension) Plan: controlled (3) Ischemic cardiomyopathy Plan: EF 35% will need to be on tamiko after surgery Danette Jaffe Sep 15, 2017 10:37
--- NOTE | 2017-09-15 10:40 | HHI.PR ---
Subjective Remarks The patient was anxious about her upcoming surgery. She said that she hasn't been getting out of bed. She still complained of chest pain in the center of her chest from time to time. She wanted to know how high risk for surgery she was. Discussed with nursing at the bedside. Objective Vitals Vital Signs Date Time Temp Pulse Resp B/P (MAP) Pulse Ox O2 Delivery O2 Flow Rate FiO2 09/15/17 10:00 64 09/15/17 09:00 75 09/15/17 08:00 59 09/15/17 07:15 98.3 67 19 109/84 (92) 99 09/15/17 07:00 62 09/15/17 06:11 63 09/15/17 05:12 58 09/15/17 04:57 63 09/15/17 03:25 98.8 67 17 129/60 (83) 96 09/15/17 03:14 64 09/15/17 02:19 65 09/15/17 01:15 62 09/15/17 00:07 64 09/14/17 23:15 63 09/14/17 23:15 98.1 65 16 105/54 (71) 96 09/14/17 22:50 96 09/14/17 22:12 98.1 65 16 105/54 (71) 96 09/14/17 21:15 96 09/14/17 20:24 97.5 68 18 123/59 (80) 97 09/14/17 20:00 104 09/14/17 19:25 60 09/14/17 18:00 64 09/14/17 17:00 75 09/14/17 16:00 68 09/14/17 15:00 68 17 110/62 (78) 96 09/14/17 15:00 64 09/14/17 14:00 62 09/14/17 13:00 66 09/14/17 12:00 78 09/14/17 11:00 98.2 63 19 107/56 (73) 96 09/14/17 11:00 68 I/O 09/14/17 09/14/17 09/14/17 09/15/17 09/15/17 09/15/17 07:00 15:00 23:00 07:00 15:00 23:00 Intake Total 240 ml 100 ml 480 ml 716 ml 100 ml Output Total 1100 ml Balance -860 ml 100 ml 480 ml 716 ml 100 ml Intake Oral 240 ml 480 ml 716 ml IV Total 100 ml 100 ml Output Urine Total 1100 ml # Voids 3 2 # Bowel Movements 1 1 3 Result Diagram: 09/14/17 1055 09/14/17 1055 Imaging Last Impressions Chest X-Ray 09/14/17 0000 Signed Impressions: Service Date/Time: Thursday, September 14, 2017 09:37 - CONCLUSION: 1. Stable bibasilar atelectasis/scarring. 2. No acute abnormality or significant interval change. Maulik Fischer MD Lower Extremity Ultrasound 09/10/17 0000 Signed Impressions: Service Date/Time: September 17:08 - CONCLUSION: 1. Lower extremity venous mapping, as above. Maulik Fischer MD Chest CT 09/10/17 0000 Signed Impressions: Service Date/Time: Monday, September 11, 2017 20:12 - CONCLUSION: No focal infiltrates seen. Mild linear scarring in both lung bases. Abundio Mccoy MD Carotid Artery Ultrasound 09/08/17 0000 Signed Impressions: Service Date/Time: Friday, September 08, 2017 22:00 - CONCLUSION: Mild plaque formation in the carotid bulb bilaterally with hemodynamic parameters characteristic of less than 50%% stenosis. Abundio Mccoy MD Objective Remarks GEN: awake and alert, no distress. SKIN: port in place - right chest wall. PULMONARY: CTAB. CARDIAC: regular rhythm. GI: abdomen soft, nontender. EXTREMITIES: no edema. NEURO: non focal. PSYCH: Slightly anxious. Procedures cardiac catheterization A/P Problem List: (1) Chest pain ICD Code: R07.9 - Chest pain Status: Acute Assessment and Plan Severe CAD The patient has had bypass surgery in the past. Cardiology recommendations appreciated. Multivessel coronary disease noted on cath. Cardiomyopathy- EF30%- clinically not in failure. CTS consult appreciated. - plan for CABG . - continue cardiac regimen- BB, ASA, statins, CALLIE, Ranexa, po nitrates. - check A1c and lipid profile. - encourage ambulation with physical therapy. - incentive spirometry. - ADAT. Add Boost. JULIO C on CKD stage 2 Nonoliguric. Creatinine improved. - follow BMP and avoid nephrotoxic agents. UTI UA indicative of infection. - continue IV ceftriaxone. - follow urine culture. DVT prophylaxis: heparin encourage out of bed Incentive spirometry Rene Ngo DO Sep 15, 2017 10:40
[2017-09-15 17:41] LABS: BACTERIA, URINE FEW /hpf; BILIRUBIN, URINE NEG (NEG); BLOOD, URINE NEG (NEG); GLUCOSE,URINE NEG (NEG); KETONE, URINE NEG (NEG); NITRITE,URINE NEG (NEG); PH, URINE 5.5 (5.0-8.5); RENAL EPITHELIAL CELLS <1 /hpf; SQUAMOUS EPITHELIAL CELL URINE <1 /hpf (0-5); URINE COLOR YELLOW (YELLW/STRAW); URINE LEUKOCYTE ESTERASE LARGE (NEG); WHITE BLOOD CELL CLUMPS OCC
[2017-09-15] MEDS: ONDANSETRON HCL 4 MG/2 ML VIAL IV PUSH PRN (20:43)
[2017-09-16] VITALS (27 sets, daily range): BP systolic 132–171; BP diastolic 60–79; PULSE 54–69; RESP 16–18; TEMP 97.5–98.6; O2SAT 97–98
[2017-09-16] MEDS: ONDANSETRON HCL 4 MG/2 ML VIAL IV PUSH PRN ×3 (04:43→18:01)
[2017-09-16 05:18] LABS: CHOLESTEROL 187 MG/DL (120-200); TRIGLYCERIDES 195 MG/DL (42-150)
[2017-09-16 05:20] LABS: CHOLESTEROL/ HDL RATIO 4.61 RATIO; HDL CHOLESTEROL 40.5 MG/DL (40.0-60.0); LDL CHOLESTEROL 108 MG/DL (0-99)
[2017-09-16] MEDS: MORPHINE SULFATE 2 MG/ML INJ IV PUSH PRN (06:13)
[2017-09-16] MEDS: SODIUM CHLORIDE 0.9% FLUSH 10 ML FLUSH IV FLUSH SCH ×6 (08:44→20:46)
[2017-09-16] MEDS: NITROGLYCERIN-D5W 50 MG/250 ML 250 ML IV PRN (08:44)
[2017-09-16] MEDS: PANTOPRAZOLE SOD 20 MG DELAYED RELEASE TAB PO SCH (09:11)
[2017-09-16] MEDS: METOPROLOL SUCCINATE 50 MG EXTENDED RELEASE TAB PO SCH (09:11)
[2017-09-16] MEDS: ISOSORBIDE MONONITRATE 60 MG CR TAB (IMDUR) PO SCH ×2 (09:11→20:45)
[2017-09-16] MEDS: ASPIRIN EC 81 MG TABEC PO SCH (09:11)
[2017-09-16] MEDS: MUPIROCIN 2% OINT 1 APPLIC/GM SYR EACH NARE SCH ×2 (09:11→20:46)
[2017-09-16] MEDS: HEPARIN SODIUM - SQ 10,000 UNITS/ML VIAL SQ SCH ×2 (09:12→20:45)
--- NOTE | 2017-09-16 09:21 | PD.CARD.PN ---
Subjective Subjective Remarks Has angina with minimal activity Objective Medications Current Medications Medications (Trade) Dose Ordered Sig/Tata Route Start Time Stop Time Status Last Admin (NS Flush) 2 ml UNSCH PRN IV FLUSH 09/08/17 20:00 (NS Flush) 2 ml BID IV FLUSH 09/08/17 21:00 09/15/17 20:45 (Tylenol) 650 mg Q4H PRN PO 09/08/17 20:00 09/13/17 04:09 (Compazine Supp) 25 mg Q12H PRN RECTAL 09/08/17 20:00 09/10/17 20:25 (Narcan Inj) 0.4 mg UNSCH PRN IV PUSH 09/08/17 20:00 (Lasix) 20 mg DAILY PRN PO 09/08/17 20:15 (Imdur) 60 mg BID PO 09/08/17 21:00 09/15/17 20:44 (Toprol Xl) 50 mg DAILY PO 09/09/17 09:00 09/15/17 08:14 (Protonix) 20 mg DAILY PO 09/09/17 09:00 09/15/17 08:15 (Ranexa) 1,000 mg BID PO 09/08/17 21:00 09/15/17 20:44 (Heparin Inj) 5,000 units Q12HR SQ 09/09/17 09:00 Future Hold 09/15/17 20:44 (Nitrostat Sl) 0.4 mg Q5M PRN SL 09/08/17 21:45 09/12/17 18:11 (Ecotrin Ec) 162 mg DAILY PO 09/09/17 10:15 09/15/17 08:15 (Morphine Inj) 2 mg Q3H PRN IV PUSH 09/09/17 10:30 09/16/17 06:13 (Prinivil) 5 mg DAILY PO 09/10/17 09:00 Future Hold 09/14/17 08:34 (Vistaril) 25 mg Q6HR PRN PO 09/10/17 12:00 09/13/17 22:12 Nitroglycerin/ Dextrose 250 ml @ 1.5 mls/hr TITRATE PRN IV 09/10/17 08:45 09/12/17 19:48 (NS Flush) 2 ml BID IV FLUSH 09/10/17 09:00 09/14/17 08:35 (Zofran Inj) 4 mg Q6H PRN IV PUSH 09/10/17 17:30 09/16/17 04:43 (Imodium) 2 mg Q6H PRN PO 09/11/17 15:15 09/15/17 20:44 (NS Flush) 2 ml BID IV FLUSH 09/14/17 21:00 09/15/17 08:16 (NS Flush) 2 ml UNSCH PRN IV FLUSH 09/14/17 17:00 Papaverine HCl 60 mg/Nitroglycerin 100 mcg/Diltiazem HCl 100 mg/Sodium Chloride 100 ml @ 0 mls/hr [employer] IRRIGATION 09/14/17 17:00 09/21/17 16:59 Cefazolin Sodium 500 mg/Sodium Chloride 505 ml @ 0 mls/hr [employer] IRRIGATION 09/14/17 17:00 09/21/17 16:59 Cefazolin Sodium/ Dextrose 50 ml @ 150 mls/hr F[employer] HELPER IV 09/14/17 17:00 09/21/17 16:59 (Lopressor) 12.5 mg FERRYBOAT HELPER PO 09/14/17 17:00 09/21/17 16:59 (Bactroban Nasal 2% Oint) 1 applic BID EACH NARE 09/14/17 21:00 09/19/17 20:59 09/15/17 20:44 (Hibiclens 4% Top Soln) 1 applic [employer] TOPICAL 09/14/17 17:00 09/21/17 16:59 Insulin Human Regular 100 units/ Sodium Chloride 100 ml @ 3 mls/hr TITRATE PRN IV 09/14/17 17:00 09/21/17 16:59 (D50w (Vial) Inj) 50 ml UNSCH PRN IV PUSH 09/14/17 17:00 (Pill Splitter) 1 ea UNSCH PRN OTHER 09/14/17 17:00 Ciprofloxacin/ Dextrose 200 ml @ 200 mls/hr Q12H IV 09/16/17 10:00 Vital Signs / I&O Vital Signs Date Time Temp Pulse Resp B/P (MAP) Pulse Ox O2 Delivery O2 Flow Rate FiO2 09/16/17 06:26 63 09/16/17 05:06 61 09/16/17 04:04 58 09/16/17 03:52 60 09/16/17 03:10 98.4 64 18 139/65 (89) 97 09/16/17 02:04 63 09/16/17 01:22 62 09/16/17 00:44 59 09/15/17 23:35 98.6 66 17 125/58 (80) 96 09/15/17 23:04 61 09/15/17 22:04 70 09/15/17 21:42 66 09/15/17 21:24 98 21 09/15/17 20:20 64 09/15/17 19:20 97.8 64 17 137/57 (83) 98 09/15/17 19:02 63 09/15/17 18:00 68 09/15/17 17:24 98 21 09/15/17 17:00 68 09/15/17 16:00 62 09/15/17 15:00 97.6 64 19 103/56 (72) 98 09/15/17 15:00 63 09/15/17 14:00 64 09/15/17 13:00 62 09/15/17 12:00 66 09/15/17 12:00 18 09/15/17 11:00 76 20 116/56 (76) 96 09/15/17 11:00 93 09/15/17 10:00 64 I/O 09/15/17 09/15/17 09/15/17 09/16/17 09/16/17 09/16/17 07:00 15:00 23:00 07:00 15:00 23:00 Intake Total 716 ml 100 ml 480 ml 600 ml Output Total 600 ml 1300 ml Balance 716 ml 100 ml -120 ml -700 ml Intake Oral 716 ml 480 ml 600 ml IV Total 100 ml Output Urine Total 600 ml 1300 ml # Voids 2 3 # Bowel Movements 3 1 Physical Exam GENERAL: Thin WF No acute distress. HEENT: Jugular venous pressure is normal. CHEST: Lungs clear to auscultation bilaterally. Unlabored respiratory effort. CARDIAC: Regular rate and rhythm without S3, S4, or murmur. ABDOMEN: Soft, nontender, no hepatosplenomegaly. Bowel sounds present. EXTREMITIES: No clubbing, cyanosis, or edema. Laboratory Laboratory Tests Test 09/15/17 16:45 09/16/17 04:30 Urine Color YELLOW Urine Turbidity HAZY Urine pH 5.5 Urine Specific [place] 1.009 Urine Protein NEG mg/dL Urine Glucose (UA) NEG mg/dL Urine Ketones NEG mg/dL Urine Occult Blood NEG Urine Nitrite NEG Urine Bilirubin NEG Urine Urobilinogen LESS THAN 2.0 MG/DL Urine Leukocyte Esterase LARGE Urine RBC 1 /hpf Urine WBC 87 /hpf Urine WBC Clumps OCC Urine Squamous Epithelial Cells <1 /hpf Urine Renal Epithelial Cells <1 /hpf Urine Bacteria FEW /hpf Microscopic Urinalysis Comment CULTURE INDICATED Triglycerides Level 195 MG/DL Cholesterol Level 187 MG/DL LDL Cholesterol 108 MG/DL HDL Cholesterol 40.5 MG/DL Cholesterol/HDL Ratio 4.61 RATIO Assessment and Plan Problem List: (1) CAD (coronary artery disease) ICD Codes: I25.10 - CAD (coronary artery disease) Status: Acute (2) HTN (hypertension) ICD Codes: I10 - Essential (primary) hypertension Status: Chronic (3) Ischemic cardiomyopathy ICD Codes: I25.5 - Ischemic cardiomyopathy Status: Acute Assessment and Plan Answered multiple questions. CABG tomorrow Manoj Chery MD Sep 16, 2017 09:21
[2017-09-16] MEDS: RANOLAZINE 500 MG EXTENDED RELEASE TAB PO SCH ×2 (09:26→20:45)
[2017-09-16] MEDS ORDERED: PILL SPLITTER OTHER PRN (10:00)
--- NOTE | 2017-09-16 10:13 | HHI.PR ---
Subjective Remarks The pt complained of some nausea. She believes it was secondary to start her head last night. She also endorsed chest pain every once in a while. She was very anxious about her surgery tomorrow. Discussed with nursing at the bedside. Objective Vitals Vital Signs Date Time Temp Pulse Resp B/P (MAP) Pulse Ox O2 Delivery O2 Flow Rate FiO2 09/16/17 09:51 64 09/16/17 08:15 56 09/16/17 08:15 98.6 68 18 139/66 (90) 98 09/16/17 06:26 63 09/16/17 05:06 61 09/16/17 04:04 58 09/16/17 03:52 60 09/16/17 03:10 98.4 64 18 139/65 (89) 97 09/16/17 02:04 63 09/16/17 01:22 62 09/16/17 00:44 59 09/15/17 23:35 98.6 66 17 125/58 (80) 96 09/15/17 23:04 61 09/15/17 22:04 70 09/15/17 21:42 66 09/15/17 21:24 98 21 09/15/17 20:20 64 09/15/17 19:20 97.8 64 17 137/57 (83) 98 09/15/17 19:02 63 09/15/17 18:00 68 09/15/17 17:24 98 21 09/15/17 17:00 68 09/15/17 16:00 62 09/15/17 15:00 97.6 64 19 103/56 (72) 98 09/15/17 15:00 63 09/15/17 14:00 64 09/15/17 13:00 62 09/15/17 12:00 66 09/15/17 12:00 18 09/15/17 11:00 76 20 116/56 (76) 96 09/15/17 11:00 93 I/O 09/15/17 09/15/17 09/15/17 09/16/17 09/16/17 09/16/17 07:00 15:00 23:00 07:00 15:00 23:00 Intake Total 716 ml 100 ml 480 ml 600 ml Output Total 600 ml 1300 ml Balance 716 ml 100 ml -120 ml -700 ml Intake Oral 716 ml 480 ml 600 ml IV Total 100 ml Output Urine Total 600 ml 1300 ml # Voids 2 3 # Bowel Movements 3 1 Result Diagram: 09/14/17 1055 09/14/17 1055 Imaging Last Impressions Chest X-Ray 09/14/17 0000 Signed Impressions: Service Date/Time: Thursday, September 14, 2017 09:37 - CONCLUSION: 1. Stable bibasilar atelectasis/scarring. 2. No acute abnormality or significant interval change. Maulik Fischer MD Lower Extremity Ultrasound 09/10/17 0000 Signed Impressions: Service Date/Time: September 17:08 - CONCLUSION: 1. Lower extremity venous mapping, as above. Maulik Fischer MD Chest CT 09/10/17 0000 Signed Impressions: Service Date/Time: Monday, September 11, 2017 20:12 - CONCLUSION: No focal infiltrates seen. Mild linear scarring in both lung bases. Abundio Mccoy MD Carotid Artery Ultrasound 09/08/17 0000 Signed Impressions: Service Date/Time: Friday, September 08, 2017 22:00 - CONCLUSION: Mild plaque formation in the carotid bulb bilaterally with hemodynamic parameters characteristic of less than 50%% stenosis. Abundio Mccoy MD Objective Remarks GENERAL: Anxious. SKIN: port in place - right chest wall. PULMONARY: CTAB. No W/R/R. CARDIAC: regular rhythm. GI: abdomen soft, nontender. EXTREMITIES: no edema. NEURO: non focal, alert and oriented. PSYCH: Slightly anxious. Procedures Cardiac catheterization Medications and IVs Current Medications Medications (Trade) Dose Ordered Sig/Tata Route Start Time Stop Time Status Last Admin (NS Flush) 2 ml UNSCH PRN IV FLUSH 09/08/17 20:00 (NS Flush) 2 ml BID IV FLUSH 09/08/17 21:00 09/16/17 09:12 (Tylenol) 650 mg Q4H PRN PO 09/08/17 20:00 09/13/17 04:09 (Compazine Supp) 25 mg Q12H PRN RECTAL 09/08/17 20:00 09/10/17 20:25 (Narcan Inj) 0.4 mg UNSCH PRN IV PUSH 09/08/17 20:00 (Lasix) 20 mg DAILY PRN PO 09/08/17 20:15 (Imdur) 60 mg BID PO 09/08/17 21:00 09/16/17 09:11 (Toprol Xl) 50 mg DAILY PO 09/09/17 09:00 09/16/17 09:11 (Protonix) 20 mg DAILY PO 09/09/17 09:00 09/16/17 09:11 (Ranexa) 1,000 mg BID PO 09/08/17 21:00 09/16/17 09:26 (Heparin Inj) 5,000 units Q12HR SQ 09/09/17 09:00 Future Hold 09/16/17 09:12 (Nitrostat Sl) 0.4 mg Q5M PRN SL 09/08/17 21:45 09/12/17 18:11 (Ecotrin Ec) 162 mg DAILY PO 09/09/17 10:15 09/16/17 09:11 (Morphine Inj) 2 mg Q3H PRN IV PUSH 09/09/17 10:30 09/16/17 06:13 (Prinivil) 5 mg DAILY PO 09/10/17 09:00 Future Hold 09/14/17 08:34 (Vistaril) 25 mg Q6HR PRN PO 09/10/17 12:00 09/13/17 22:12 Nitroglycerin/ Dextrose 250 ml @ 1.5 mls/hr TITRATE PRN IV 09/10/17 08:45 09/12/17 19:48 (NS Flush) 2 ml BID IV FLUSH 09/10/17 09:00 09/14/17 08:35 (Zofran Inj) 4 mg Q6H PRN IV PUSH 09/10/17 17:30 09/16/17 04:43 (Imodium) 2 mg Q6H PRN PO 09/11/17 15:15 09/15/17 20:44 (NS Flush) 2 ml BID IV FLUSH 09/14/17 21:00 09/16/17 09:13 (NS Flush) 2 ml UNSCH PRN IV FLUSH 09/14/17 17:00 Papaverine HCl 60 mg/Nitroglycerin 100 mcg/Diltiazem HCl 100 mg/Sodium Chloride 100 ml @ 0 mls/hr [employer] 09/14/17 17:00 09/21/17 16:59 Cefazolin Sodium 500 mg/Sodium Chloride 505 ml @ 0 mls/hr [employer] 09/14/17 17:00 09/21/17 16:59 Cefazolin Sodium/ Dextrose 50 ml @ 150 mls/hr [employer] IV 09/14/17 17:00 09/21/17 16:59 (Lopressor) 12.5 mg BAND [employer]KER PO 09/14/17 17:00 09/21/17 16:59 (Bactroban Nasal 2% Oint) 1 applic BID EACH NARE 09/14/17 21:00 09/19/17 20:59 09/16/17 09:11 (Hibiclens 4% Top Soln) 1 applic [employer] TOPICAL 09/14/17 17:00 09/21/17 16:59 Insulin Human Regular 100 units/ Sodium Chloride 100 ml @ 3 mls/hr TITRATE PRN IV 09/14/17 17:00 09/21/17 16:59 (D50w (Vial) Inj) 50 ml UNSCH PRN IV PUSH 09/14/17 17:00 (Pill Splitter) 1 ea UNSCH PRN OTHER 09/14/17 17:00 Ciprofloxacin/ Dextrose 200 ml @ 200 mls/hr Q12H IV 09/16/17 10:00 (Xanax) 0.125 mg Q4H PRN PO 09/16/17 09:45 (Pill Splitter) 1 ea UNSCH PRN OTHER 09/16/17 10:00 A/P Problem List: (1) Chest pain ICD Code: R07.9 - Chest pain Status: Acute Assessment and Plan Severe CAD The patient has had bypass surgery in the past. Cardiology recommendations appreciated. Multivessel coronary disease noted on cath. Cardiomyopathy- EF30%- clinically not in failure. CTS consult appreciated. LDL elevated, but pt has documented allergy to statins. - plan for CABG tomorrow. - continue cardiac regimen- BB, ASA, statins, CALLIE, Ranexa, po nitrates. - check A1c. - encourage ambulation with physical therapy. - incentive spirometry. - ADAT. Added Boost. JULIO C on CKD stage 2 Nonoliguric. Creatinine improved. - follow BMP and avoid nephrotoxic agents. UTI UA indicative of infection. - continue IV ceftriaxone. - follow urine culture. Nausea The pt thinks s/t stuffing she ate. - antiemetics as needed. - check LFTs, lipase. Anxiety S/t anticipation of surgery. - trial of Xanax. DVT prophylaxis: heparin encourage out of bed Incentive spirometry Rene Ngo DO Sep 16, 2017 10:13
[2017-09-16] MEDS: CIPROFLOXACIN 400 MG PREMIX 200 ML IV SCH ×2 (10:19→20:46)
--- NOTE | 2017-09-16 14:24 | PD.CAR.PN ---
CVT Progress Note Subjective/Hospital Course: 76-year-old female with longstanding history of coronary artery disease. She has had a coronary artery bypass grafting approximately 17 years ago in [facility] in [place]. She has had multiple catheterization procedures since. She had stenting of the diagonal branch by Dr. Paul in 2011, stenting of the mid-circumflex artery which closed and then had to be reopened. Her last catheterization was in June of [address] Todd. Ejection fraction at that time was 40% and at the time the LAD had mid disease of 40% and some in- stent diagonal disease. The circumflex was diffusely diseased with a patent stent in the AV groove. She was felt to be treated medically at that point; however, she started having increasing chest pain for the last 10 days with sweating substernal left-sided chest discomfort with or without exertion. Troponins were negative but because of worsening chest pain she came to the emergency room to be admitted. She underwent cardiac catheterization by Dr. Chery which showed an ejection fraction of 25%, left main disease of 30, approximate LAD ostial 40, mid-distal LAD 60%, diagonal 80, the obtuse marginal 99, the RCA was totally occluded with [id number] collaterals. The IFR of the LAD was 0.87, the left circumflex was 0.98 and the OM was 0.98. We were consulted to evaluate for re-do coronary artery bypass grafting to the LAD, diagonal and RCA. PAST MEDICAL HISTORY: Hypertension, Hyperlipidemia, Statin intolerance, Previous iron deficiency anemia. Multiple bowl surgeries causing a component of the iron deficiency anemia, gastroparesis, Recurrent genital herpes. History of previous stomach cancer, Uterine cancer. PAST SURGICAL HISTORY: Hysterectomy, Last surgery was by Dr. Carcamo who did an exploratory lap with extensive lysis of adhesions, segmental colon resection , low pelvic anastomosis, segmental transverse colon resection, primary anastomosis October of 2016, History of colostomy status post Shaun resection , History of gastric resection 09/11 no chest pain last pm await PFT and CT chest results 09/14 had some chest pain over the weekend, now resolved, received some morphine last pm timing for surgery per Dr Broussard/ possible on low grade temp/ pt needs to be OOB, use IS recheck UA 09/15 no more fevers for surgery on 09/16 repeat ua noted , + leukoestrase , few bacteria ( contaminated) will change to cipro IV until culture returns for surgery in am Objective: GENERAL: A&O x 3 SKIN: Warm and dry. HEAD: Normocephalic. EYES: No scleral icterus. No injection or drainage. NECK: Supple, trachea midline. No JVD or lymphadenopathy. CARDIOVASCULAR: Regular rate and rhythm without murmurs, gallops, or rubs. RESPIRATORY: Breath sounds equal bilaterally. No accessory muscle use. GASTROINTESTINAL: Abdomen soft, non-tender, nondistended. MUSCULOSKELETAL: No cyanosis, or edema. BACK: Nontender without obvious deformity. No CVA tenderness. Vital Signs Date Time Temp Pulse Resp B/P (MAP) Pulse Ox O2 Delivery O2 Flow Rate FiO2 09/16/17 14:04 57 09/16/17 13:02 60 09/16/17 12:07 54 09/16/17 11:06 97.6 60 18 143/60 (87) 97 09/16/17 11:06 58 09/16/17 10:37 98 21 09/16/17 10:04 56 09/16/17 09:51 64 09/16/17 08:15 56 09/16/17 08:15 98.6 68 18 139/66 (90) 98 09/16/17 06:26 63 09/16/17 05:06 61 09/16/17 04:04 58 09/16/17 03:52 60 09/16/17 03:10 98.4 64 18 139/65 (89) 97 09/16/17 02:04 63 09/16/17 01:22 62 09/16/17 00:44 59 09/15/17 23:35 98.6 66 17 125/58 (80) 96 09/15/17 23:04 61 09/15/17 22:04 70 09/15/17 21:42 66 09/15/17 21:24 98 21 09/15/17 20:20 64 09/15/17 19:20 97.8 64 17 137/57 (83) 98 09/15/17 19:02 63 09/15/17 18:00 68 09/15/17 17:24 98 21 09/15/17 17:00 68 09/15/17 16:00 62 09/15/17 15:00 97.6 64 19 103/56 (72) 98 09/15/17 15:00 63 Labs: Laboratory Tests Test 09/16/17 04:30 Triglycerides Level 195 MG/DL (42-150) Cholesterol Level 187 MG/DL (120-200) LDL Cholesterol 108 MG/DL (0-99) HDL Cholesterol 40.5 MG/DL (40.0-60.0) Cholesterol/HDL Ratio 4.61 RATIO Result Diagram: 09/14/17 1055 09/14/17 1055 (1) CAD (coronary artery disease) Plan: for surgery on (2) HTN (hypertension) Plan: controlled (3) Ischemic cardiomyopathy Plan: EF 35% will need to be on tamiko after surgery Danette Jaffe Sep 16, 2017 14:24
[2017-09-16 15:27] LABS: ALBUMIN 3.1 GM/DL (3.4-5.0); ALT (GPT) 131 U/L (10-53); AST (GOT) 176 U/L (15-37); BICARBONATE 26.2 MEQ/L (21.0-32.0); BLOOD UREA NITROGEN 25 MG/DL (7-18); CALCIUM 8.5 MG/DL (8.5-10.1); CHLORIDE 102 MEQ/L (98-107); CREATININE 1.09 MG/DL (0.50-1.00); GLOMERULAR FILTRATION RATE 49 ML/MIN (>89); GLUCOSE,RANDOM 114 MG/DL (74-106); SODIUM (NA) 138 MEQ/L (136-145)
[2017-09-16 15:30] LABS: ALKALINE PHOSPHATASE 147 U/L (45-117); TOTAL BILIRUBIN ADULT 0.2 MG/DL (0.2-1.0); TOTAL PROTEIN 6.2 GM/DL (6.4-8.2)
[2017-09-16] MEDS: ALPRAZolam 0.25 MG TAB PO PRN (23:02)
[2017-09-17] VITALS (15 sets, daily range): BP systolic 122–152; BP diastolic 45–77; PULSE 53–88; RESP 10–20; TEMP 96.3–97.9; O2SAT 98–100
[2017-09-17] MEDS ORDERED: VANCOMYCIN HCL 1000 MG VIAL ONE ×2 (06:29→06:30)
[2017-09-17] MEDS ORDERED: ceFAZolin 2 GM PREMIX 50 ML ONE (06:29)
[2017-09-17] MEDS ORDERED: HEPARIN SODIUM - SQ 10,000 UNITS/ML VIAL ONE ×2 (06:29→06:33)
[2017-09-17] MEDS ORDERED: methylPREDNISolone SOD SUCC 125 MG/2 ML VIAL ONE (07:35)
[2017-09-17] MEDS: RANOLAZINE 500 MG EXTENDED RELEASE TAB PO SCH ×2 (09:00→20:25)
[2017-09-17] MEDS: MUPIROCIN 2% OINT 1 APPLIC/GM SYR EACH NARE SCH ×2 (09:00→20:23)
[2017-09-17] MEDS ORDERED: VANCOMYCIN INJ 1,000 MG in SODIUM CHLORIDE 0.9% IRR BTL 1,000 ML IRRIGATION ONE (11:00)
[2017-09-17] MEDS ORDERED: VECURONIUM BROMIDE 10 MG VIAL IV ONE (12:00)
[2017-09-17] MEDS ORDERED: DOPamine 800 MG/500 ML INJ 500 ML IV ONE (12:00)
[2017-09-17] MEDS ORDERED: MAGNESIUM SULFATE 1 GM/2 ML VIAL IV ONE (12:00)
[2017-09-17] MEDS ORDERED: SODIUM BICARBONATE 8.4% INJ 50 MEQ/50 ML SYR IV ONE (12:00)
[2017-09-17] MEDS ORDERED: AMINOCAPROIC ACID INJ 250 MG/ML 20 ML VIAL IV ONE (12:00)
[2017-09-17] MEDS ORDERED: SODIUM CHLOR 0.9% 250 ML INJ 500 ML IV ONE (12:00)
[2017-09-17] MEDS ORDERED: NORMOSOL R INJ 1,000 ML IV ONE (12:00)
[2017-09-17] MEDS ORDERED: NS 100 ML (PAB BAG) 200 ML IV ONE (12:00)
[2017-09-17] MEDS ORDERED: HEPARIN SODIUM - SQ 10,000 UNITS/ML VIAL OTHER ONE (12:00)
[2017-09-17] MEDS ORDERED: PHENYLEPH/NS 1000 MCG/10 ML SYR IV ONE (12:00)
[2017-09-17] MEDS ORDERED: PROTAMINE SULFATE 250 MG/25 ML VIAL IV ONE (12:00)
[2017-09-17] MEDS ORDERED: ePHEDrine/NS 25 MG/5 ML SYRINGE IV ONE (12:00)
[2017-09-17] MEDS ORDERED: DEXMEDETOMIDINE HCL 200 MCG/2 ML VIAL IV ONE (12:00)
[2017-09-17] MEDS ORDERED: LACTATED RINGER'S 1000 ML INJ 1,000 ML IV ONE (12:00)
[2017-09-17] MEDS ORDERED: NITROGLYCERIN 50 MG/DEXTROSE 5% SOLN 250 ML BTL IV ONE (12:00)
[2017-09-17] MEDS ORDERED: DOBUTamine PREMIX DRIP 250 ML IV PRN (12:43)
[2017-09-17] MEDS ORDERED: LACTATED RINGER'S 1000 ML INJ 500 ML IV PRN (12:43)
[2017-09-17] MEDS ORDERED: CALCIUM CHLORIDE INJ 1 GM in SODIUM CHLORIDE 0.9% INJ 100 ML IV PRN (12:45)
[2017-09-17] MEDS ORDERED: POTASSIUM CHLOR 20 MEQ PREMIX 100 ML IV PRN ×2 (12:45)
[2017-09-17] MEDS ORDERED: MAGNESIUM SULFATE INJ 2 GM in SODIUM CHLORIDE 0.9% INJ 100 ML IV PRN ×4 (12:45)
[2017-09-17] MEDS ORDERED: PHENYLEPHRINE INJ 40 MG in DEXTROSE 5% IN WATE 500 ML INJ 496 ML IV PRN ×2 (12:45)
[2017-09-17] MEDS ORDERED: DOPamine 800 MG/500 ML INJ 500 ML IV PRN (12:45)
[2017-09-17] MEDS ORDERED: POTASSIUM CHLORIDE 20 MEQ CONTROLLED RELEASE TAB PO PRN ×2 (12:45)
[2017-09-17] MEDS ORDERED: MEPERIDINE HCL 25 MG/ML VIAL IV PUSH PRN (12:45)
[2017-09-17] MEDS ORDERED: NITROGLYCERIN-D5W 50 MG/250 ML 250 ML IV PRN (12:45)
[2017-09-17] MEDS ORDERED: RESP: ALBUTEROL 2.5 MG/IPRATROPIUM 0.5 MG NEB (PRN) NEB (12:45)
[2017-09-17] MEDS ORDERED: ALBUMIN 5% INJ 250 ML IV PRN (12:45)
[2017-09-17] MEDS ORDERED: ONDANSETRON HCL 4 MG/2 ML VIAL IV PUSH PRN (12:45)
[2017-09-17] MEDS ORDERED: INSULIN REGULAR (IV INFUSION) 100 UNITS in SODIUM CHLORIDE 0.9% INJ 99 ML IV PRN (12:45)
[2017-09-17] MEDS ORDERED: ACETAMINOPHEN 325 MG TAB PO PRN (12:45)
[2017-09-17] MEDS ORDERED: DEXTROSE 50% IN WATER 50 ML VIAL(D50) IV PUSH PRN (12:45)
[2017-09-17] MEDS ORDERED: DEXMEDETOMIDINE INJ 200 MCG in SODIUM CHLORIDE 0.9% INJ 50 ML IV PRN (12:45)
[2017-09-17] MEDS ORDERED: SODIUM CHLORIDE 0.9% FLUSH 10 ML FLUSH IV FLUSH PRN (12:45)
[2017-09-17] MEDS ORDERED: METOPROLOL TARTRATE 5 MG/5 ML VIAL IV PUSH PRN (12:45)
[2017-09-17] MEDS ORDERED: ACETAMINOPHEN 650 MG SUPP RECTAL PRN (12:45)
[2017-09-17] MEDS ORDERED: CALCIUM CHLORIDE 10% 1 GRAM/10 ML VIAL IV PUSH PRN (12:45)
[2017-09-17] MEDS ORDERED: hydrALAZINE HCL 20 MG/ML VIAL IV PUSH PRN (12:45)
[2017-09-17] MEDS ORDERED: RESP: RACEPINEPHRINE 2.25% 0.5 ML NEB NEB PRN (12:45)
[2017-09-17] MEDS ORDERED: SODIUM BICARBONATE 8.4% SOLN 50 MEQ/50 ML VIAL IV PUSH PRN ×2 (12:45)
--- NOTE | 2017-09-17 12:56 | PD.OP ---
cc: Milena Broussard MD; Manoj Chery MD Operative Report Date of Surgery: Sep 17, 2017 Preoperative Diagnosis: Postoperative Diagnosis: Procedure: 1. Redo Off-pump Coronary Artery Bypass Grafting x 2 with Left Internal Mammary Artery (BUSTAMANTE) to the Left Anterior Descending (LAD), reverse saphenous vein graft to the Diagonal 1 (D1) 2. Myocardial Lysis of Adhesions 3. Left Leg Endoscopic Vein [place] 4. Intraoperative Vein Mapping Surgeon: Milena Broussard Dispensary Attendant(s): Deja Kelly Operation and Findings: PREPROCEDURE DIAGNOSES 1. Recurrent Two-Vessel Coronary Artery Disease. 2. Previous CABG 3.Severe Left Ventricular Dysfunction (EF 25%) POSTPROCEDURE DIAGNOSES Same SURGICAL PROCEDURE 1. Redo Off-pump Coronary Artery Bypass Grafting x 2 with Left Internal Mammary Artery (BUSTAMANTE) to the Left Anterior Descending (LAD), reverse saphenous vein graft to the Diagonal 1 (D1) 2. Myocardial Lysis of Adhesions 3. Left Leg Endoscopic Vein [place] 4. Intraoperative Vein Mapping SURGEON Milena Broussard MD MELANGEUR OPERATOR Thiago Kelly TRACK MANAGER ANESTHESIA General endotracheal DIRECTOR MANUFACTURING ENGINEERING LEISA Clarke MD PREPARATION ChloraPrep. COUNTS Needle, sponge, and instrument counts were correct. DRAINS Two 32-Croat[place] mediastinal tubes. COMPLICATIONS None. INDICATIONS FOR PROCEDURE The patient is a 76-year-old s/p CABG, presenting with chest pain and recurrent coronary artery disease. She is being brought to the operating room for redo surgical revascularization therapy. PROCEDURE Patient was brought to the operating room and placed supine on the OR table. Following the induction of adequate general endotracheal anesthesia and placement of appropriate monitoring devices, intraoperative vein mapping was performed which revealed suitable-caliber conduit in the both upper thighs. The patient was then prepped and draped in standard sterile fashion. Next, 2500 units of intravenous heparin was given. Left thigh greater saphenous veins were harvested endoscopically. This appeared to be a good-caliber conduit. Simultaneously, the previously healed median sternotomy incision was opened. The sternum was divided using an oscillating saw, with care being taken to avoid injury to the underlying myocardium. The heart was densely adherent to the sternum and was carefully freed circumferentially. Both pleurae were opened and the left internal mammary artery dissected free off the posterior sternal table. The patient was systemically heparinized and anticoagulation monitored by serial ACT measurements. The internal mammary artery had good pulsatile flow in it and was a decent-caliber conduit. The LAD and Diagonal vessels were dissected free and isolated for bypassing. No targets were identified in the RCA territory. At this point, all anastomoses were performed in a beating-heart fashion using the Maquet stabilizing system. The left internal mammary artery was anastomosed to the distal LAD (2 mm) in an end-to-side fashion using 7-0 Prolene. The next segment was anastomosed to the D1 (1.75 mm) in an end-to-side fashion using a running 7-0 Prolene. The proximal anastomosis was then constructed to the ascending aorta in a running manner using 6-0 Prolene. All anastomotic sites were inspected and appeared to be hemostatic and patent. Protamine solution was given. Strict hemostasis was assured. The closure was undertaken. 2 chest tubes were placed. The sternum was approximated using sternal wires. The muscular and fascial layer were then closed in 3 layers. The endoscopic vein harvest sites were closed in 2 layers. The patient tolerated the procedure well and was transferred to CVICU in stable condition. Milena Broussard MD Sep 17, 2017 12:56
[2017-09-17] MEDS ORDERED: Post-op Orders (for Pharmacy) OTHER ONE (13:19)
[2017-09-17] MEDS ORDERED: MIDAZOLAM HCL 2 MG/2 ML VIAL ONE (13:58)
[2017-09-17] MEDS ORDERED: fentaNYL CITRATE 250 MCG/5 ML AMP ONE (13:58)
--- NOTE | 2017-09-17 14:39 | RADRPT ---
EXAM DATE/TIME: 09/17/2017 13:49 [facility] COMPARISON: No previous studies available for comparison. INDICATIONS : Post CABG. MEDICAL HISTORY : Cardiovascular disease. SURGICAL HISTORY : Coronary artery stent. CABG. ENCOUNTER: Initial ACUITY: 1 week PAIN SCORE: Non-responsive. LOCATION: Bilateral chest FINDINGS: A single view of the chest demonstrates right [id number]-[id number] and left central line in superior vena ca va. Central and left sided anterior chest tubes. Endotracheal tube in good position. NG tip seen ente ring stomach. Side port in distal esophagus. Subsegmental atelectasis in the lungs. No pneumothorax o r significant effusion. CONCLUSION: 1. Support apparatus as above. Status post reported CABG. Cody Todd MD on September 17, 2017 at 14:34 Board Certified Radiologist. This report was verified electronically.
[2017-09-17] MEDS: ACETAMINOPHEN 1000 MG/100 ML 100 ML IV SCH ×2 (15:16→20:23)
[2017-09-17] MEDS: CLEVIDIPINE INJ 50 ML IV PRN ×2 (15:17→20:23)
[2017-09-17] MEDS: KETOROLAC TROMETHAMINE 30 MG/ML (IVP) VIAL IV PUSH PRN (15:37)
[2017-09-17] MEDS: POTASSIUM CHLOR 20 MEQ PREMIX 100 ML IV PRN ×2 (15:41→15:46)
[2017-09-17] MEDS: RESP: ALBUTEROL 2.5 MG/IPRATROPIUM 0.5 MG NEB (SCH) NEB ×2 (16:10→20:52)
--- NOTE | 2017-09-17 16:59 | HHI.PR ---
Subjective Remarks The pt was still intubated. She wanted the tube removed. She felt better after getting suctioned. Discussed with nursing at the bedside. Objective Vitals Vital Signs Date Time Temp Pulse Resp B/P (MAP) Pulse Ox O2 Delivery O2 Flow Rate FiO2 09/17/17 16:11 99 40 09/17/17 15:46 18 09/17/17 15:17 61 155/60 09/17/17 15:00 53 09/17/17 15:00 97.5 53 18 122/45 (70) 99 Automatic Cuff 09/17/17 15:00 99 40 09/17/17 15:00 40 09/17/17 14:45 98 50 09/17/17 13:25 98 Mechanical Ventilator 50 09/17/17 13:25 76 09/17/17 13:25 96.3 76 10 122/52 (75) 98 Automatic Cuff 09/17/17 13:25 50 09/17/17 13:25 99 50 09/17/17 06:28 88 09/17/17 06:02 97.9 67 16 126/77 (93) 98 09/17/17 05:10 60 09/17/17 04:53 66 09/17/17 03:05 59 09/17/17 02:26 57 09/17/17 01:06 54 09/17/17 00:01 60 09/16/17 23:35 56 09/16/17 23:01 98.4 65 18 171/79 (109) 98 09/16/17 22:30 56 09/16/17 21:00 62 09/16/17 20:15 60 09/16/17 19:25 97.7 69 16 161/79 (106) 97 139/62 (87) 09/16/17 19:04 57 09/16/17 18:05 57 09/16/17 17:00 57 I/O 09/16/17 09/16/17 09/16/17 09/17/17 09/17/17 09/17/17 07:00 15:00 23:00 07:00 15:00 23:00 Intake Total 600 ml 680 ml 480 ml 3680 ml 300 ml Output Total 1300 ml 800 ml 1300 ml 1600 ml Balance -700 ml -120 ml -820 ml 2080 ml 300 ml Intake Oral 600 ml 480 ml 480 ml IV Total 200 ml 300 ml Autotransfusion 480 ml Other 3200 ml Output Urine Total 1300 ml 800 ml 1300 ml 600 ml Estimated Blood Loss 1000 ml # Bowel Movements 0 Result Diagram: 09/14/17 1055 09/16/17 0430 Imaging Last Impressions Chest X-Ray 09/17/17 0000 Signed Impressions: Service Date/Time: September 13:49 - CONCLUSION: 1. Support apparatus as above. Status post reported CABG. Cody Todd MD Lower Extremity Ultrasound 09/10/17 0000 Signed Impressions: Service Date/Time: September 17:08 - CONCLUSION: 1. Lower extremity venous mapping, as above. Maulik Fischer MD Chest CT 09/10/17 0000 Signed Impressions: Service Date/Time: Monday, September 11, 2017 20:12 - CONCLUSION: No focal infiltrates seen. Mild linear scarring in both lung bases. Abundio Mccoy MD Carotid Artery Ultrasound 09/08/17 0000 Signed Impressions: Service Date/Time: Friday, September 08, 2017 22:00 - CONCLUSION: Mild plaque formation in the carotid bulb bilaterally with hemodynamic parameters characteristic of less than 50%% stenosis. Abundio Mccoy MD Objective Remarks GENERAL: Intubated. SKIN: port in place - right chest wall. Bandage in place in center of chest. PULMONARY: On ventilator. CARDIAC: regular rhythm. GI: abdomen soft, nontender. EXTREMITIES: no edema. NEURO: awake and alert. Trying to take tube out. Procedures Cardiac catheterization Medications and IVs Current Medications Medications (Trade) Dose Ordered Sig/Tata Route Start Time Stop Time Status Last Admin (Compazine Supp) 25 mg Q12H PRN RECTAL 09/08/17 20:00 09/10/17 20:25 (Narcan Inj) 0.4 mg UNSCH PRN IV PUSH 09/08/17 20:00 (Ranexa) 1,000 mg BID PO 09/08/17 21:00 09/16/17 20:45 (Nitrostat Sl) 0.4 mg Q5M PRN SL 09/08/17 21:45 09/12/17 18:11 (Vistaril) 25 mg Q6HR PRN PO 09/10/17 12:00 09/13/17 22:12 (Imodium) 2 mg Q6H PRN PO 09/11/17 15:15 09/15/17 20:44 Cefazolin Sodium/ Dextrose 50 ml @ 150 mls/hr VEHICLE DELIVERY WORKER IV 09/14/17 17:00 09/21/17 16:59 (Bactroban Nasal 2% Oint) 1 applic BID EACH NARE 09/14/17 21:00 09/19/17 20:59 09/16/17 20:46 (Xanax) 0.125 mg Q4H PRN PO 09/16/17 09:45 09/16/17 23:02 (Pill Splitter) 1 ea UNSCH PRN OTHER 09/16/17 10:00 (NS Flush) 2 ml BID IV FLUSH 09/17/17 21:00 (NS Flush) 2 ml UNSCH PRN IV FLUSH 09/17/17 12:45 Dexmedetomidine HCl 200 mcg/ Sodium Chloride 52 ml @ 3.22 mls/hr TITRATE PRN IV 09/17/17 12:45 Nitroglycerin/ Dextrose 250 ml @ 1.5 mls/hr TITRATE PRN IV 09/17/17 12:45 Dobutamine HCl/ Dextrose 250 ml @ 9.3 mls/hr Q24H PRN IV 09/17/17 12:43 Dopamine HCl/ Dextrose 500 ml @ 6.975 mls/ hr TITRATE PRN IV 09/17/17 12:45 Phenylephrine HCl 40 mg/Dextrose 500 ml @ 30 mls/hr TITRATE PRN IV 09/17/17 12:45 Clevidipine 50 ml @ 2 mls/hr TITRATE PRN IV 09/17/17 12:45 09/17/17 15:17 Albumin Human 250 ml @ 250 mls/hr UNSCH PRN IV 09/17/17 12:45 Lactated Ringer's 500 ml @ 500 mls/hr Q1H PRN IV 09/17/17 12:43 Vancomycin HCl 1000 mg/Sodium Chloride 250 ml @ 250 mls/hr Q12H IV 09/17/17 21:00 09/18/17 21:59 (Aspirin Chew) 81 mg DAILY PO 09/18/17 09:00 (Plavix) 75 mg DAILY PO 09/18/17 09:00 (Protonix) 40 mg DAILY@06 PO 09/18/17 06:00 (Tylenol) 650 mg Q4H PRN PO 09/17/17 12:45 (Tylenol Supp) 650 mg Q4H PRN RECTAL 09/17/17 12:45 Acetaminophen 100 ml @ 400 mls/hr Q6H IV 09/17/17 15:00 09/18/17 09:14 09/17/17 15:16 (Morphine Inj) 1 mg Q10M PRN IV PUSH 09/17/17 12:45 (Demerol Inj) 12.5 mg Q4H PRN IV PUSH 09/17/17 12:45 (Gardena 5-325 Mg) 1 tab Q3H PRN PO 09/17/17 12:45 (Toradol Inj) 15 mg Q6H PRN IV PUSH 09/17/17 12:45 09/19/17 12:44 09/17/17 15:37 (fentaNYL INJ) 25 mcg Q1H PRN IV PUSH 09/17/17 12:45 (Apresoline Inj) 10 mg Q4H PRN IV PUSH 09/17/17 12:45 (Lopressor Inj) 2.5 mg Q1H PRN IV PUSH 09/17/17 12:45 Potassium Chloride 100 ml @ 50 mls/hr UNSCH PRN IV 09/17/17 12:45 Potassium Chloride 100 ml @ 50 mls/hr UNSCH PRN IV 09/17/17 12:45 Potassium Chloride 100 ml @ 50 mls/hr UNSCH PRN IV 09/17/17 12:45 09/17/17 15:46 (KCl) 20 meq UNSCH PRN PO 09/17/17 12:45 (KCl) 40 meq UNSCH PRN PO 09/17/17 12:45 Magnesium Sulfate 2 gm/Sodium Chloride 104 ml @ 100 mls/hr UNSCH PRN IV 09/17/17 12:45 Magnesium Sulfate 2 gm/Sodium Chloride 104 ml @ 50 mls/hr UNSCH PRN IV 09/17/17 12:45 Calcium Chloride 1 gm/Sodium Chloride 110 ml @ 100 mls/hr UNSCH PRN IV 09/17/17 12:45 09/17/17 15:15 (Calcium Chloride Inj) 0.5 gm UNSCH PRN IV PUSH 09/17/17 12:45 Insulin Human Regular 100 units/ Sodium Chloride 100 ml @ 3 mls/hr TITRATE PRN IV 09/17/17 12:45 09/17/17 13:25 (D50w (Vial) Inj) 50 ml UNSCH PRN IV PUSH 09/17/17 12:45 (Sodium Bicarbonate 8.4% Inj) 50 meq UNSCH PRN IV PUSH 09/17/17 12:45 (Sodium Bicarbonate 8.4% Inj) 100 meq UNSCH PRN IV PUSH 09/17/17 12:45 (Duoneb Neb) 1 ampule Q6HR NEB NEB 09/17/17 16:00 09/17/17 16:10 (Duoneb Neb) 1 ampule Q2HR NEB PRN NEB 09/17/17 12:45 (Racepinephrine 2.25% Neb) 0.5 ml UNSCH X1 PRN NEB 09/17/17 12:45 09/18/17 12:44 A/P Problem List: (1) Chest pain ICD Code: R07.9 - Chest pain Status: Acute Assessment and Plan Severe CAD The patient has had bypass surgery in the past. Cardiology recommendations appreciated. Multivessel coronary disease noted on cath. Cardiomyopathy- EF30%- clinically not in failure. CTS consult appreciated. LDL elevated, but pt has documented allergy to statins. A1c 6%. S/p CABG 09/17. - continue cardiac regimen- BB, ASA, statins, CALLIE, Ranexa, po nitrates. - encourage ambulation with physical therapy. - incentive spirometry. - telemetry. - management per CTS. Acute respiratory failure On vent following surgery. - management per CTS. JULIO C on CKD stage 2 Nonoliguric. Creatinine improved. - follow BMP and avoid nephrotoxic agents. UTI UA indicative of infection. Cultures negative. - antibiotics per surgery. Elevated LFTs Unsure of etiology. - continue to trend. - liver US if no improvement. DVT prophylaxis: heparin Rene Ngo DO Sep 17, 2017 16:59
[2017-09-17] MEDS: SODIUM CHLORIDE 0.9% FLUSH 10 ML FLUSH IV FLUSH SCH (20:24)
[2017-09-17] MEDS: VANCOMYCIN INJ 1,000 MG in SODIUM CHLOR 0.9% 250 ML INJ 250 ML IV SCH (20:24)
[2017-09-17] MEDS: MORPHINE SULFATE 2 MG/ML INJ IV PUSH PRN ×2 (20:25→21:08)
[2017-09-18] VITALS (12 sets, daily range): BP systolic 96–138; BP diastolic 22–82; PULSE 65–98; RESP 18–22; TEMP 97.9–99.5; O2SAT 92–99
[2017-09-18] MEDS: KETOROLAC TROMETHAMINE 30 MG/ML (IVP) VIAL IV PUSH PRN ×3 (01:16→18:11)
[2017-09-18] MEDS: ACETAMINOPHEN 1000 MG/100 ML 100 ML IV SCH ×2 (03:23→09:34)
[2017-09-18] MEDS: RESP: ALBUTEROL 2.5 MG/IPRATROPIUM 0.5 MG NEB (SCH) NEB ×2 (04:16→14:38)
--- NOTE | 2017-09-18 05:08 | RADRPT ---
EXAM DATE/TIME: 09/18/2017 04:23 [facility] COMPARISON: CHEST SINGLE AP, September 17, 2017, 13:49. INDICATIONS : Status post CABG. MEDICAL HISTORY : Congestive heart failure. Hypertension. Myocardial infarction.Cardiovascular disease SURGICAL HISTORY : CABG. Coronary artery stent. ENCOUNTER: Subsequent ACUITY: 1 week PAIN SCORE: Non-responsive. LOCATION: Bilateral chest FINDINGS: A single view of the chest demonstrates developing left basilar atelectasis. Left-sided thoracostomy tube is in good position as is the right IJ [id number] catheter and left subclavian central venous catheter. No pneumothorax. Endotracheal and nasogastric tubes have been removed. Mediastinal drain i s stable in position. Heart size is upper limits of normal. Osseous structures are intact. CONCLUSION: 1. Developing atelectatic changes of the left hemidiaphragm. 2. Interval removal of the endotracheal and nasogastric tubes. Jelani Gloria MD on September 18, 2017 at 5:05 Board Certified Radiologist. This report was verified electronically.
[2017-09-18] MEDS: PANTOPRAZOLE SOD 40 MG DELAYED RELEASE TAB PO SCH (05:13)
[2017-09-18] MEDS: MORPHINE SULFATE 2 MG/ML INJ IV PUSH PRN ×2 (05:14→06:24)
[2017-09-18 05:24] LABS: HEMATOCRIT 25.3 % (35.0-46.0); HEMOGLOBIN 8.6 GM/DL (11.6-15.3); MEAN CELL VOLUME 89.6 FL (80.0-100.0); MEAN CORPUSCULAR HEMOGLOBIN 30.4 PG (27.0-34.0); MEAN CORPUSCULAR HGB CONC 33.9 % (32.0-36.0); MEAN PLATELET VOLUME 9.6 FL (7.0-11.0); PLATELET COUNT 91 TH/MM3 (150-450); RED BLOOD COUNT 2.82 MIL/MM3 (4.00-5.30); RED CELL DISTRIBUTION WIDTH 16.8 % (11.6-17.2); WHITE BLOOD COUNT 6.6 TH/MM3 (4.0-11.0)
[2017-09-18 05:43] LABS: ALBUMIN 2.4 GM/DL (3.4-5.0); BICARBONATE 25.2 MEQ/L (21.0-32.0); CALCIUM 7.5 MG/DL (8.5-10.1); CREATININE 0.66 MG/DL (0.50-1.00); DIRECT BILIRUBIN ADULT 0.1 MG/DL (0.0-0.2); INDIRECT BILIRUBIN 0.3 MG/DL (0.0-0.8); MAGNESIUM 1.9 MG/DL (1.5-2.5); TOTAL BILIRUBIN ADULT 0.4 MG/DL (0.2-1.0); TOTAL PROTEIN 4.6 GM/DL (6.4-8.2)
[2017-09-18] MEDS ORDERED: SOD PHOSPHATE/SOD BIPHOSPHATE (ADULT) ENEMA 133ML RECTAL PRN (08:45)
[2017-09-18] MEDS ORDERED: GLUCAGON 1 MG/ML VIAL OTHER PRN (08:45)
[2017-09-18] MEDS ORDERED: DEXTROSE 50% IN WATER 50 ML VIAL(D50) IV PUSH PRN (08:45)
[2017-09-18] MEDS ORDERED: BISACODYL 10 MG SUPP RECTAL PRN (08:45)
[2017-09-18] MEDS: ASPIRIN 81 MG CHEW TAB PO SCH (09:00)
[2017-09-18] MEDS: CLOPIDOGREL 75 MG TAB PO SCH (09:00)
[2017-09-18] MEDS: MULTIVITAMINS/MINERALS THERAPEUTIC TAB PO SCH (09:00)
[2017-09-18] MEDS ORDERED: ONDANSETRON HCL 4 MG/2 ML VIAL ONE (09:23)
[2017-09-18] MEDS: SODIUM CHLORIDE 0.9% FLUSH 10 ML FLUSH IV FLUSH SCH ×2 (09:31→22:57)
[2017-09-18] MEDS: MUPIROCIN 2% OINT 1 APPLIC/GM SYR EACH NARE SCH ×2 (09:31→21:00)
[2017-09-18] MEDS: MAGNESIUM HYDROXIDE SUSP 30 ML CUP PO SCH (09:31)
[2017-09-18] MEDS: VANCOMYCIN INJ 1,000 MG in SODIUM CHLOR 0.9% 250 ML INJ 250 ML IV SCH ×2 (09:32→22:55)
[2017-09-18] MEDS: INSULIN ASPART SUPPLEMENTAL SCALE SQ SCH ×3 (10:00→22:00)
--- NOTE | 2017-09-18 10:27 | HHI.PR ---
Subjective Remarks The patient was complaining of nausea and dry heaving. She said that she had some pain from surgery. She was able to eat some breakfast. Discussed with nursing at the bedside. Objective Vitals Vital Signs Date Time Temp Pulse Resp B/P (MAP) Pulse Ox O2 Delivery O2 Flow Rate FiO2 09/18/17 07:00 96 Nasal Cannula 2.00 09/18/17 07:00 74 09/18/17 07:00 98.3 74 22 135/82 (99) 93 138/60 (86) 09/18/17 04:00 70 09/18/17 04:00 99 Nasal Cannula 2.00 09/18/17 04:00 98.2 69 18 108/51 (70) 99 106/25 (52) 09/18/17 00:00 97.9 65 18 96/22 (46) 99 103/46 (65) 09/18/17 00:00 65 09/18/17 00:00 99 Nasal Cannula 2.00 09/17/17 23:00 71 103/44 09/17/17 22:00 99 Nasal Cannula 2.00 09/17/17 21:13 18 09/17/17 21:00 100 Nasal Cannula 3.00 09/17/17 20:54 100 Nasal Cannula 5.00 09/17/17 20:23 66 144/58 09/17/17 20:00 99 Nasal Cannula 4.00 09/17/17 20:00 66 09/17/17 20:00 97.0 66 20 152/56 (88) 99 09/17/17 18:00 62 148/53 09/17/17 17:41 98 Nasal Cannula 5 09/17/17 16:37 18 09/17/17 16:11 99 40 09/17/17 15:46 18 09/17/17 15:17 61 155/60 09/17/17 15:00 53 09/17/17 15:00 97.5 53 18 122/45 (70) 99 Automatic Cuff 09/17/17 15:00 99 40 09/17/17 15:00 40 09/17/17 14:45 98 50 09/17/17 13:25 98 Mechanical Ventilator 50 09/17/17 13:25 76 09/17/17 13:25 96.3 76 10 122/52 (75) 98 Automatic Cuff 09/17/17 13:25 50 09/17/17 13:25 99 50 I/O 09/17/17 09/17/17 09/17/17 09/18/17 09/18/17 09/18/17 07:00 15:00 23:00 07:00 15:00 23:00 Intake Total 480 ml 3691 ml 1644 ml 1200 ml Output Total 1300 ml 1600 ml 335 ml 525 ml Balance -820 ml 2091 ml 1309 ml 675 ml Intake Oral 480 ml 100 ml IV Total 11 ml 844 ml 1100 ml Autotransfusion 480 ml Other 3200 ml 800 ml Output Urine Total 1300 ml 600 ml 250 ml 435 ml Gastric Drainage Total 0 ml Chest Tube Drainage Total 85 ml 90 ml Estimated Blood Loss 1000 ml # Bowel Movements 0 Result Diagram: 09/18/17 0440 09/18/17 0440 Imaging Last Impressions Chest X-Ray 09/18/17 0500 Signed Impressions: Service Date/Time: Monday, September 18, 2017 04:23 - CONCLUSION: 1. Developing atelectatic changes of the left hemidiaphragm. 2. Interval removal of the endotracheal and nasogastric tubes. Jelani Gloria MD Lower Extremity Ultrasound 09/10/17 0000 Signed Impressions: Service Date/Time: September 17:08 - CONCLUSION: 1. Lower extremity venous mapping, as above. Maulik Fischer MD Chest CT 09/10/17 0000 Signed Impressions: Service Date/Time: Monday, September 11, 2017 20:12 - CONCLUSION: No focal infiltrates seen. Mild linear scarring in both lung bases. Abundio Mccoy MD Carotid Artery Ultrasound 09/08/17 0000 Signed Impressions: Service Date/Time: Friday, September 08, 2017 22:00 - CONCLUSION: Mild plaque formation in the carotid bulb bilaterally with hemodynamic parameters characteristic of less than 50%% stenosis. Abundio Mccoy MD Objective Remarks GENERAL: Resting comfortably in bed. SKIN: Port in place - right chest wall. Bandage in place in center of chest. PULMONARY: CTAB. CARDIAC: Regular rate and rhythm. GI: Abdomen soft, nontender. EXTREMITIES: No edema. NEURO: Awake and alert. PSYCH: Mood and affect appropriate. Procedures Cardiac catheterization Medications and IVs Current Medications Medications (Trade) Dose Ordered Sig/Tata Route Start Time Stop Time Status Last Admin (Compazine Supp) 25 mg Q12H PRN RECTAL 09/08/17 20:00 09/10/17 20:25 (Narcan Inj) 0.4 mg UNSCH PRN IV PUSH 09/08/17 20:00 (Imodium) 2 mg Q6H PRN PO 09/11/17 15:15 09/15/17 20:44 (Bactroban Nasal 2% Oint) 1 applic BID EACH NARE 09/14/17 21:00 09/19/17 20:59 09/18/17 09:31 (Xanax) 0.125 mg Q4H PRN PO 09/16/17 09:45 09/16/17 23:02 (Pill Splitter) 1 ea UNSCH PRN OTHER 09/16/17 10:00 (NS Flush) 2 ml BID IV FLUSH 09/17/17 21:00 09/18/17 09:31 (NS Flush) 2 ml UNSCH PRN IV FLUSH 09/17/17 12:45 Vancomycin HCl 1000 mg/Sodium Chloride 250 ml @ 250 mls/hr Q12H IV 09/17/17 21:00 09/18/17 21:59 09/18/17 09:32 (Aspirin Chew) 81 mg DAILY PO 09/18/17 09:00 (Plavix) 75 mg DAILY PO 09/18/17 09:00 (Protonix) 40 mg DAILY@06 PO 09/18/17 06:00 09/18/17 05:13 (Tylenol) 650 mg Q4H PRN PO 09/17/17 12:45 (Lithia 5-325 Mg) 1 tab Q3H PRN PO 09/17/17 12:45 (Toradol Inj) 15 mg Q6H PRN IV PUSH 09/17/17 12:45 09/19/17 12:44 09/18/17 01:16 (fentaNYL INJ) 25 mcg Q1H PRN IV PUSH 09/17/17 12:45 (Duoneb Neb) 1 ampule Q2HR NEB PRN NEB 09/17/17 12:45 (Duoneb Neb) 1 ampule Q6HR WHILE AWAKE NEB NEB 09/18/17 14:00 09/20/17 13:59 (Colace) 100 mg BID PO 09/18/17 21:00 (Theragran M Tab) 1 tab DAILY PO 09/18/17 09:00 (Milk Of Magnesia Liq) 30 ml DAILY PO 09/18/17 09:00 09/18/17 09:31 (Dulcolax Supp) 10 mg UNSCH PRN RECTAL 09/18/17 08:45 (Miralax) 17 gm DAILY PO 09/19/17 09:00 (Senokot) 8.6 mg HS PO 09/18/17 21:00 (Fleets Enema (Adult)) 118 ml UNSCH PRN RECTAL 09/18/17 08:45 (Lopressor) 12.5 mg BID PO 09/19/17 09:00 (NovoLOG SUPPLEMENTAL SCALE) 1 02,06,10,14,18,22 SQ 09/18/17 10:00 09/19/17 06:01 (D50w (Vial) Inj) 50 ml UNSCH PRN IV PUSH 09/18/17 08:45 (Glucagon Inj) 1 mg UNSCH PRN OTHER 09/18/17 08:45 (NovoLOG SUPPLEMENTAL SCALE) 1 ACHS SQ 09/19/17 12:00 Magnesium Sulfate/ Dextrose 100 ml @ 100 mls/hr Q1H IV 09/18/17 10:30 09/18/17 12:29 A/P Problem List: (1) Chest pain ICD Code: R07.9 - Chest pain Status: Acute Assessment and Plan Severe CAD The patient has had bypass surgery in the past. Cardiology recommendations appreciated. Multivessel coronary disease noted on cath. Cardiomyopathy- EF30%- clinically not in failure. CTS consult appreciated. LDL elevated, but pt has documented allergy to statins. A1c 6%. S/p CABG 09/17. - continue cardiac regimen- BB, ASA, statins, CALLIE, Ranexa, po nitrates. - encourage ambulation with physical therapy. - incentive spirometry. - telemetry. - management per CTS. - pain control with a bowel regimen. Acute respiratory failure On vent following surgery, now extubated. - management per CTS. - nebs and oxygen as needed. - IS. - encourage ambulation. JULIO C on CKD stage 2 Nonoliguric. Creatinine improved. - follow BMP and avoid nephrotoxic agents. UTI UA indicative of infection. Cultures negative. - antibiotics per surgery. Elevated LFTs Unsure of etiology. Has some nausea, may be s/t pain meds. - continue to trend. Improving. - antiemetics as needed. Anemia/ thrombocytopenia Exacerbated by surgery. - Follow CBC and transfuse as needed. - Would workup thrombocytopenia if continues to decrease. DVT prophylaxis: Per surgery Rene Ngo DO Sep 18, 2017 10:27
[2017-09-18] MEDS: MAGNESIUM SULFATE 1 GM PREMIX 100 ML IV SCH ×2 (10:30→11:14)
--- NOTE | 2017-09-18 11:18 | EKG ---
Date Performed: 09/18/2017 Time Performed: 04:08:32 PTAGE: 76 years EKG: Atrial fibrillation Prolonged QT interval Left anterior fascicular block Cannot rule out an terior infarct - age undetermined Possible left ventricular hypertrophy Lateral T wave changes are pr obably due to ventricular hypertrophy Low QRS voltages in precordial leads Abnormal ECG PREVIOUS TRACING : 09/12/2017 17.19 Since the previous tracing, no significant change noted DOCTOR: Roberto Wisdom Interpretating Date/Time 09/18/2017 11:13:16
--- NOTE | 2017-09-18 14:26 | PD.CAR.PN ---
CVT Progress Note Subjective/Hospital Course: 76-year-old female with longstanding history of coronary artery disease. She has had a coronary artery bypass grafting approximately 17 years ago in [facility] in [place]. She has had multiple catheterization procedures since. She had stenting of the diagonal branch by Dr. Paul in 2011, stenting of the mid-circumflex artery which closed and then had to be reopened. Her last catheterization was in June of [address] Todd. Ejection fraction at that time was 40% and at the time the LAD had mid disease of 40% and some in- stent diagonal disease. The circumflex was diffusely diseased with a patent stent in the AV groove. She was felt to be treated medically at that point; however, she started having increasing chest pain for the last 10 days with sweating substernal left-sided chest discomfort with or without exertion. Troponins were negative but because of worsening chest pain she came to the emergency room to be admitted. She underwent cardiac catheterization by Dr. Chery which showed an ejection fraction of 25%, left main disease of 30, approximate LAD ostial 40, mid-distal LAD 60%, diagonal 80, the obtuse marginal 99, the RCA was totally occluded with [id number] collaterals. The IFR of the LAD was 0.87, the left circumflex was 0.98 and the OM was 0.98. We were consulted to evaluate for re-do coronary artery bypass grafting to the LAD, diagonal and RCA. EF 35% PAST MEDICAL HISTORY: Hypertension, Hyperlipidemia, Statin intolerance, Previous iron deficiency anemia. Multiple bowl surgeries causing a component of the iron deficiency anemia, gastroparesis, Recurrent genital herpes. History of previous stomach cancer, Uterine cancer. PAST SURGICAL HISTORY: Hysterectomy, Last surgery was by Dr. Carcamo who did an exploratory lap with extensive lysis of adhesions, segmental colon resection , low pelvic anastomosis, segmental transverse colon resection, primary anastomosis October of 2016, History of colostomy status post Shaun resection , History of gastric resection 09/11 no chest pain last pm await PFT and CT chest results 09/14 had some chest pain over the weekend, now resolved, received some morphine last pm timing for surgery per Dr Broussard/ possible on low grade temp/ pt needs to be OOB, use IS recheck UA 09/15 no more fevers for surgery on 09/16 repeat ua noted , + leukoestrase , few bacteria ( contaminated) will change to cipro IV until culture returns for surgery in am 09/17 surgery: Redo Off-pump Coronary Artery Bypass Grafting x 2 with Left Internal Mammary Artery (BUSTAMANTE) to the Left Anterior Descending (LAD), reverse saphenous vein graft to the Diagonal 1 (D1), Myocardial Lysis of Adhesions Left Leg Endoscopic Vein [place] extubated after surgery, crystalloid 3200cc, 480cc cell saver, 1000cc EBL 09/18 On nasal cannula remains NSR, BP labile this am , additional IV fluids given pain controlled leave chest tubes in transfer to stepdown unit on ASA, plavix, hold on BB with labile BP, no amiodarone intolerant to statins Objective: Vital Signs Date Time Temp Pulse Resp B/P (MAP) Pulse Ox O2 Delivery O2 Flow Rate FiO2 09/18/17 10:04 18 09/18/17 07:00 96 Nasal Cannula 2.00 09/18/17 07:00 74 09/18/17 07:00 98.3 74 22 135/82 (99) 93 138/60 (86) 09/18/17 04:00 70 09/18/17 04:00 99 Nasal Cannula 2.00 09/18/17 04:00 98.2 69 18 108/51 (70) 99 106/25 (52) 09/18/17 00:00 97.9 65 18 96/22 (46) 99 103/46 (65) 09/18/17 00:00 65 09/18/17 00:00 99 Nasal Cannula 2.00 09/17/17 23:00 71 103/44 09/17/17 22:00 99 Nasal Cannula 2.00 09/17/17 21:13 18 09/17/17 21:00 100 Nasal Cannula 3.00 09/17/17 20:54 100 Nasal Cannula 5.00 09/17/17 20:23 66 144/58 09/17/17 20:00 99 Nasal Cannula 4.00 09/17/17 20:00 66 09/17/17 20:00 97.0 66 20 152/56 (88) 99 09/17/17 18:00 62 148/53 09/17/17 17:41 98 Nasal Cannula 5.00 09/17/17 17:41 98 Nasal Cannula 5 09/17/17 16:37 18 09/17/17 16:11 99 40 09/17/17 15:17 61 155/60 09/17/17 15:00 53 09/17/17 15:00 97.5 53 18 122/45 (70) 99 Automatic Cuff 09/17/17 15:00 99 40 09/17/17 15:00 40 09/17/17 14:45 98 50 Labs: Laboratory Tests Test 09/18/17 04:40 White Blood Count 6.6 TH/MM3 (4.0-11.0) Red Blood Count 2.82 MIL/MM3 (4.00-5.30) Hemoglobin 8.6 GM/DL (11.6-15.3) Hematocrit 25.3 % (35.0-46.0) Mean Corpuscular Volume 89.6 FL (80.0-100.0) Mean Corpuscular Hemoglobin 30.4 PG (27.0-34.0) Mean Corpuscular Hemoglobin Concent 33.9 % (32.0-36.0) Red Cell Distribution Width 16.8 % (11.6-17.2) Platelet Count 91 TH/MM3 (150-450) Mean Platelet Volume 9.6 FL (7.0-11.0) Blood Urea Nitrogen 19 MG/DL (7-18) Creatinine 0.66 MG/DL (0.50-1.00) Random Glucose 104 MG/DL (74-106) Total Protein 4.6 GM/DL (6.4-8.2) Albumin 2.4 GM/DL (3.4-5.0) Calcium Level 7.5 MG/DL (8.5-10.1) Magnesium Level 1.9 MG/DL (1.5-2.5) Alkaline Phosphatase 112 U/L (45-117) Aspartate Amino Transf (AST/SGOT) 64 U/L (15-37) Alanine Aminotransferase (ALT/SGPT) 107 U/L (10-53) Total Bilirubin 0.4 MG/DL (0.2-1.0) Direct Bilirubin 0.1 MG/DL (0.0-0.2) Sodium Level 137 MEQ/L (136-145) Potassium Level 4.6 MEQ/L (3.5-5.1) Chloride Level 105 MEQ/L (98-107) Carbon Dioxide Level 25.2 MEQ/L (21.0-32.0) Anion Gap 7 MEQ/L (5-15) Estimat Glomerular Filtration Rate 87 ML/MIN (>89) Indirect Bilirubin 0.3 MG/DL (0.0-0.8) Result Diagram: 09/18/1743909/18/17439 Telemetry: NSR/ no Afib (1) HTN (hypertension) Plan: controlled (2) CAD (coronary artery disease) Plan: (3) S/P CABG x 2 Plan: ASA, plavix, hold on starting BB OOB, ambualte pulm toleting CM to eval for rehab / SNF at discharge (4) Ischemic cardiomyopathy Plan: EF 35% will need to be on tamiko after surgery (5) Hx of colostomy (6) Iron deficiency anemia Plan: start iron replacement (7) NSTEMI (non-ST elevated myocardial infarction) Danette Jaffe Sep 18, 2017 14:26
[2017-09-18] MEDS: FERROUS SULFATE 325 MG (65 MG ELEMENTAL IRON) TAB PO SCH (18:15)
[2017-09-18] MEDS: SENNOSIDES 8.6 MG TAB PO SCH ×2 (21:00→22:57)
[2017-09-18] MEDS ORDERED: SENNOSIDES 8.6 MG TAB PO SCH (21:00)
[2017-09-18] MEDS: ACETAMINOPHEN/HYDROcodone 325 MG/5 MG TAB PO PRN (22:56)
[2017-09-18] MEDS: ALPRAZolam 0.25 MG TAB PO PRN (22:57)
[2017-09-18] MEDS: DOCUSATE SODIUM 100 MG CAP PO SCH (22:57)
[2017-09-19] VITALS (27 sets, daily range): BP systolic 116–150; BP diastolic 58–84; PULSE 76–110; RESP 18–21; TEMP 98–100.5; O2SAT 92–100
[2017-09-19] MEDS: KETOROLAC TROMETHAMINE 30 MG/ML (IVP) VIAL IV PUSH PRN (00:13)
[2017-09-19] MEDS: ACETAMINOPHEN/HYDROcodone 325 MG/5 MG TAB PO PRN ×3 (04:17→21:42)
[2017-09-19] MEDS: PANTOPRAZOLE SOD 40 MG DELAYED RELEASE TAB PO SCH (04:17)
[2017-09-19 04:55] LABS: AUTOMATED NEUTROPHIL # 2.9 TH/MM3 (1.8-7.7); BASOPHIL % 0.2 % (0.0-2.0); EOSINOPHIL % 0.8 % (0.0-4.0); HEMATOCRIT 22.4 % (35.0-46.0); HEMOGLOBIN 7.6 GM/DL (11.6-15.3); LYMPH % 24.9 % (9.0-44.0); LYMPHOCYTE # 1.2 TH/MM3 (1.0-4.8); MEAN CELL VOLUME 90.2 FL (80.0-100.0); MEAN CORPUSCULAR HEMOGLOBIN 30.7 PG (27.0-34.0); MEAN PLATELET VOLUME 9.5 FL (7.0-11.0); MONOCYTE # 0.5 TH/MM3 (0-0.9); NEUT % 63.1 % (16.0-70.0); PLATELET COUNT 89 TH/MM3 (150-450); RED BLOOD COUNT 2.48 MIL/MM3 (4.00-5.30); RED CELL DISTRIBUTION WIDTH 17.7 % (11.6-17.2); WHITE BLOOD COUNT 4.7 TH/MM3 (4.0-11.0)
[2017-09-19 05:30] LABS: ALBUMIN 2.3 GM/DL (3.4-5.0); BICARBONATE 26.8 MEQ/L (21.0-32.0); CALCIUM 7.8 MG/DL (8.5-10.1); CREATININE 0.76 MG/DL (0.50-1.00); DIRECT BILIRUBIN ADULT 0.2 MG/DL (0.0-0.2); MAGNESIUM 2.2 MG/DL (1.5-2.5)
[2017-09-19 05:32] LABS: INDIRECT BILIRUBIN 0.3 MG/DL (0.0-0.8); TOTAL BILIRUBIN ADULT 0.5 MG/DL (0.2-1.0); TOTAL PROTEIN 4.8 GM/DL (6.4-8.2)
[2017-09-19] MEDS: INSULIN ASPART SUPPLEMENTAL SCALE SQ SCH ×4 (06:00→20:43)
[2017-09-19 06:16] LABS: ACANTHOCYTES OCC (NORMAL)
[2017-09-19] MEDS: RESP: ALBUTEROL 2.5 MG/IPRATROPIUM 0.5 MG NEB (SCH) NEB ×3 (08:00→21:41)
[2017-09-19] MEDS: MAGNESIUM HYDROXIDE SUSP 30 ML CUP PO SCH (08:37)
[2017-09-19] MEDS: POLYETHYLENE GLYCOL 17 GM PKG PO SCH (08:37)
[2017-09-19] MEDS: CLOPIDOGREL 75 MG TAB PO SCH (08:37)
[2017-09-19] MEDS: MULTIVITAMINS/MINERALS THERAPEUTIC TAB PO SCH (08:38)
[2017-09-19] MEDS: DOCUSATE SODIUM 100 MG CAP PO SCH ×2 (08:38→20:27)
[2017-09-19] MEDS: ASPIRIN 81 MG CHEW TAB PO SCH (08:38)
[2017-09-19] MEDS: METOPROLOL TARTRATE 25 MG TAB PO SCH ×2 (08:38→20:29)
[2017-09-19] MEDS: MUPIROCIN 2% OINT 1 APPLIC/GM SYR EACH NARE SCH (09:00)
[2017-09-19] MEDS: SODIUM CHLORIDE 0.9% FLUSH 10 ML FLUSH IV FLUSH SCH ×2 (09:00→20:30)
--- NOTE | 2017-09-19 10:01 | PD.CAR.PN ---
CVT Progress Note Subjective/Hospital Course: 76-year-old female with longstanding history of coronary artery disease. She has had a coronary artery bypass grafting approximately 17 years ago in [facility] in [place]. She has had multiple catheterization procedures since. She had stenting of the diagonal branch by Dr. Paul in 2011, stenting of the mid-circumflex artery which closed and then had to be reopened. Her last catheterization was in June of [address] Todd. Ejection fraction at that time was 40% and at the time the LAD had mid disease of 40% and some in- stent diagonal disease. The circumflex was diffusely diseased with a patent stent in the AV groove. She was felt to be treated medically at that point; however, she started having increasing chest pain for the last 10 days with sweating substernal left-sided chest discomfort with or without exertion. Troponins were negative but because of worsening chest pain she came to the emergency room to be admitted. She underwent cardiac catheterization by Dr. Chery which showed an ejection fraction of 25%, left main disease of 30, approximate LAD ostial 40, mid-distal LAD 60%, diagonal 80, the obtuse marginal 99, the RCA was totally occluded with [id number] collaterals. The IFR of the LAD was 0.87, the left circumflex was 0.98 and the OM was 0.98. We were consulted to evaluate for re-do coronary artery bypass grafting to the LAD, diagonal and RCA. EF 35% PAST MEDICAL HISTORY: Hypertension, Hyperlipidemia, Statin intolerance, Previous iron deficiency anemia. Multiple bowl surgeries causing a component of the iron deficiency anemia, gastroparesis, Recurrent genital herpes. History of previous stomach cancer, Uterine cancer. PAST SURGICAL HISTORY: Hysterectomy, Last surgery was by Dr. Carcamo who did an exploratory lap with extensive lysis of adhesions, segmental colon resection , low pelvic anastomosis, segmental transverse colon resection, primary anastomosis October of 2016, History of colostomy status post Shaun resection , History of gastric resection 09/11 no chest pain last pm await PFT and CT chest results 09/14 had some chest pain over the weekend, now resolved, received some morphine last pm timing for surgery per Dr Broussard/ possible on low grade temp/ pt needs to be OOB, use IS recheck UA 09/15 no more fevers for surgery on 09/16 repeat ua noted , + leukoestrase , few bacteria ( contaminated) will change to cipro IV until culture returns for surgery in am 09/17 surgery: Redo Off-pump Coronary Artery Bypass Grafting x 2 with Left Internal Mammary Artery (BUSTAMANTE) to the Left Anterior Descending (LAD), reverse saphenous vein graft to the Diagonal 1 (D1), Myocardial Lysis of Adhesions Left Leg Endoscopic Vein [place] extubated after surgery, crystalloid 3200cc, 480cc cell saver, 1000cc EBL 09/18 On nasal cannula remains NSR, BP labile this am , additional IV fluids given pain controlled leave chest tubes in transfer to stepdown unit on ASA, plavix, hold on BB with labile BP, no amiodarone intolerant to statins 09/19 Doing well D/C CT today Monitor Hgb and Platelets Discharge planning Objective: Vital Signs Date Time Temp Pulse Resp B/P (MAP) Pulse Ox O2 Delivery O2 Flow Rate FiO2 09/19/17 08:01 96 Nasal Cannula 2.00 09/19/17 07:15 92 09/19/17 06:00 82 09/19/17 05:00 80 09/19/17 04:00 80 09/19/17 04:00 99.4 91 18 150/62 (91) 92 09/19/17 03:06 98 Room Air 09/19/17 03:00 81 09/19/17 02:00 90 09/19/17 01:00 102 09/19/17 00:00 99 Room Air 09/19/17 00:00 90 09/19/17 00:00 100.5 97 18 145/65 (91) 99 09/18/17 23:00 88 09/18/17 22:00 98 09/18/17 21:00 94 09/18/17 20:20 92 Room Air 09/18/17 20:16 99.5 98 18 130/58 (82) 92 09/18/17 20:00 96 09/18/17 19:00 94 09/18/17 16:00 99 Nasal Cannula 2.00 09/18/17 15:00 92 09/18/17 14:38 94 21 09/18/17 12:00 99 Nasal Cannula 2.00 09/18/17 12:00 90 09/18/17 12:00 98.6 90 18 112/53 (72) 95 Arterial Line 09/18/17 10:04 18 Labs: Laboratory Tests Test 09/19/17 04:45 White Blood Count 4.7 TH/MM3 (4.0-11.0) Red Blood Count 2.48 MIL/MM3 (4.00-5.30) Hemoglobin 7.6 GM/DL (11.6-15.3) Hematocrit 22.4 % (35.0-46.0) Mean Corpuscular Volume 90.2 FL (80.0-100.0) Mean Corpuscular Hemoglobin 30.7 PG (27.0-34.0) Mean Corpuscular Hemoglobin Concent 34.0 % (32.0-36.0) Red Cell Distribution Width 17.7 % (11.6-17.2) Platelet Count 89 TH/MM3 (150-450) Mean Platelet Volume 9.5 FL (7.0-11.0) Neutrophils (%) (Auto) 63.1 % (16.0-70.0) Lymphocytes (%) (Auto) 24.9 % (9.0-44.0) Monocytes (%) (Auto) 11.0 % (0.0-8.0) Eosinophils (%) (Auto) 0.8 % (0.0-4.0) Basophils (%) (Auto) 0.2 % (0.0-2.0) Neutrophils # (Auto) 2.9 TH/MM3 (1.8-7.7) Lymphocytes # (Auto) 1.2 TH/MM3 (1.0-4.8) Monocytes # (Auto) 0.5 TH/MM3 (0-0.9) Eosinophils # (Auto) 0.0 TH/MM3 (0-0.4) Basophils # (Auto) 0.0 TH/MM3 (0-0.2) CBC Comment AUTO DIFF Differential Comment AUTO DIFF CONFIRMED Platelet Estimate LOW (NORMAL) Platelet Morphology Comment NORMAL (NORMAL) Basophilic Stippling FAINT (NORMAL) Acanthocytes OCC (NORMAL) Blood Urea Nitrogen 23 MG/DL (7-18) Creatinine 0.76 MG/DL (0.50-1.00) Random Glucose 99 MG/DL (74-106) Total Protein 4.8 GM/DL (6.4-8.2) Albumin 2.3 GM/DL (3.4-5.0) Calcium Level 7.8 MG/DL (8.5-10.1) Magnesium Level 2.2 MG/DL (1.5-2.5) Alkaline Phosphatase 133 U/L (45-117) Aspartate Amino Transf (AST/SGOT) 82 U/L (15-37) Alanine Aminotransferase (ALT/SGPT) 117 U/L (10-53) Total Bilirubin 0.5 MG/DL (0.2-1.0) Direct Bilirubin 0.2 MG/DL (0.0-0.2) Sodium Level 139 MEQ/L (136-145) Potassium Level 4.4 MEQ/L (3.5-5.1) Chloride Level 105 MEQ/L (98-107) Carbon Dioxide Level 26.8 MEQ/L (21.0-32.0) Anion Gap 7 MEQ/L (5-15) Estimat Glomerular Filtration Rate 74 ML/MIN (>89) Indirect Bilirubin 0.3 MG/DL (0.0-0.8) Result Diagram: 09/19/1744409/19/17444 (1) HTN (hypertension) Plan: controlled (2) CAD (coronary artery disease) Plan: (3) S/P CABG x 2 Plan: ASA, plavix, hold on starting BB OOB, ambualte pulm toleting CM to eval for rehab / SNF at discharge (4) Ischemic cardiomyopathy Plan: EF 35% will need to be on tamiko after surgery (5) Hx of colostomy (6) Iron deficiency anemia Plan: start iron replacement (7) NSTEMI (non-ST elevated myocardial infarction) Milena Broussard MD Sep 19, 2017 10:01
--- NOTE | 2017-09-19 10:51 | HHI.PR ---
Subjective Remarks The patient was resting comfortably. She stated that she does have a history of low red blood cell count as well as platelet count. She has not been able to follow-up with an oncologist recently. She said she used to be on Venofer. She had questions pertaining to how functional she will be at home. She says her pain was not quite controlled at this time. Discussed with nursing. Objective Vitals Vital Signs Date Time Temp Pulse Resp B/P (MAP) Pulse Ox O2 Delivery O2 Flow Rate FiO2 09/19/17 09:40 19 09/19/17 08:01 96 Nasal Cannula 2.00 09/19/17 07:15 92 09/19/17 07:00 96 Nasal Cannula 2.00 09/19/17 07:00 98.8 105 20 133/84 (100) 96 09/19/17 06:00 82 09/19/17 05:00 80 09/19/17 04:00 80 09/19/17 04:00 99.4 91 18 150/62 (91) 92 09/19/17 03:06 98 Room Air 09/19/17 03:00 81 09/19/17 02:00 90 09/19/17 01:00 102 09/19/17 00:00 99 Room Air 09/19/17 00:00 90 09/19/17 00:00 100.5 97 18 145/65 (91) 99 09/18/17 23:00 88 09/18/17 22:00 98 09/18/17 21:00 94 09/18/17 20:20 92 Room Air 09/18/17 20:16 99.5 98 18 130/58 (82) 92 09/18/17 20:00 96 09/18/17 19:00 94 09/18/17 16:00 99 Nasal Cannula 2.00 09/18/17 15:00 92 09/18/17 14:38 94 21 09/18/17 12:00 99 Nasal Cannula 2.00 09/18/17 12:00 90 09/18/17 12:00 98.6 90 18 112/53 (72) 95 Arterial Line I/O 09/18/17 09/18/17 09/18/17 09/19/17 09/19/17 09/19/17 07:00 15:00 23:00 07:00 15:00 23:00 Intake Total 1200 ml 395 ml 650 ml 490 ml Output Total 525 ml 300 ml 350 ml Balance 675 ml 395 ml 350 ml 140 ml Intake Oral 100 ml 650 ml 240 ml IV Total 1100 ml 395 ml 250 ml Output Urine Total 435 ml 150 ml 350 ml Chest Tube Drainage Total 90 ml 150 ml # Bowel Movements 0 0 0 Result Diagram: 09/19/17 0445 09/19/17 0445 Imaging Last Impressions Chest X-Ray 09/18/17 0500 Signed Impressions: Service Date/Time: Monday, September 18, 2017 04:23 - CONCLUSION: 1. Developing atelectatic changes of the left hemidiaphragm. 2. Interval removal of the endotracheal and nasogastric tubes. Jelani Gloria MD Lower Extremity Ultrasound 09/10/17 0000 Signed Impressions: Service Date/Time: September 17:08 - CONCLUSION: 1. Lower extremity venous mapping, as above. Maulik Fischer MD Chest CT 09/10/17 0000 Signed Impressions: Service Date/Time: Monday, September 11, 2017 20:12 - CONCLUSION: No focal infiltrates seen. Mild linear scarring in both lung bases. Abundio Mccoy MD Carotid Artery Ultrasound 09/08/17 0000 Signed Impressions: Service Date/Time: Friday, September 08, 2017 22:00 - CONCLUSION: Mild plaque formation in the carotid bulb bilaterally with hemodynamic parameters characteristic of less than 50%% stenosis. Abundio Mccoy MD Objective Remarks GENERAL: Resting in bed. SKIN: Port in place - right chest wall. Bandage in place in center of chest. PULMONARY: CTAB. No W/R/R. CARDIAC: Regular rate and rhythm. GI: Abdomen soft, nontender. EXTREMITIES: No edema. NEURO: Awake and alert. PSYCH: Mood and affect appropriate. Procedures Cardiac catheterization CABG Medications and IVs Current Medications Medications (Trade) Dose Ordered Sig/Tata Route Start Time Stop Time Status Last Admin (Compazine Supp) 25 mg Q12H PRN RECTAL 09/08/17 20:00 09/10/17 20:25 (Narcan Inj) 0.4 mg UNSCH PRN IV PUSH 09/08/17 20:00 (Imodium) 2 mg Q6H PRN PO 09/11/17 15:15 09/15/17 20:44 (Bactroban Nasal 2% Oint) 1 applic BID EACH NARE 09/14/17 21:00 09/19/17 20:59 09/18/17 09:31 (Xanax) 0.125 mg Q4H PRN PO 09/16/17 09:45 09/18/17 22:57 (Pill Splitter) 1 ea UNSCH PRN OTHER 09/16/17 10:00 (NS Flush) 2 ml BID IV FLUSH 09/17/17 21:00 09/19/17 09:00 (NS Flush) 2 ml UNSCH PRN IV FLUSH 09/17/17 12:45 (Aspirin Chew) 81 mg DAILY PO 09/18/17 09:00 09/19/17 08:38 (Plavix) 75 mg DAILY PO 09/18/17 09:00 (Protonix) 40 mg DAILY@06 PO 09/18/17 06:00 09/19/17 04:17 (Tylenol) 650 mg Q4H PRN PO 09/17/17 12:45 ([place] 5-325 Mg) 1 tab Q3H PRN PO 09/17/17 12:45 09/19/17 08:35 (Duoneb Neb) 1 ampule Q2HR NEB PRN NEB 09/17/17 12:45 (Duoneb Neb) 1 ampule Q6HR WHILE AWAKE NEB NEB 09/18/17 14:00 09/20/17 13:59 09/19/17 08:00 (Colace) 100 mg BID PO 09/18/17 21:00 09/19/17 08:38 (Theragran M Tab) 1 tab DAILY PO 09/18/17 09:00 09/19/17 08:38 (Milk Of Magnesia Liq) 30 ml DAILY PO 09/18/17 09:00 09/18/17 09:31 (Dulcolax Supp) 10 mg UNSCH PRN RECTAL 09/18/17 08:45 (Miralax) 17 gm DAILY PO 09/19/17 09:00 (Fleets Enema (Adult)) 118 ml UNSCH PRN RECTAL 09/18/17 08:45 (Lopressor) 12.5 mg BID PO 09/19/17 09:00 09/19/17 08:38 (D50w (Vial) Inj) 50 ml UNSCH PRN IV PUSH 09/18/17 08:45 (Glucagon Inj) 1 mg UNSCH PRN OTHER 09/18/17 08:45 (NovoLOG SUPPLEMENTAL SCALE) 1 ACHS SQ 09/19/17 12:00 (Senokot) 17.2 mg HS PO 09/18/17 21:00 (Ferrous Sulfate) 325 mg BID@12,17 PO 09/18/17 17:00 ([place] 10-325 Mg) 1 tab Q4H PRN PO 09/19/17 10:15 (Morphine Inj) 2 mg Q4H PRN IV PUSH 09/19/17 10:15 A/P Problem List: (1) Chest pain ICD Code: R07.9 - Chest pain Status: Acute Assessment and Plan Severe CAD The patient has had bypass surgery in the past. Cardiology recommendations appreciated. Multivessel coronary disease noted on cath. Cardiomyopathy- EF30%- clinically not in failure. CTS consult appreciated. LDL elevated, but pt has documented allergy to statins. A1c 6%. S/p CABG 09/17. - continue cardiac regimen- BB, ASA, statins, CALLIE, Ranexa, po nitrates. - encourage ambulation with physical therapy. - incentive spirometry. - telemetry. - management per CTS. - pain control with a bowel regimen. Increase Lortab, add morphine for breakthrough. D/c Toradol s/t thrombocytopenia. Acute respiratory failure On vent following surgery, now extubated. - management per CTS. - nebs and oxygen as needed. - IS. - encourage ambulation. JULIO C on CKD stage 2 Nonoliguric. Creatinine improved. - follow BMP and avoid nephrotoxic agents. UTI UA indicative of infection. Cultures negative. - antibiotics per surgery. Elevated LFTs Unsure of etiology. Has some nausea, may be s/t pain meds. - continue to trend. Improving. - antiemetics as needed. Anemia/ thrombocytopenia Exacerbated by surgery. The pt says she has a history of being on Venofer and has a history of low platelets. - Follow CBC and transfuse as needed. - anemia work-up. - HIT panel if plt count continues to decrease. - transfuse per CTS. DVT prophylaxis: Per surgery Rene Ngo DO Sep 19, 2017 10:51
[2017-09-19] MEDS: FERROUS SULFATE 325 MG (65 MG ELEMENTAL IRON) TAB PO SCH ×2 (12:00→17:00)
[2017-09-19] MEDS: MORPHINE SULFATE 2 MG/ML INJ IV PUSH PRN ×2 (13:00→20:26)
[2017-09-19 13:12] LABS: IRON (FE) 34 MCG/DL (50-170)
[2017-09-19 13:37] LABS: % SATURATION IRON PROFILE 12.6 % (20-50); FERRITIN 57 NG/ML (8-252); FOLATE 11.5 NG/ML (3.1-17.5); TOTAL IRON BINDING CAPACITY 269 MCG/DL (250-450)
[2017-09-19] MEDS: ACETAMINOPHEN/HYDROcodone 325 MG/10 MG TAB PO PRN (16:45)
[2017-09-19] MEDS: SENNOSIDES 8.6 MG TAB PO SCH (20:29)
[2017-09-19] MEDS: ALPRAZolam 0.25 MG TAB PO PRN (21:41)
[2017-09-20] VITALS (30 sets, daily range): BP systolic 120–154; BP diastolic 56–99; PULSE 75–108; RESP 16–20; TEMP 97.9–100; O2SAT 92–99
[2017-09-20] MEDS: MORPHINE SULFATE 2 MG/ML INJ IV PUSH PRN ×4 (00:27→18:38)
[2017-09-20] MEDS: ACETAMINOPHEN/HYDROcodone 325 MG/5 MG TAB PO PRN ×4 (00:27→15:29)
[2017-09-20] MEDS: PANTOPRAZOLE SOD 40 MG DELAYED RELEASE TAB PO SCH (06:29)
[2017-09-20 06:56] LABS: ALBUMIN 2.3 GM/DL (3.4-5.0); BICARBONATE 27.6 MEQ/L (21.0-32.0); CALCIUM 7.9 MG/DL (8.5-10.1); CREATININE 0.65 MG/DL (0.50-1.00); MAGNESIUM 1.8 MG/DL (1.5-2.5)
[2017-09-20 06:58] LABS: DIRECT BILIRUBIN ADULT 0.2 MG/DL (0.0-0.2)
[2017-09-20 07:00] LABS: INDIRECT BILIRUBIN 0.2 MG/DL (0.0-0.8); TOTAL BILIRUBIN ADULT 0.4 MG/DL (0.2-1.0); TOTAL PROTEIN 4.9 GM/DL (6.4-8.2)
[2017-09-20 07:05] LABS: HEMOGLOBIN 7.4 GM/DL (11.6-15.3); MEAN CELL VOLUME 90.3 FL (80.0-100.0); MEAN CORPUSCULAR HEMOGLOBIN 30.3 PG (27.0-34.0); MEAN CORPUSCULAR HGB CONC 33.5 % (32.0-36.0); MEAN PLATELET VOLUME 9.8 FL (7.0-11.0); PLATELET COUNT 100 TH/MM3 (150-450); RED BLOOD COUNT 2.44 MIL/MM3 (4.00-5.30); RED CELL DISTRIBUTION WIDTH 17.4 % (11.6-17.2); WHITE BLOOD COUNT 4.2 TH/MM3 (4.0-11.0)
[2017-09-20] MEDS: INSULIN ASPART SUPPLEMENTAL SCALE SQ SCH ×4 (08:00→20:41)
[2017-09-20] MEDS: DOCUSATE SODIUM 100 MG CAP PO SCH ×2 (08:30→21:10)
[2017-09-20] MEDS: ASPIRIN 81 MG CHEW TAB PO SCH (08:30)
[2017-09-20] MEDS: POLYETHYLENE GLYCOL 17 GM PKG PO SCH (08:30)
[2017-09-20] MEDS: MAGNESIUM HYDROXIDE SUSP 30 ML CUP PO SCH (08:30)
[2017-09-20] MEDS: CLOPIDOGREL 75 MG TAB PO SCH (08:30)
[2017-09-20] MEDS: MULTIVITAMINS/MINERALS THERAPEUTIC TAB PO SCH (08:30)
[2017-09-20] MEDS: METOPROLOL TARTRATE 25 MG TAB PO SCH ×2 (08:30→21:10)
[2017-09-20] MEDS: SODIUM CHLORIDE 0.9% FLUSH 10 ML FLUSH IV FLUSH SCH ×2 (08:35→21:10)
[2017-09-20] MEDS: RESP: ALBUTEROL 2.5 MG/IPRATROPIUM 0.5 MG NEB (SCH) NEB (09:43)
--- NOTE | 2017-09-20 09:57 | HHI.PR ---
Subjective Remarks The patient was feeling a little better today. She said she was staying on top of her pain control. She said she would be able to work with physical therapy later on. She has been tolerating a diet. She says she cannot tolerate iron pills secondary to her stomach. Discussed with nursing. Objective Vitals Vital Signs Date Time Temp Pulse Resp B/P (MAP) Pulse Ox O2 Delivery O2 Flow Rate FiO2 09/20/17 09:50 19 09/20/17 09:48 94 21 09/20/17 09:00 82 09/20/17 08:00 83 09/20/17 07:15 98 Room Air 09/20/17 07:15 98.9 85 17 144/57 (86) 98 09/20/17 07:00 83 09/20/17 06:00 80 09/20/17 05:01 98.6 90 20 146/99 (115) 92 09/20/17 05:00 78 09/20/17 05:00 92 Nasal Cannula 2.00 09/20/17 04:00 76 09/20/17 03:00 90 09/20/17 02:00 82 09/20/17 01:00 86 09/20/17 00:32 18 09/20/17 00:27 98.6 88 18 120/79 (93) 98 09/20/17 00:00 82 09/19/17 23:18 100 Nasal Cannula 2.00 09/19/17 23:00 96 09/19/17 22:00 92 09/19/17 21:41 96 Nasal Cannula 2.00 09/19/17 21:00 90 09/19/17 20:00 100 Nasal Cannula 2.00 09/19/17 20:00 90 09/19/17 20:00 98.5 87 18 120/64 (82) 100 09/19/17 19:00 90 09/19/17 18:00 104 09/19/17 17:45 19 09/19/17 17:00 98 09/19/17 16:00 92 09/19/17 15:00 Nasal Cannula 2.00 09/19/17 15:00 81 09/19/17 15:00 98.0 84 19 148/64 (92) 09/19/17 14:00 88 09/19/17 13:00 83 09/19/17 12:00 89 09/19/17 11:00 98.0 76 21 116/58 (77) 100 09/19/17 11:00 100 Nasal Cannula 2.00 09/19/17 11:00 80 09/19/17 10:00 76 I/O 09/19/17 09/19/17 09/19/17 09/20/17 09/20/17 09/20/17 07:00 15:00 23:00 07:00 15:00 23:00 Intake Total 490 ml 480 ml 240 ml Output Total 350 ml 1050 ml Balance 140 ml 480 ml -810 ml Intake Oral 240 ml 480 ml 240 ml IV Total 250 ml Output Urine Total 350 ml 1050 ml # Voids 3 # Bowel Movements 0 0 Result Diagram: 09/20/17 0445 09/20/17 0445 Imaging Last Impressions Chest X-Ray 09/18/17 0500 Signed Impressions: Service Date/Time: Monday, September 18, 2017 04:23 - CONCLUSION: 1. Developing atelectatic changes of the left hemidiaphragm. 2. Interval removal of the endotracheal and nasogastric tubes. Jelani Gloria MD Lower Extremity Ultrasound 09/10/17 0000 Signed Impressions: Service Date/Time: September 17:08 - CONCLUSION: 1. Lower extremity venous mapping, as above. Maulik Fischer MD Chest CT 09/10/17 0000 Signed Impressions: Service Date/Time: Monday, September 11, 2017 20:12 - CONCLUSION: No focal infiltrates seen. Mild linear scarring in both lung bases. Abundio Mccoy MD Carotid Artery Ultrasound 09/08/17 0000 Signed Impressions: Service Date/Time: Friday, September 08, 2017 22:00 - CONCLUSION: Mild plaque formation in the carotid bulb bilaterally with hemodynamic parameters characteristic of less than 50%% stenosis. Abundio Mccoy MD Objective Remarks GENERAL: Resting in bed. SKIN: Port in place - right chest wall. Pale. PULMONARY: CTAB. No W/R/R. CARDIAC: Regular rate and rhythm. GI: Abdomen soft, nontender. EXTREMITIES: No edema. NEURO: Awake and alert. PSYCH: Mood and affect appropriate. Procedures Cardiac catheterization CABG Medications and IVs Current Medications Medications (Trade) Dose Ordered Sig/Tata Route Start Time Stop Time Status Last Admin (Compazine Supp) 25 mg Q12H PRN RECTAL 09/08/17 20:00 09/10/17 20:25 (Narcan Inj) 0.4 mg UNSCH PRN IV PUSH 09/08/17 20:00 (Imodium) 2 mg Q6H PRN PO 09/11/17 15:15 09/15/17 20:44 (Xanax) 0.125 mg Q4H PRN PO 09/16/17 09:45 09/19/17 21:41 (Pill Splitter) 1 ea UNSCH PRN OTHER 09/16/17 10:00 (NS Flush) 2 ml BID IV FLUSH 09/17/17 21:00 09/20/17 08:35 (NS Flush) 2 ml UNSCH PRN IV FLUSH 09/17/17 12:45 (Aspirin Chew) 81 mg DAILY PO 09/18/17 09:00 09/20/17 08:30 (Plavix) 75 mg DAILY PO 09/18/17 09:00 (Protonix) 40 mg DAILY@06 PO 09/18/17 06:00 09/20/17 06:29 (Tylenol) 650 mg Q4H PRN PO 09/17/17 12:45 ([place] 5-325 Mg) 1 tab Q3H PRN PO 09/17/17 12:45 09/20/17 08:31 (Duoneb Neb) 1 ampule Q2HR NEB PRN NEB 09/17/17 12:45 (Duoneb Neb) 1 ampule Q6HR WHILE AWAKE NEB NEB 09/18/17 14:00 09/20/17 13:59 09/20/17 09:43 (Colace) 100 mg BID PO 09/18/17 21:00 09/20/17 08:30 (Theragran M Tab) 1 tab DAILY PO 09/18/17 09:00 09/20/17 08:30 (Milk Of Magnesia Liq) 30 ml DAILY PO 09/18/17 09:00 09/18/17 09:31 (Dulcolax Supp) 10 mg UNSCH PRN RECTAL 09/18/17 08:45 (Miralax) 17 gm DAILY PO 09/19/17 09:00 (Fleets Enema (Adult)) 118 ml UNSCH PRN RECTAL 09/18/17 08:45 (Lopressor) 12.5 mg BID PO 09/19/17 09:00 09/20/17 08:30 (D50w (Vial) Inj) 50 ml UNSCH PRN IV PUSH 09/18/17 08:45 (Glucagon Inj) 1 mg UNSCH PRN OTHER 09/18/17 08:45 (NovoLOG SUPPLEMENTAL SCALE) 1 ACHS SQ 09/19/17 12:00 09/20/17 08:00 (Senokot) 17.2 mg HS PO 09/18/17 21:00 (Ferrous Sulfate) 325 mg BID@12,17 PO 09/18/17 17:00 ([place] 10-325 Mg) 1 tab Q4H PRN PO 09/19/17 10:15 09/19/17 16:45 (Morphine Inj) 2 mg Q4H PRN IV PUSH 09/19/17 10:15 09/20/17 06:30 A/P Problem List: (1) Chest pain ICD Code: R07.9 - Chest pain Status: Acute Assessment and Plan Severe CAD The patient has had bypass surgery in the past. Cardiology recommendations appreciated. Multivessel coronary disease noted on cath. Cardiomyopathy- EF30%- clinically not in failure. CTS consult appreciated. LDL elevated, but pt has documented allergy to statins. A1c 6%. S/p CABG 09/17. - continue cardiac regimen- BB, ASA, CALLIE, Ranexa, po nitrates. No statin secondary to elevated LFTs. - encourage ambulation with physical therapy. - incentive spirometry. - telemetry. - management per CTS. - pain control with a bowel regimen. Increase Lortab, added morphine for breakthrough. D/c Toradol s/t thrombocytopenia. Acute respiratory failure On vent following surgery, now extubated. Currently breathing comfortably. - management per CTS. - nebs and oxygen as needed. - IS. - encourage ambulation. JULIO C on CKD stage 2 Nonoliguric. Creatinine improved. - follow BMP and avoid nephrotoxic agents. UTI UA indicative of infection. Cultures negative. - antibiotics per surgery. Elevated LFTs Unsure of etiology. Has some nausea, may be s/t pain meds. - continue to trend. - antiemetics as needed. - Check a liver ultrasound and hepatitis profile. Anemia/ thrombocytopenia Exacerbated by surgery. The pt says she has a history of being on Venofer and has a history of low platelets. Platelet count improving. CT surgery does not want to transfuse the patient at this time. - Follow CBC and transfuse per surgery. - Consider Venofer. DVT prophylaxis: Per surgery Rene Ngo DO Sep 20, 2017 09:57
--- NOTE | 2017-09-20 10:52 | PD.CAR.PN ---
CVT Progress Note Subjective/Hospital Course: 76-year-old female with longstanding history of coronary artery disease. She has had a coronary artery bypass grafting approximately 17 years ago in [facility] in [place]. She has had multiple catheterization procedures since. She had stenting of the diagonal branch by Dr. Paul in 2011, stenting of the mid-circumflex artery which closed and then had to be reopened. Her last catheterization was in June [address] Todd. Ejection fraction at that time was 40% and at the time the LAD had mid disease of 40% and some in- stent diagonal disease. The circumflex was diffusely diseased with a patent stent in the AV groove. She was felt to be treated medically at that point; however, she started having increasing chest pain for the last 10 days with sweating substernal left-sided chest discomfort with or without exertion. Troponins were negative but because of worsening chest pain she came to the emergency room to be admitted. She underwent cardiac catheterization by Dr. Chery which showed an ejection fraction of 25%, left main disease of 30, approximate LAD ostial 40, mid-distal LAD 60%, diagonal 80, the obtuse marginal 99, the RCA was totally occluded with [id number] collaterals. The IFR of the LAD was 0.87, the left circumflex was 0.98 and the OM was 0.98. We were consulted to evaluate for re-do coronary artery bypass grafting to the LAD, diagonal and RCA. EF 35% PAST MEDICAL HISTORY: Hypertension, Hyperlipidemia, Statin intolerance, Previous iron deficiency anemia. Multiple bowl surgeries causing a component of the iron deficiency anemia, gastroparesis, Recurrent genital herpes. History of previous stomach cancer, Uterine cancer. PAST SURGICAL HISTORY: Hysterectomy, Last surgery was by Dr. Carcamo who did an exploratory lap with extensive lysis of adhesions, segmental colon resection , low pelvic anastomosis, segmental transverse colon resection, primary anastomosis October of 2016, History of colostomy status post Shaun resection , History of gastric resection 09/11 no chest pain last pm await PFT and CT chest results 09/14 had some chest pain over the weekend, now resolved, received some morphine last pm timing for surgery per Dr Broussard/ possible on low grade temp/ pt needs to be OOB, use IS recheck UA 09/15 no more fevers for surgery on 09/16 repeat ua noted , + leukoestrase , few bacteria ( contaminated) will change to cipro IV until culture returns for surgery in am 09/17 surgery: Redo Off-pump Coronary Artery Bypass Grafting x 2 with Left Internal Mammary Artery (BUSTAMANTE) to the Left Anterior Descending (LAD), reverse saphenous vein graft to the Diagonal 1 (D1), Myocardial Lysis of Adhesions Left Leg Endoscopic Vein [place] extubated after surgery, crystalloid 3200cc, 480cc cell saver, 1000cc EBL 09/18 On nasal cannula remains NSR, BP labile this am , additional IV fluids given pain controlled leave chest tubes in transfer to stepdown unit on ASA, plavix, hold on BB with labile BP, no amiodarone intolerant to statins 09/19 Doing well D/C CT today Monitor Hgb and Platelets Discharge planning 09/20 Doing well Platelets better. Hgb stable Discharge in am Objective: Vital Signs Date Time Temp Pulse Resp B/P (MAP) Pulse Ox O2 Delivery O2 Flow Rate FiO2 09/20/17 10:47 19 09/20/17 10:00 82 09/20/17 09:50 19 09/20/17 09:48 94 21 09/20/17 09:00 82 09/20/17 08:00 83 09/20/17 07:15 98 Room Air 09/20/17 07:15 98.9 85 17 144/57 (86) 98 09/20/17 07:00 83 09/20/17 06:00 80 09/20/17 05:01 98.6 90 20 146/99 (115) 92 09/20/17 05:00 78 09/20/17 05:00 92 Nasal Cannula 2.00 09/20/17 04:00 76 09/20/17 03:00 90 09/20/17 02:00 82 09/20/17 01:00 86 09/20/17 00:27 98.6 88 18 120/79 (93) 98 09/20/17 00:00 82 09/19/17 23:18 100 Nasal Cannula 2.00 09/19/17 23:00 96 09/19/17 22:00 92 09/19/17 21:41 96 Nasal Cannula 2.00 09/19/17 21:00 90 09/19/17 20:00 100 Nasal Cannula 2.00 09/19/17 20:00 90 09/19/17 20:00 98.5 87 18 120/64 (82) 100 09/19/17 19:00 90 09/19/17 18:00 104 09/19/17 17:45 19 09/19/17 17:00 98 09/19/17 16:00 92 09/19/17 15:00 Nasal Cannula 2.00 09/19/17 15:00 81 09/19/17 15:00 98.0 84 19 148/64 (92) 09/19/17 14:00 88 09/19/17 13:00 83 09/19/17 12:00 89 09/19/17 11:00 98.0 76 21 116/58 (77) 100 09/19/17 11:00 100 Nasal Cannula 2.00 09/19/17 11:00 80 Labs: Laboratory Tests Test 09/20/17 04:45 White Blood Count 4.2 TH/MM3 (4.0-11.0) Red Blood Count 2.44 MIL/MM3 (4.00-5.30) Hemoglobin 7.4 GM/DL (11.6-15.3) Hematocrit 22.0 % (35.0-46.0) Mean Corpuscular Volume 90.3 FL (80.0-100.0) Mean Corpuscular Hemoglobin 30.3 PG (27.0-34.0) Mean Corpuscular Hemoglobin Concent 33.5 % (32.0-36.0) Red Cell Distribution Width 17.4 % (11.6-17.2) Platelet Count 100 TH/MM3 (150-450) Mean Platelet Volume 9.8 FL (7.0-11.0) Blood Urea Nitrogen 17 MG/DL (7-18) Creatinine 0.65 MG/DL (0.50-1.00) Random Glucose 109 MG/DL (74-106) Total Protein 4.9 GM/DL (6.4-8.2) Albumin 2.3 GM/DL (3.4-5.0) Calcium Level 7.9 MG/DL (8.5-10.1) Magnesium Level 1.8 MG/DL (1.5-2.5) Alkaline Phosphatase 223 U/L (45-117) Aspartate Amino Transf (AST/SGOT) 123 U/L (15-37) Alanine Aminotransferase (ALT/SGPT) 135 U/L (10-53) Total Bilirubin 0.4 MG/DL (0.2-1.0) Direct Bilirubin 0.2 MG/DL (0.0-0.2) Sodium Level 136 MEQ/L (136-145) Potassium Level 4.1 MEQ/L (3.5-5.1) Chloride Level 102 MEQ/L (98-107) Carbon Dioxide Level 27.6 MEQ/L (21.0-32.0) Anion Gap 6 MEQ/L (5-15) Estimat Glomerular Filtration Rate 89 ML/MIN (>89) Indirect Bilirubin 0.2 MG/DL (0.0-0.8) Result Diagram: 09/20/1744409/20/17444 (1) HTN (hypertension) Plan: controlled (2) CAD (coronary artery disease) Plan: (3) S/P CABG x 2 Plan: ASA, plavix, hold on starting BB OOB, ambualte pulm toleting CM to eval for rehab / SNF at discharge (4) Ischemic cardiomyopathy Plan: EF 35% will need to be on tamiko after surgery (5) Hx of colostomy (6) Iron deficiency anemia Plan: start iron replacement (7) NSTEMI (non-ST elevated myocardial infarction) Milena Broussard MD Sep 20, 2017 10:52
[2017-09-20] MEDS: SENNOSIDES 8.6 MG TAB PO SCH (21:00)
[2017-09-20] MEDS: ACETAMINOPHEN/HYDROcodone 325 MG/10 MG TAB PO PRN (21:10)
--- NOTE | 2017-09-20 21:55 | RADRPT ---
EXAM DATE/TIME: 09/20/2017 20:12 [facility] COMPARISON: No previous studies available for comparison. EXTERNAL COMPARISON : [facility], CT ABDOMEN & PELVIS W/ & W/O CONTRAST, March 20, 2015 INDICATIONS : Increased lab values. MEDICAL HISTORY : Myocardial infarction. Congestive heart failure. Hypercholesterolemia. HTN. Chest pain. Dyspnea. Lj jeremías ulcer. GERD. Colon cancer. Fibromyalgia. Arthritis. MRSA. Anticoagulant therapy, Plavix. SURGICAL HISTORY : Coronary artery stent. Appendectomy. Hysterectomy. Bilateral cataracts. CABG x4. Cardiac cath. Colost mitchell and reversal. Chemotherapy. Radiation therapy. Blood transfusions. ENCOUNTER: Initial ACUITY: 1 day PAIN SCORE: 0/10 LOCATION: Bilateral upper quadrant MEASUREMENTS: LIVER: 16.4 cm length COMMON DUCT: 4 mm RIGHT KIDNEY: 10.3 x 3.3 x 3.7 cm SPLEEN: 10.6 cm length FINDINGS: LIVER: Normal echotexture without focal lesion or ductal dilatation. COMMON DUCT: No intraluminal mass or stone visualized. GALLBLADDER: Contains no stones, demonstrates no wall thickening or pericholecystic fluid. PANCREAS: The visualized portions are within normal limits. RIGHT KIDNEY: No hydronephrosis, stone or mass. SPLEEN: No focal lesion. CONCLUSION: 1. No acute findings. Incidental note made of of bilateral pleural effusions Cody Todd MD on September 20, 2017 at 21:51 Board Certified Radiologist. This report was verified electronically.
[2017-09-21] VITALS (12 sets, daily range): BP systolic 128–136; BP diastolic 60–73; PULSE 78–97; RESP 16–18; TEMP 97.8–98.6; O2SAT 96–98
[2017-09-21] MEDS: ACETAMINOPHEN/HYDROcodone 325 MG/10 MG TAB PO PRN ×2 (02:44→06:52)
[2017-09-21] MEDS: MORPHINE SULFATE 2 MG/ML INJ IV PUSH PRN ×2 (02:44→06:56)
[2017-09-21 05:51] LABS: HEMATOCRIT 24.1 % (35.0-46.0); HEMOGLOBIN 8.3 GM/DL (11.6-15.3); MEAN CELL VOLUME 89.2 FL (80.0-100.0); MEAN CORPUSCULAR HEMOGLOBIN 30.6 PG (27.0-34.0); MEAN CORPUSCULAR HGB CONC 34.3 % (32.0-36.0); MEAN PLATELET VOLUME 10.1 FL (7.0-11.0); PLATELET COUNT 115 TH/MM3 (150-450); RED CELL DISTRIBUTION WIDTH 17.2 % (11.6-17.2); WHITE BLOOD COUNT 4.5 TH/MM3 (4.0-11.0)
[2017-09-21] MEDS: PANTOPRAZOLE SOD 40 MG DELAYED RELEASE TAB PO SCH (06:00)
[2017-09-21 06:15] LABS: ALBUMIN 2.3 GM/DL (3.4-5.0); BICARBONATE 28.2 MEQ/L (21.0-32.0); MAGNESIUM 1.8 MG/DL (1.5-2.5)
[2017-09-21] MEDS: INSULIN ASPART SUPPLEMENTAL SCALE SQ SCH ×2 (08:00→12:00)
[2017-09-21] MEDS: POLYETHYLENE GLYCOL 17 GM PKG PO SCH ×2 (09:00→09:39)
[2017-09-21] MEDS ORDERED: METOPROLOL TARTRATE 25 MG TAB PO SCH (09:00)
[2017-09-21] MEDS: MAGNESIUM HYDROXIDE SUSP 30 ML CUP PO SCH ×2 (09:00→09:39)
[2017-09-21 09:14] LABS: CREATININE 0.61 MG/DL (0.50-1.00); DIRECT BILIRUBIN ADULT 0.1 MG/DL (0.0-0.2)
[2017-09-21 09:17] LABS: INDIRECT BILIRUBIN 0.3 MG/DL (0.0-0.8); TOTAL BILIRUBIN ADULT 0.4 MG/DL (0.2-1.0); TOTAL PROTEIN 5.5 GM/DL (6.4-8.2)
[2017-09-21] MEDS: MULTIVITAMINS/MINERALS THERAPEUTIC TAB PO SCH (09:37)
[2017-09-21] MEDS: DOCUSATE SODIUM 100 MG CAP PO SCH (09:37)
[2017-09-21] MEDS: CLOPIDOGREL 75 MG TAB PO SCH (09:37)
[2017-09-21] MEDS: ASPIRIN 81 MG CHEW TAB PO SCH (09:37)
[2017-09-21] MEDS: SODIUM CHLORIDE 0.9% FLUSH 10 ML FLUSH IV FLUSH SCH (09:39)
--- NOTE | 2017-09-21 11:16 | PD.CAR.PN ---
CVT Progress Note Subjective/Hospital Course: 76-year-old female with longstanding history of coronary artery disease. She has had a coronary artery bypass grafting approximately 17 years ago in [facility] in [place]. She has had multiple catheterization procedures since. She had stenting of the diagonal branch by Dr. Paul in 2011, stenting of the mid-circumflex artery which closed and then had to be reopened. Her last catheterization was in June of [address] Todd. Ejection fraction at that time was 40% and at the time the LAD had mid disease of 40% and some in- stent diagonal disease. The circumflex was diffusely diseased with a patent stent in the AV groove. She was felt to be treated medically at that point; however, she started having increasing chest pain for the last 10 days with sweating substernal left-sided chest discomfort with or without exertion. Troponins were negative but because of worsening chest pain she came to the emergency room to be admitted. She underwent cardiac catheterization by Dr. Chery which showed an ejection fraction of 25%, left main disease of 30, approximate LAD ostial 40, mid-distal LAD 60%, diagonal 80, the obtuse marginal 99, the RCA was totally occluded with iizp-rj-wzcew collaterals. The IFR of the LAD was 0.87, the left circumflex was 0.98 and the OM was 0.98. We were consulted to evaluate for re-do coronary artery bypass grafting to the LAD, diagonal and RCA. EF 35% PAST MEDICAL HISTORY: Hypertension, Hyperlipidemia, Statin intolerance, Previous iron deficiency anemia. Multiple bowl surgeries causing a component of the iron deficiency anemia, gastroparesis, Recurrent genital herpes. History of previous stomach cancer, Uterine cancer. PAST SURGICAL HISTORY: Hysterectomy, Last surgery was by Dr. Carcamo who did an exploratory lap with extensive lysis of adhesions, segmental colon resection , low pelvic anastomosis, segmental transverse colon resection, primary anastomosis October of 2016, History of colostomy status post Shaun resection , History of gastric resection 09/11 no chest pain last pm await PFT and CT chest results 09/14 had some chest pain over the weekend, now resolved, received some morphine last pm timing for surgery per Dr Broussard/ possible on low grade temp/ pt needs to be OOB, use IS recheck UA 09/15 no more fevers for surgery on 09/16 repeat ua noted , + leukoestrase , few bacteria ( contaminated) will change to cipro IV until culture returns for surgery in am 09/17 surgery: Redo Off-pump Coronary Artery Bypass Grafting x 2 with Left Internal Mammary Artery (BUSTAMANTE) to the Left Anterior Descending (LAD), reverse saphenous vein graft to the Diagonal 1 (D1), Myocardial Lysis of Adhesions Left Leg Endoscopic Vein [place] extubated after surgery, crystalloid 3200cc, 480cc cell saver, 1000cc EBL 09/18 On nasal cannula remains NSR, BP labile this am , additional IV fluids given pain controlled leave chest tubes in transfer to stepdown unit on ASA, plavix, hold on BB with labile BP, no amiodarone intolerant to statins 09/19 Doing well D/C CT today Monitor Hgb and Platelets Discharge planning 09/20 Doing well Platelets better. Hgb stable Discharge in am 09/21 HGB 8.3/ stable/ PLT 115 no statin , tylenol dc 2/2 elevated LFT. hep panel neg liver US unremarkable LFT slowly trending up / dc when LFT improvement noted Objective: GENERAL: A&O SKIN: Warm and dry. prevena dressing to chest , incision intact left leg HEAD: Normocephalic. EYES: No scleral icterus. No injection or drainage. NECK: Supple, trachea midline. No JVD or lymphadenopathy. CARDIOVASCULAR: Regular rate and rhythm without murmurs, gallops, or rubs. RESPIRATORY: Breath sounds equal bilaterally. No accessory muscle use. GASTROINTESTINAL: Abdomen soft, non-tender, nondistended. MUSCULOSKELETAL: No cyanosis, or edema. BACK: Nontender without obvious deformity. No CVA tenderness. Vital Signs Date Time Temp Pulse Resp B/P (MAP) Pulse Ox O2 Delivery O2 Flow Rate FiO2 09/21/17 08:00 97 Nasal Cannula 1.50 09/21/17 07:45 84 09/21/17 07:45 94 Room Air 09/21/17 06:02 86 09/21/17 05:00 86 09/21/17 04:00 86 09/21/17 03:21 98 Nasal Cannula 2.00 09/21/17 03:21 98.6 97 16 136/63 (87) 98 09/21/17 03:00 97 09/21/17 02:00 89 09/21/17 01:00 85 09/21/17 00:00 93 09/20/17 23:09 93 Nasal Cannula 2.00 09/20/17 23:09 98.9 93 16 127/56 (79) 99 09/20/17 23:00 92 09/20/17 22:00 98 09/20/17 21:00 100 09/20/17 20:01 95 Nasal Cannula 2.00 09/20/17 20:00 92 09/20/17 19:17 93 Nasal Cannula 2.00 09/20/17 19:17 100.0 90 17 154/72 (99) 93 09/20/17 19:00 90 09/20/17 18:43 19 09/20/17 18:00 108 09/20/17 17:00 84 09/20/17 16:00 89 09/20/17 15:00 97.9 86 19 133/64 (87) 92 09/20/17 15:00 92 Room Air 09/20/17 15:00 90 09/20/17 13:00 83 09/20/17 12:00 75 Labs: Laboratory Tests Test 09/21/17 04:39 White Blood Count 4.5 TH/MM3 (4.0-11.0) Red Blood Count 2.70 MIL/MM3 (4.00-5.30) Hemoglobin 8.3 GM/DL (11.6-15.3) Hematocrit 24.1 % (35.0-46.0) Mean Corpuscular Volume 89.2 FL (80.0-100.0) Mean Corpuscular Hemoglobin 30.6 PG (27.0-34.0) Mean Corpuscular Hemoglobin Concent 34.3 % (32.0-36.0) Red Cell Distribution Width 17.2 % (11.6-17.2) Platelet Count 115 TH/MM3 (150-450) Mean Platelet Volume 10.1 FL (7.0-11.0) Blood Urea Nitrogen 15 MG/DL (7-18) Creatinine 0.61 MG/DL (0.50-1.00) Random Glucose 109 MG/DL (74-106) Total Protein 5.5 GM/DL (6.4-8.2) Albumin 2.3 GM/DL (3.4-5.0) Calcium Level 8.0 MG/DL (8.5-10.1) Magnesium Level 1.8 MG/DL (1.5-2.5) Alkaline Phosphatase 378 U/L (45-117) Aspartate Amino Transf (AST/SGOT) 136 U/L (15-37) Alanine Aminotransferase (ALT/SGPT) 194 U/L (10-53) Total Bilirubin 0.4 MG/DL (0.2-1.0) Direct Bilirubin 0.1 MG/DL (0.0-0.2) Sodium Level 137 MEQ/L (136-145) Potassium Level 4.2 MEQ/L (3.5-5.1) Chloride Level 100 MEQ/L (98-107) Carbon Dioxide Level 28.2 MEQ/L (21.0-32.0) Anion Gap 9 MEQ/L (5-15) Estimat Glomerular Filtration Rate 95 ML/MIN (>89) Indirect Bilirubin 0.3 MG/DL (0.0-0.8) Result Diagram: 09/21/179 09/21/17 0439 (1) HTN (hypertension) Plan: controlled (2) CAD (coronary artery disease) Plan: (3) S/P CABG x 2 Plan: ASA, plavix, OOB, ambualte pulm toleting CM to eval for rehab / SNF at discharge dc when LFT's improved (4) Ischemic cardiomyopathy Plan: EF 35% will need to be on tamiko after surgery (5) Hx of colostomy (6) Iron deficiency anemia Plan: start iron replacement / pt refuses (7) NSTEMI (non-ST elevated myocardial infarction) (8) Elevated LFTs Plan: HEP panel neg liver US unremarkable will Danette Mir Sep 21, 2017 11:16
[2017-09-21] MEDS ORDERED: OXYC-392 PO (14:55)
[2017-09-21] MEDS ORDERED: METO25TA3 PO (14:55)
[2017-09-21] MEDS ORDERED: ALPR.25 PO (14:55)
[2017-09-21] MEDS ORDERED: ASPI81 PO (14:55)
[2017-09-21] MEDS ORDERED: DOCU1CAP39 PO (14:55)
[2017-09-21] MEDS ORDERED: PLAV75TA29 PO (14:55)
--- NOTE | 2017-09-21 14:58 | HHI.DCPOC ---
Discharge Care Plan Diagnosis: (1) Thrombocytopenia (2) Elevated LFTs (3) NSTEMI (non-ST elevated myocardial infarction) (4) Iron deficiency anemia (5) Ischemic cardiomyopathy (6) CAD (coronary artery disease) (7) Chest pain (8) S/P CABG x 2 Goals to Promote Your Health * To prevent worsening of your condition and complications * To maintain your health at the optimal level Directions to Meet Your Goals Take your medications as prescribed Follow your dietary instruction Follow activity as directed Keep your appointments as scheduled Take your immunizations and boosters as scheduled If your symptoms worsen call your PCP, if no PCP go to Urgent Care Center or Emergency Room Smoking is Dangerous to Your Health. Avoid second hand smoke Call the 24-hour hour crisis hotline for domestic abuse at Rene Ngo DO Sep 21, 2017 14:58
--- NOTE | 2017-09-21 15:10 | HHI.DS ---
Discharge Summary Admission Date Sep 10, 2017 at 14:41 Discharge Date: Sep 21, 2017 Admitting Diagnosis Chest pain/syncope (1) Chest pain ICD Code: R07.9 - Chest pain Diagnosis: Principal Status: Acute (2) S/P CABG x 2 ICD Code: Z95.1 - Presence of aortocoronary bypass graft Diagnosis: Principal (3) Iron deficiency anemia ICD Code: D50.9 - Iron deficiency anemia, unspecified Diagnosis: Principal Status: Chronic (4) Elevated LFTs ICD Code: R79.89 - Other specified abnormal findings of blood chemistry Diagnosis: Principal (5) Thrombocytopenia ICD Code: D69.6 - Thrombocytopenia, unspecified Diagnosis: Principal (6) NSTEMI (non-ST elevated myocardial infarction) ICD Code: I21.4 - Non-ST elevation (NSTEMI) myocardial infarction Status: Acute (7) Ischemic cardiomyopathy ICD Code: I25.5 - Ischemic cardiomyopathy Status: Acute (8) CAD (coronary artery disease) ICD Code: I25.10 - CAD (coronary artery disease) Status: Acute Procedures Cardiac catheterization CABG Brief History - From Admission 76-year-old female with past medical history significant for hypertension, CAD with history of KS and stents, hyperlipidemia, CHF (echo from 02/26/14 showed an EF of 40-45%), GERD and anxiety presents to the emergency department for evaluation of chest pain and shortness of breath. The patient reports that approximately 10 days ago she started having "really bad chest pain" with associated weakness and fatigue. She states that she spent the past 5 days in bed which helped with her symptoms however she still had intermittent chest pain during this time. She states that yesterday her chest pain was worse and had associated nausea and for near syncopal episodes with dizziness. She has baseline dyspnea on exertion which she states is worse and has been using her prn home O2. She denies fever/chills. Denies emesis or diarrhea. No lateralizing signs/symptoms. CBC/BMP: 09/21/17 0439 09/21/17 0439 Significant Findings Laboratory Tests Test 09/19/17 04:45 09/20/17 04:45 09/20/17 16:59 09/21/17 04:39 Red Blood Count 2.48 MIL/MM3 (4.00-5.30) 2.44 MIL/MM3 (4.00-5.30) 2.70 MIL/MM3 (4.00-5.30) Hemoglobin 7.6 GM/DL (11.6-15.3) 7.4 GM/DL (11.6-15.3) 8.3 GM/DL (11.6-15.3) Hematocrit 22.4 % (35.0-46.0) 22.0 % (35.0-46.0) 24.1 % (35.0-46.0) Red Cell Distribution Width 17.7 % (11.6-17.2) 17.4 % (11.6-17.2) Platelet Count 89 TH/MM3 (150-450) 100 TH/MM3 (150-450) 115 TH/MM3 (150-450) Monocytes (%) (Auto) 11.0 % (0.0-8.0) Platelet Estimate LOW (NORMAL) Basophilic Stippling FAINT (NORMAL) Acanthocytes OCC (NORMAL) Blood Urea Nitrogen 23 MG/DL (7-18) Total Protein 4.8 GM/DL (6.4-8.2) 4.9 GM/DL (6.4-8.2) 5.5 GM/DL (6.4-8.2) Albumin 2.3 GM/DL (3.4-5.0) 2.3 GM/DL (3.4-5.0) 2.3 GM/DL (3.4-5.0) Calcium Level 7.8 MG/DL (8.5-10.1) 7.9 MG/DL (8.5-10.1) 8.0 MG/DL (8.5-10.1) Alkaline Phosphatase 133 U/L (45-117) 223 U/L (45-117) 378 U/L (45-117) Aspartate Amino Transf (AST/SGOT) 82 U/L (15-37) 123 U/L (15-37) 136 U/L (15-37) Alanine Aminotransferase (ALT/SGPT) 117 U/L (10-53) 135 U/L (10-53) 194 U/L (10-53) Estimat Glomerular Filtration Rate 74 ML/MIN (>89) Iron Level 34 MCG/DL (50-170) Percent Iron Saturation 12.6 % (20-50) Random Glucose 109 MG/DL (74-106) 109 MG/DL (74-106) Imaging Last Impressions Liver Ultrasound 09/20/17 0000 Signed Impressions: Service Date/Time: Wednesday, September 20, 2017 20:12 - CONCLUSION: 1. No acute findings. Incidental note made of of bilateral pleural effusions Cody Todd MD Chest X-Ray 09/18/17 0500 Signed Impressions: Service Date/Time: Monday, September 18, 2017 04:23 - CONCLUSION: 1. Developing atelectatic changes of the left hemidiaphragm. 2. Interval removal of the endotracheal and nasogastric tubes. Jelani Gloria MD Lower Extremity Ultrasound 09/10/17 0000 Signed Impressions: Service Date/Time: September 17:08 - CONCLUSION: 1. Lower extremity venous mapping, as above. Maulik Fischer MD Chest CT 09/10/17 0000 Signed Impressions: Service Date/Time: Monday, September 11, 2017 20:12 - CONCLUSION: No focal infiltrates seen. Mild linear scarring in both lung bases. Abundio Mccoy MD Carotid Artery Ultrasound 09/08/17 0000 Signed Impressions: Service Date/Time: Friday, September 08, 2017 22:00 - CONCLUSION: Mild plaque formation in the carotid bulb bilaterally with hemodynamic parameters characteristic of less than 50%% stenosis. Abundio Mccoy MD PE at Discharge GENERAL: Resting in bed. SKIN: Port in place - right chest wall. Pale. PULMONARY: CTAB. No W/R/R. CARDIAC: Regular rate and rhythm. GI: Abdomen soft, nontender. EXTREMITIES: No edema. NEURO: Awake and alert. PSYCH: Mood and affect appropriate. Pt update on day of discharge The pt wanted to know where she would be discharged to. She said she had some shortness of breath when ambulating with physical therapy and her oxygen saturation dropped. She denied any other acute complaints. Discussed with nursing. Hospital Course Severe CAD The patient has had bypass surgery in the past. Cardiology was consulted. Multivessel coronary disease noted on catheterization. EF noted to be 25%. Cardiothoracic surgery was consulted. LDL was elevated but the pt has a documented allergy to statins and had elevated LFTs so a statin was not started. A1c 6%. S/p CABG 09/17. She will continue a cardiac regimen including Lopressor, ASA, Plavix and an ACEi. We encouraged ambulation with physical therapy. She received incentive spirometry. She was monitored on telemetry. She received pain control with a bowel regimen. She will follow up with cardiology and cardiothoracic surgery as an outpt. Acute respiratory failure On vent following surgery, now extubated. Currently breathing comfortably on nasal cannula. She received nebs and oxygen as needed. We encouraged incentive spirometry and ambulation. She will continue using nasal cannula as needed. JULIO C on CKD s Nonoliguric. Creatinine improved. We will discharge the pt on an ACEi. UTI UA indicative of infection. Cultures negative. Antibiotics were discontinued. Elevated LFTs Hepatitis profile negative. Liver US unremarkable. Thought to be secondary to hepatic congestion. She will continue Lasix. She will have a repeat CMP in 3-5 days. She will be referred to gastroenterology. Anemia/ thrombocytopenia Exacerbated by surgery. The pt says she has a history of being on Venofer and has a history of low platelets. Counts have remained stable. She will have a repeat CBC in 3-5 days. The pt will follow up with hematology upon discharge. Pt Condition on Discharge: Stable Discharge Disposition: Discharge to SNF Discharge Time: > 30 minutes Discharge Instructions DIET: Follow Instructions for: Heart Healthy Diet Activities you can perform: Weight Bearing as Sukumar Follow up Referrals: Cardiology - 4 Weeks @ [facility] with Manoj Chery MD [facility] Address: [address] [place], [place] [id number] Phone: Gastroenterology - 1 Week with Monica Neri MD Oncology/Hematology - 2 Weeks PCP Follow-up - 10 Days with Do Bindu Velasco MD Surgical - 2 Weeks with Danette Jaffe New Orders: CBC NO DIFF - 3-5 Days COMP MET PROF (CMP) - 3-5 Days New Medications: Lisinopril (Lisinopril) 2.5 Mg Tab 2.5 MG PO DAILY, #30 TAB 0 Refills Alprazolam (Xanax) 0.25 Mg Tab 0.125 MG PO Q4H PRN for anxiety, #14 TAB Aspirin (Tgt Aspirin) 81 Mg Chw 81 MG PO DAILY for Heart, #30 EA Clopidogrel (Plavix) 75 Mg Tab 75 MG PO DAILY for Heart, #30 TAB Docusate Sodium (Dok) 100 Mg Cap 100 MG PO BID for Constipation, #60 CAP Metoprolol Tartrate (Metoprolol Tartrate) 25 Mg Tab 25 MG PO BID for Heart, #60 TAB Oxycodone (Oxycodone) 5 Mg Tab 5 MG PO Q6H PRN for PAIN SCALE 1 TO 10, #20 TAB Continued Medications: Furosemide (Furosemide) 20 Mg Tab 20 MG PO DAILY PRN for SWELLING, #30 TAB 0 Refills Omeprazole (Omeprazole) 20 Mg Tab 20 MG PO DAILY, #30 TAB 0 Refills Discontinued Medications: Isosorbide Mononitrate ER (Isosorbide Mononitrate ER) 60 Mg Tab 60 MG PO BID for Prevent Chest Pain, #30 TAB 0 Refills Metoprolol Succinate ER 24 HR (Metoprolol Succinate ER 24 HR) 50 Mg Tab 50 MG PO DAILY, #30 TAB 0 Refills Ranolazine ER 12 HR (Ranexa ER 12 HR) 1,000 Mg Tab 1000 MG PO BID for Chest Pain, #60 TAB 0 Refills Rene Ngo DO Sep 21, 2017 15:10
[2017-09-21] MEDS ORDERED: LISI2.5T3 PO (15:12)
== END 2017-09-21 16:41 | DRG 233 ==
LOC: NEPC 15:09 → NEDA 19:13 → NEPGCP 20:28 → HCIS 09-10 09:27 → OBSVTOIN 09-10 14:41 → HCPC 09-10 17:40 → HCIS 09-17 07:25 → HCVI 09-17 13:40 → HCPC 09-18 11:08
PROVIDERS: ADMIT Hospitalist; ATTEND Hospitalist
PROC: 4A023N7 Measurement of Cardiac Sampling and Pressure, Left Heart, Percutaneous Approach (ICD-10-PCS; 2017-09-10)
PROC: 4A033BC Measurement of Arterial Pressure, Coronary, Percutaneous Approach (ICD-10-PCS; 2017-09-10)
PROC: B2111ZZ Fluoroscopy of Multiple Coronary Arteries using Low Osmolar Contrast (ICD-10-PCS; 2017-09-10)
PROC: B2151ZZ Fluoroscopy of Left Heart using Low Osmolar Contrast (ICD-10-PCS; 2017-09-10)
PROC: 021009W Bypass Coronary Artery, One Artery from Aorta with Autologous Venous Tissue, Open Approach (ICD-10-PCS; 2017-09-17)
PROC: 06BQ4ZZ Excision of Left Saphenous Vein, Percutaneous Endoscopic Approach (ICD-10-PCS; 2017-09-17)
PROC: 5A1935Z Respiratory Ventilation, Less than 24 Consecutive Hours (ICD-10-PCS; 2017-09-17)
PROC: 02100Z9 Bypass Coronary Artery, One Artery from Left Internal Mammary, Open Approach (ICD-10-PCS; principal; 2017-09-17 07:25)
DX: I21.4 Non-ST elevation (NSTEMI) myocardial infarction (principal); J96.20 Acute and chronic respiratory failure, unspecified whether with hypoxia or hypercapnia; N17.9 Acute kidney failure, unspecified; I25.82 Chronic total occlusion of coronary artery; I13.0 Hypertensive heart and chronic kidney disease with heart failure and stage 1 through stage 4 chronic kidney disease, or unspecified chronic kidney disease; I50.9 Heart failure, unspecified; D69.6 Thrombocytopenia, unspecified; T82.855A Stenosis of coronary artery stent, initial encounter; I25.110 Atherosclerotic heart disease of native coronary artery with unstable angina pectoris; K31.84 Gastroparesis; Z99.81 Dependence on supplemental oxygen; R55 Syncope and collapse; M19.90 Unspecified osteoarthritis, unspecified site; M79.7 Fibromyalgia; Z93.3 Colostomy status; Z95.1 Presence of aortocoronary bypass graft; Z95.5 Presence of coronary angioplasty implant and graft; Z90.710 Acquired absence of both cervix and uterus; N18.2 Chronic kidney disease, stage 2 (mild); Z85.028 Personal history of other malignant neoplasm of stomach; I25.2 Old myocardial infarction; E78.5 Hyperlipidemia, unspecified; K21.9 Gastro-esophageal reflux disease without esophagitis; F41.9 Anxiety disorder, unspecified; Z82.49 Family history of ischemic heart disease and other diseases of the circulatory system; R63.4 Abnormal weight loss; Z85.42 Personal history of malignant neoplasm of other parts of uterus; Z87.891 Personal history of nicotine dependence; Z90.3 Acquired absence of stomach [part of]; Y71.1 Therapeutic (nonsurgical) and rehabilitative cardiovascular devices associated with adverse incidents; I25.5 Ischemic cardiomyopathy; D50.9 Iron deficiency anemia, unspecified; R79.89 Other specified abnormal findings of blood chemistry
CPT/HCPCS: 71045; 71046; 71250; 76705; 76937; 80048; 80053; 80061; 80074; 80076; 81001; 82550; 82607; 82728; 82746; 82948; 83036; 83540; 83550; 83690; 83735; 83880; 84484; 85025; 85027; 85347; 85610; 85730; 86850; 86900; 86901; 86902; 86920; 86922; 87086; 87641; 93005; 93306; 93318; 93458; 93571; 93572; 93880; 93970; 93998; 94002; 94010; 94150; 94640; 94664; 94667; 94668; 96372; 99152; 99153; C1768; C1769; C1887; C1893; C9248; G0378; G8987-GP; G8988-GP; J0131; J0360; J0583; J0690; J0696; J0744; J1265; J1642; J1644; J1815; J1817; J1885; J2250; J2270; J2370; J2405; J2440; J2720; J2930; J3010; J3370; J3475; J3480; J7030; J7050; J7120; Q0177; Q9967

== ENCOUNTER 2017-10-14 14:56 | Observation (INO) | payer OTHER ==
[~2017-10-14] VITALS: Ht 177.8 cm; Wt 62.3 kg
[~2017-10-14 14:56] MED LIST changes: +ALPR.25 PO; +ASPI81 PO; -CLOP75TA PO; +DOCU1CAP39 PO; -GABA300C5 PO; -ISOS60TA PO; +LISI2.5T3 PO; -METO1TAB9 PO; +METO25TA3 PO; +OXYC-392 PO; +PLAV75TA29 PO; -RANE1000 PO
[2017-10-14 15:10] VITALS: BP 166/117; PULSE 112; RESP 20; TEMP 98.1; O2SAT 100
[2017-10-14 15:15] VITALS: BP 185/93; PULSE 102; RESP 20; TEMP 98.1; O2SAT 100
[2017-10-14] MEDS ORDERED: METR250T23 PO (15:27)
[2017-10-14] MEDS ORDERED: FERR325T18 PO (15:27)
[2017-10-14] MEDS ORDERED: MULTTAB67 PO (15:27)
[2017-10-14] MEDS ORDERED: HYDR-3516 PO (15:27)
[2017-10-14] MEDS ORDERED: ZOFR4TAB PO (15:27)
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
[2017-10-14] MEDS ORDERED: NITROGLYCERIN 2% OINT 1 GM PACKET TOPICAL ONE (15:30)
[2017-10-14] MEDS ORDERED: ISOS10TA3 PO (15:32)
[2017-10-14] MEDS ORDERED: [UNRECOGNIZED DRUG - OTHER] (15:32)
[2017-10-14] MEDS ORDERED: CHOL4POW3 PO (15:32)
[2017-10-14 15:33] VITALS: BP 185/93; PULSE 101; RESP 20; O2SAT 100
[2017-10-14 16:27] VITALS: BP 190/100; PULSE 102; RESP 20; O2SAT 100
--- NOTE | 2017-10-14 16:32 | RADRPT ---
EXAM DATE/TIME: 10/14/2017 15:25 [facility] COMPARISON: CHEST SINGLE AP, September 18, 2017, 4:23. INDICATIONS : Chest pain. MEDICAL HISTORY : Myocardial infarction. Congestive heart failure. Hypertension. colon cancer, MRSA SURGICAL HISTORY : CABG. Coronary artery stent. Colostomy and reversal, spine stimulator ENCOUNTER: Initial ACUITY: 1 day PAIN SCORE: 10/10 LOCATION: Bilateral chest FINDINGS: A single view of the chest demonstrates the lungs to be symmetrically aerated without evidence of mas s, infiltrate or effusion. [id number] and spinal simulator noted. The cardiomediastinal contours are unremarkable. Osseous structures are intact. CONCLUSION: No acute disease. Kade Carlton MD FACR on October 14, 2017 at 16:29 Board Certified Radiologist. This report was verified electronically.
[2017-10-14 16:53] LABS: AUTOMATED NEUTROPHIL # 2.5 TH/MM3 (1.8-7.7); BASOPHIL % 0.4 % (0.0-2.0); EOSINOPHIL % 0.8 % (0.0-4.0); HEMATOCRIT 24.5 % (35.0-46.0); HEMOGLOBIN 8.4 GM/DL (11.6-15.3); LYMPH % 28.6 % (9.0-44.0); LYMPHOCYTE # 1.2 TH/MM3 (1.0-4.8); MEAN CELL VOLUME 84.8 FL (80.0-100.0); MEAN CORPUSCULAR HGB CONC 34.2 % (32.0-36.0); MEAN PLATELET VOLUME 8.3 FL (7.0-11.0); MONO % 12.7 % (0.0-8.0); MONOCYTE # 0.5 TH/MM3 (0-0.9); NEUT % 57.5 % (16.0-70.0); PLATELET COUNT 225 TH/MM3 (150-450); RED BLOOD COUNT 2.89 MIL/MM3 (4.00-5.30); RED CELL DISTRIBUTION WIDTH 17.7 % (11.6-17.2); WHITE BLOOD COUNT 4.3 TH/MM3 (4.0-11.0)
[2017-10-14 17:05] LABS: ALBUMIN 2.9 GM/DL (3.4-5.0); ALT (GPT) 38 U/L (10-53); AST (GOT) 30 U/L (15-37); BICARBONATE 24.4 MEQ/L (21.0-32.0); BLOOD UREA NITROGEN 17 MG/DL (7-18); CALCIUM 7.6 MG/DL (8.5-10.1); CHLORIDE 109 MEQ/L (98-107); GLOMERULAR FILTRATION RATE 120 ML/MIN (>89); GLUCOSE,RANDOM 89 MG/DL (74-106); SODIUM (NA) 140 MEQ/L (136-145)
[2017-10-14 17:08] LABS: ALKALINE PHOSPHATASE 182 U/L (45-117); TOTAL BILIRUBIN ADULT 0.4 MG/DL (0.2-1.0); TROPONIN I LESS THAN 0.02 NG/ML (0.02-0.05)
[2017-10-14] MEDS ORDERED: ACETAMINOPHEN 325 MG TAB PO ONE (18:15)
[2017-10-14 18:16] LABS: PROTHROMBIN TIME - PATIENT 10.4 SEC (9.8-11.6)
[2017-10-14] MEDS ORDERED: SODIUM CHLORIDE 0.9% FLUSH 10 ML FLUSH IV FLUSH PRN (18:30)
[2017-10-14] MEDS ORDERED: NALOXONE HCL 0.4 MG/ML AMP IV PUSH PRN (18:30)
[2017-10-14 20:00] VITALS: BP 155/77; PULSE 98; RESP 16; TEMP 97.6; O2SAT 99
--- NOTE | 2017-10-14 21:10 | HHI.HP ---
[facility] Service [facility] Primary Care Physician Bindu Velasco Do, MD Admission Diagnosis Chest pain Diagnoses: Travel History International Travel<30 Days: No Contact w/Intl Traveler <30 Da: No Traveled to Known Affected Are: No History of Present Illness 77-year-old female with a past medical history significant for CAD status post multiple MIs, hypertension, hyperlipidemia and short gut syndrome who is status post redo CABG 2 on 09/17/17 sensitive the emergency department for evaluation of chest pain and shortness of breath. The patient was released from rehabilitation on Thursday. She reports that on Thursday she felt lightheaded however denies any syncopal episodes. She went to see her primary care physician yesterday who wanted her to go to the ER because "her heart was working too hard." The patient was also noted to be hypotensive in her PCPs office although she cannot remember what her blood pressure was. The patient refused to come to the emergency department yesterday and today had chest pain that radiated to her back and left arm with accompanying abdominal pain. The patient's home health care nurse called EMS. The patient reports that her chest pain/pressure remains present although it is somewhat improved with oxygen. She states she does wear 2 L home O2 on a when necessary basis. The patient denies any nausea/vomiting. Has persistent, chronic diarrhea. No lateralizing signs/symptoms. Review of Systems Except as stated in HPI: all other systems reviewed are Neg Past Family Social History Past Medical History Hypertension CAD with history of OR and stents Hyperlipidemia GERD Anxiety CHF History of stomach cancer Past Surgical History Colostomy with reversal Cardiac stents 12 CABG 4 in 1998, redo CABG 2 on 09/17/17 L345 fusion Partial gastrectomy Lysis of adhesions Appendectomy Hysterectomy Reported Medications Reported Meds & Active Scripts Active Lisinopril 2.5 Mg Tab 2.5 Mg PO DAILY Dok (Docusate Sodium) 100 Mg Cap 100 Mg PO BID Xanax (Alprazolam) 0.25 Mg Tab 0.125 Mg PO Q4H PRN Tgt Aspirin (Aspirin) 81 Mg Chw 81 Mg PO DAILY Metoprolol Tartrate 25 Mg Tab 25 Mg PO BID Plavix (Clopidogrel Bisulfate) 75 Mg Tab 75 Mg PO DAILY Reported Isosorbide Mononitrate 10 Mg Tab 25 Mg PO BID Take 2 doses 7 hours apart. Cholestyramine 4 Gm/Dose Powd 4 Gm PO Q6HR 1 level scoopful of powder contains 4 grams of cholestyramine. Acidophilus Probiotic Capsule (L. Acidophilus/Pectin, Warden) 100 Million Cell- 10 Mg Capsule Metronidazole 250 Mg Tab 250 Mg PO TID 7 Days Hydrocodone-Acetaminophen 5-325 mg Tab 1 Tab PO Q4H PRN Ferrous Sulfate 325 Mg (65 Mg Iron) Tablet 325 Mg PO TIDPC Multiple Vitamin 1 Tab 1 Tab PO DAILY Zofran (Ondansetron HCl) 4 Mg Tab 4 Mg PO Q6HR PRN Oxygen tank (Oxygen) 1 Ea Tank 2 Liter BILLIE.CANULA CONTINUOUS Oxygen Concentrator Portable Gaseous 2 L/min via Nasal Cannula Continuous For 99 months Omeprazole 20 Mg Tab 20 Mg PO DAILY Furosemide 20 Mg Tab 20 Mg PO DAILY PRN Allergies: Coded Allergies: amlodipine (Unverified Allergy, Severe, muscle weakness, 10/14/17) atorvastatin (Unverified Allergy, Severe, muscle weakness, 10/14/17) pravastatin (Unverified Allergy, Severe, muscle weakness, 10/14/17) simvastatin (Unverified Allergy, Severe, muscle weakness, 10/14/17) enoxaparin (Unverified Adverse Reaction, Mild, too much bleeding after the cardiac procedure, 10/14/17) has a power port and states that it is flushed with heparin all the time fentanyl (Verified Adverse Reaction, Mild, Nausea/Vomiting, 10/14/17) the patch Uncoded Allergies: STATINS (Adverse Reaction, Severe, 05/21/12) Family History Father with CAD Social History Denies alcohol, tobacco and illicit drugs. Physical Exam Vital Signs Vital Signs Date Time Temp Pulse Resp B/P (MAP) Pulse Ox O2 Delivery O2 Flow Rate FiO2 10/14/17 16:27 102 20 190/100 (130) 100 Nasal Cannula 2.50 10/14/17 15:33 101 20 185/93 (123) 100 Nasal Cannula 2.50 10/14/17 15:15 105 20 100 Nasal Cannula 2.50 10/14/17 15:15 98.1 102 20 185/93 (123) 100 Nasal Cannula 2.50 10/14/17 15:10 98.1 112 20 166/117 (150) 100 Physical Exam GENERAL: female sitting up in bed SKIN: No rashes, ecchymoses or lesions. Cool and dry. HEAD: Atraumatic. Normocephalic. No temporal or scalp tenderness. EYES: Pupils equal round and reactive. Extraocular motions intact. No scleral icterus. No injection or drainage. ENT: Nose without bleeding, purulent drainage or septal hematoma. Throat without erythema, tonsillar hypertrophy or exudate. Uvula midline. Airway patent. NECK: Trachea midline. No JVD or lymphadenopathy. Supple, nontender, no meningeal signs. CARDIOVASCULAR: Regular rate and rhythm without murmurs, gallops, or rubs. RESPIRATORY: Clear to auscultation. Breath sounds equal bilaterally. No wheezes , rales, or rhonchi. Use of accessory muscles. GASTROINTESTINAL: Abdomen soft, non-tender, nondistended. No hepato-splenomegaly , or palpable masses. No guarding. MUSCULOSKELETAL: Extremities without clubbing, cyanosis, or edema. No joint tenderness, effusion, or edema noted. No calf tenderness. NEUROLOGICAL: Awake and alert. Cranial nerves II through XII intact. Motor and sensory grossly within normal limits. Normal speech. Laboratory Laboratory Tests Test 10/14/17 15:50 10/14/17 17:35 White Blood Count 4.3 Red Blood Count 2.89 Hemoglobin 8.4 Hematocrit 24.5 Mean Corpuscular Volume 84.8 Mean Corpuscular Hemoglobin 29.0 Mean Corpuscular Hemoglobin Concent 34.2 Red Cell Distribution Width 17.7 Platelet Count 225 Mean Platelet Volume 8.3 Neutrophils (%) (Auto) 57.5 Lymphocytes (%) (Auto) 28.6 Monocytes (%) (Auto) 12.7 Eosinophils (%) (Auto) 0.8 Basophils (%) (Auto) 0.4 Neutrophils # (Auto) 2.5 Lymphocytes # (Auto) 1.2 Monocytes # (Auto) 0.5 Eosinophils # (Auto) 0.0 Basophils # (Auto) 0.0 CBC Comment DIFF FINAL Differential Comment Blood Urea Nitrogen 17 Creatinine 0.50 Random Glucose 89 Total Protein 6.0 Albumin 2.9 Calcium Level 7.6 Alkaline Phosphatase 182 Aspartate Amino Transf (AST/SGOT) 30 Alanine Aminotransferase (ALT/SGPT) 38 Total Bilirubin 0.4 Sodium Level 140 Potassium Level 3.7 Chloride Level 109 Carbon Dioxide Level 24.4 Anion Gap 7 Estimat Glomerular Filtration Rate 120 Total Creatine Kinase 37 Troponin I LESS THAN 0.02 B-Type Natriuretic Peptide 26 Prothrombin Time 10.4 Prothromb Time International Ratio 1.0 Activated Partial Thromboplast Time 26.0 Result Diagram: 10/14/17 1550 10/14/17 1550 Caprini VTE Risk Assessment Caprini VTE Risk Assessment: Mod/High Risk (score >= 2) Caprini Risk Assessment Model Point Value = 1 Point Value = 2 Point Value = 3 Point Value = 5 Age 41-60 Minor surgery BMI > 25 kg/m2 Swollen legs Varicose veins or History of unexplained or recurrent spontaneous Oral contraceptives or hormone replacement Sepsis (< 1 month) Serious lung disease, including pneumonia (< 1 month) Abnormal pulmonary function Acute myocardial infarction Congestive heart failure (< 1 month) History of inflammatory bowel disease Medical patient at bed rest Age 61-74 Arthroscopic surgery Major open surgery (> 45 min) Laparoscopic surgery (> 45 min) Malignancy Confined to bed (> 72 hours) Immobilizing plaster cast Central venous access Age >= 75 History of VTE Family history of VTE Factor V Leiden Prothrombin [id number] Lupus anticoagulant Anticardiolipin antibodies Elevated serum homocysteine Heparin-induced thrombocytopenia Other congenital or acquired thrombophilia Stroke (< 1 month) Elective arthroplasty Hip, pelvis, or leg fracture Acute spinal cord injury (< 1 month) Prophylaxis Regimen Total Risk Factor Score Risk Level Prophylaxis Regimen 0-1 Low Early ambulation 2 Moderate Order ONE of the following: *Sequential Compression Device (SCD) *Heparin 5000 units SQ BID 3-4 Higher Order ONE of the following medications: *Heparin 5000 units SQ TID *Enoxaparin/Lovenox 40 mg SQ daily (WT < 150 kg, CrCl > 30 mL/min) *Enoxaparin/Lovenox 30 mg SQ daily (WT < 150 kg, CrCl > 10-29 mL/min) *Enoxaparin/Lovenox 30 mg SQ BID (WT < 150 kg, CrCl > 30 mL/min) AND/OR *Sequential Compression Device (SCD) 5 or more Highest Order ONE of the following medications: *Heparin 5000 units SQ TID (Preferred with Epidurals) *Enoxaparin/Lovenox 40 mg SQ daily (WT < 150 kg, CrCl > 30 mL/min) *Enoxaparin/Lovenox 30 mg SQ daily (WT < 150 kg, CrCl > 10-29 mL/min) *Enoxaparin/Lovenox 30 mg SQ BID (WT < 150 kg, CrCl > 30 mL/min) AND *Sequential Compression Device (SCD) Assessment and Plan Assessment and Plan Assessment/plan: 1. Chest pain/status post CABG Initial troponin negative EKG without ST segment elevation/depressions, personally reviewed ACS rule out pending; serial troponins/EKG Echo pending to rule out pericardial effusion Patient's machine sign writer is Dr. Chery, consider cardiology consult if chest pain does not improve 2. Hypertension/hyperlipidemia/CAD Continue home medications 3. Anemia H&H 8.4/24.5 Baseline per patient Monitor CBC Continue iron supplementation FEN Nothing by mouth Electrolytes: Monitor and replete when necessary NS at 70 cc/hr Heparin Ciarra Vallecillo MD Oct 14, 2017 21:10
[2017-10-14] MEDS ORDERED: ALPRAZolam 0.25 MG TAB PO PRN (21:15)
[2017-10-14] MEDS ORDERED: FUROSEMIDE 20 MG TAB PO PRN (21:15)
[2017-10-14] MEDS ORDERED: IOHEXOL 350 MG/ML 10 ML VIAL (for RAD DIAG) IVCONTRAST ONE (21:54)
[2017-10-15] VITALS (13 sets, daily range): BP systolic 111–152; BP diastolic 58–83; PULSE 78–101; RESP 16–20; TEMP 97.3–98.2; O2SAT 96–100
[2017-10-15] MEDS: SODIUM CHLOR 0.9% 1000 ML INJ 1,000 ML IV SCH ×2 (00:01→11:33)
[2017-10-15] MEDS: MORPHINE SULFATE 2 MG/ML SYRINGE IV PUSH PRN ×2 (00:02→21:16)
[2017-10-15 01:07] LABS: TROPONIN I LESS THAN 0.02 NG/ML (0.02-0.05)
[2017-10-15 05:18] LABS: AUTOMATED NEUTROPHIL # 1.3 TH/MM3 (1.8-7.7); BASOPHIL % 0.9 % (0.0-2.0); EOSINOPHIL # 0.2 TH/MM3 (0-0.4); EOSINOPHIL % 4.6 % (0.0-4.0); HEMATOCRIT 24.5 % (35.0-46.0); HEMOGLOBIN 8.2 GM/DL (11.6-15.3); LYMPH % 44.5 % (9.0-44.0); LYMPHOCYTE # 1.5 TH/MM3 (1.0-4.8); MEAN CELL VOLUME 85.7 FL (80.0-100.0); MEAN CORPUSCULAR HEMOGLOBIN 28.6 PG (27.0-34.0); MEAN CORPUSCULAR HGB CONC 33.3 % (32.0-36.0); MEAN PLATELET VOLUME 8.2 FL (7.0-11.0); MONO % 12.7 % (0.0-8.0); MONOCYTE # 0.4 TH/MM3 (0-0.9); NEUT % 37.3 % (16.0-70.0); PLATELET COUNT 198 TH/MM3 (150-450); RED BLOOD COUNT 2.86 MIL/MM3 (4.00-5.30); WHITE BLOOD COUNT 3.4 TH/MM3 (4.0-11.0)
[2017-10-15 05:46] LABS: BICARBONATE 27.8 MEQ/L (21.0-32.0); BLOOD UREA NITROGEN 18 MG/DL (7-18); CALCIUM 8.4 MG/DL (8.5-10.1); CHLORIDE 108 MEQ/L (98-107); CREATININE 0.67 MG/DL (0.50-1.00); GLOMERULAR FILTRATION RATE 85 ML/MIN (>89); GLUCOSE,RANDOM 102 MG/DL (74-106); SODIUM (NA) 142 MEQ/L (136-145); TROPONIN I LESS THAN 0.02 NG/ML (0.02-0.05)
[2017-10-15] MEDS: CHOLESTYRAMINE 4 GM PACKET PO SCH ×5 (06:00→22:28)
[2017-10-15] MEDS: ISOSORBIDE MONONITRATE 20 MG TAB PO SCH ×2 (06:53→21:18)
[2017-10-15] MEDS: SODIUM CHLORIDE 0.9% FLUSH 10 ML FLUSH IV FLUSH SCH ×3 (07:55→21:13)
[2017-10-15] MEDS: ASPIRIN 81 MG CHEW TAB PO SCH (09:09)
[2017-10-15] MEDS: METOPROLOL TARTRATE 25 MG TAB PO SCH ×2 (09:09→22:25)
[2017-10-15] MEDS: CLOPIDOGREL 75 MG TAB PO SCH (09:09)
[2017-10-15] MEDS: FERROUS SULFATE 325 MG (65 MG ELEMENTAL IRON) TAB PO SCH ×3 (09:09→17:51)
[2017-10-15] MEDS: PANTOPRAZOLE SOD 20 MG DELAYED RELEASE TAB PO SCH (09:09)
[2017-10-15] MEDS: LISINOPRIL 5 MG TAB PO SCH (09:10)
[2017-10-15] MEDS: HEPARIN SODIUM - SQ 10,000 UNITS/ML VIAL SQ SCH ×2 (09:10→22:25)
--- NOTE | 2017-10-15 17:10 | HHI.PR ---
Subjective Remarks Denies cp/mild sob afebrile wears oxygen intermittently at home Objective Vitals Vital Signs Date Time Temp Pulse Resp B/P (MAP) Pulse Ox O2 Delivery O2 Flow Rate FiO2 10/15/17 16:00 98.2 83 20 123/83 (96) 96 10/15/17 12:00 97.3 78 20 144/65 (91) 96 10/15/17 09:19 98 10/15/17 08:00 98.1 101 20 126/60 (82) 99 10/15/17 05:01 99 Nasal Cannula 2.50 10/15/17 04:00 97.4 80 16 152/70 (97) 99 10/15/17 03:00 96 10/15/17 00:00 83 10/14/17 20:00 97.6 98 16 155/77 (103) 99 I/O 10/14/17 10/14/17 10/14/17 10/15/17 10/15/17 10/15/17 07:00 15:00 23:00 07:00 15:00 23:00 Intake Total 0 ml Output Total 600 ml Balance -600 ml Intake Oral 0 ml Output Urine Total 600 ml Result Diagram: 10/15/17 0400 10/15/17 0340 Imaging Last Impressions Chest X-Ray 10/14/17 1517 Signed Impressions: Service Date/Time: Saturday, October 14, 2017 15:25 - CONCLUSION: No acute disease. Kade Carlton MD FACR Objective Remarks AAox3 mild difuse exp wheezing on BL lungs [id number] abdomen soft, nt Medications and IVs Current Medications Medications (Trade) Dose Ordered Sig/Tata Route Start Time Stop Time Status Last Admin (NS Flush) 2 ml UNSCH PRN IV FLUSH 10/14/17 18:30 (NS Flush) 2 ml BID IV FLUSH 10/14/17 21:00 10/15/17 00:00 (Narcan Inj) 0.4 mg UNSCH PRN IV PUSH 10/14/17 18:30 (Morphine Inj) 2 mg Q3H PRN IV PUSH 10/14/17 21:00 10/15/17 00:02 Sodium Chloride 1,000 ml @ 70 mls/hr [id number] IV 10/14/17 21:15 10/15/17 00:01 (Xanax) 0.125 mg Q4H PRN PO 10/14/17 21:15 (Aspirin Chew) 81 mg DAILY PO 10/15/17 09:00 10/15/17 09:09 (Questran 4 Gm Pkt) 4 gm Q6HR PO 10/15/17 00:00 (Plavix) 75 mg DAILY PO 10/15/17 09:00 10/15/17 09:09 (Ferrous Sulfate) 325 mg TIDPC PO 10/15/17 09:30 10/15/17 09:09 (Lasix) 20 mg DAILY PRN PO 10/14/17 21:15 (Ismo) 25 mg Q12H PO 10/15/17 07:00 10/15/17 06:53 (Lopressor) 25 mg BID PO 10/15/17 09:00 10/15/17 09:09 (Prinivil) 2.5 mg DAILY PO 10/15/17 09:00 10/15/17 09:10 (Protonix) 20 mg DAILY PO 10/15/17 09:00 10/15/17 09:09 (Heparin Inj) 5,000 units Q12HR SQ 10/15/17 09:00 10/15/17 09:10 A/P Problem List: (1) Chest pain ICD Code: R07.9 - Chest pain Status: Acute (2) CAD (coronary artery disease) ICD Code: I25.10 - CAD (coronary artery disease) Status: Acute (3) HTN (hypertension) ICD Code: I10 - Essential (primary) hypertension Status: Chronic (4) Ischemic cardiomyopathy ICD Code: I25.5 - Ischemic cardiomyopathy Status: Acute Assessment and Plan troponins negative x3 EKG changes observed on EKG Consult the patient's portable machine cutter start nebulizers Discharge Planning pending cardiology recommendations Clif Molina MD Oct 15, 2017 17:10
--- NOTE | 2017-10-15 17:26 | ECHRPT ---
Indication: HEART FAILURE, R/O PE CONCLUSIONS Mildly dilated left ventricle. Mild concentric left ventricular hypertrophy. The left ventricular systolic function is moderately reduced with an estimated ejection fraction in the range of 40-45%. There is diffuse global hypokinesis with distinct regional wall motion abnormalities. Anterior, anteroseptal, and apical hypokinesis. The left atrial size is mildly dilated. The right atrial size is moderately dilated. No atrial level shunt is demonstrated by color flow Doppler interrogation. The aortic root and proximal ascending aorta are not well visualized. Mild mitral valve regurgitation. Aortic valve sclerosis is present. There is mild to moderate tricuspid valve regurgitation. The estimated pulmonary arterial pressure is 44.3 mmHg. BP: 152 / 70 HR: 80 Rhythm: Sinus MEASUREMENTS (Male / Female) Normal Values Technical Quality:Fair 2D ECHO LV Diastolic Diameter PLAX 5.4 cm 4.2 - 5.9 / 3.9 - 5.3 cm LV Systolic Diameter PLAX 4.1 cm IVS Diastolic Thickness 0.9 cm 0.6 - 1.0 / 0.6 - 0.9 cm LVPW Diastolic Thickness 0.9 cm 0.6 - 1.0 / 0.6 - 0.9 cm LV Relative Wall Thickness 0.3 RV Internal Dim ED PLAX 2.1 cm LVOT Diameter 2.1 cm Aortic Root Diameter 3.1 cm LA Systolic Diameter LX 3.0 cm 3.0 - 4.0 / 2.7 - 3.8 cm M-MODE AV Cusp Separation MM 1.8 cm DOPPLER AV Peak Velocity 138.0 cm/s AV Peak Gradient 7.6 mmHg AV Mean Gradient 4.0 mmHg AV Velocity Time Integral 25.5 cm LVOT Peak Velocity 54.9 cm/s LVOT Peak Gradient 1.2 mmHg LVOT Velocity Time Integral 10.1 cm AV Area Cont Eq vti 1.4 cm AV Area Cont Eq pk 1.4 cm Mitral E Point Velocity 98.2 cm/s Mitral A Point Velocity 91.8 cm/s Mitral E to A Ratio 1.1 TR Peak Velocity 293.0 cm/s TR Peak Gradient 34.3 mmHg Right Atrial Pressure 10.0 mmHg Pulmonary Artery Systolic Pressu 44.3 mmHg Right Ventricular Systolic Press 44.3 mmHg PV Peak Velocity 63.9 cm/s PV Peak Gradient 1.6 mmHg FINDINGS LEFT VENTRICLE Mildly dilated left ventricle. Mild concentric left ventricular hypertrophy. The left ventricular systolic function is moderately reduced with an estimated ejection fraction in the range of 40-45%. There is diffuse global hypokinesis with distinct regional wall motion abnormalities. Anterior, anteroseptal, and apical hypokinesis. RIGHT VENTRICLE Normal right ventricular size and systolic function. LEFT ATRIUM The left atrial size is mildly dilated. RIGHT ATRIUM The right atrial size is moderately dilated. ATRIAL SEPTUM No atrial level shunt is demonstrated by color flow Doppler interrogation. AORTA The aortic root and proximal ascending aorta are not well visualized. MITRAL VALVE Mild mitral valve regurgitation. AORTIC VALVE Aortic valve sclerosis is present. TRICUSPID VALVE There is mild to moderate tricuspid valve regurgitation. The estimated pulmonary arterial pressure is 44.3 mmHg. PULMONARY VALVE No pulmonary valve regurgitation or stenosis. VESSELS The inferior vena cava is normal in size. PERICARDIUM No pericardial effusion. Randy La MD, FACC (Electronically Signed) Final Date:15 October 2017 17:25
[2017-10-15] MEDS ORDERED: PILL SPLITTER OTHER PRN (19:15)
--- NOTE | 2017-10-15 19:58 | EKG ---
Date Performed: 10/15/2017 Time Performed: 03:45:10 PTAGE: 77 years EKG: Sinus rhythm POSSIBLE ANTERIOR MYOCARDIAL INFARCTION MODERATE T-WAVE ABNORMALITY, CONSIDER INFERIOR ISCHEMIA Sinc e the previous tracing, no significant change noted ABNORMAL ECG PREVIOUS TRACING : 10/14/17 @ 2333 DOCTOR: Cecilio South Interpretating Date/Time 10/15/2017 19:58:03
--- NOTE | 2017-10-15 19:58 | EKG ---
Date Performed: 10/14/2017 Time Performed: 23:33:06 PTAGE: 77 years EKG: Sinus rhythm POSSIBLE ANTERIOR MYOCARDIAL INFARCTION Compared to previous tracing, sinus rate is slower. Nonspeci fic ST changes are more prominent ABNORMAL ECG PREVIOUS TRACING : 10/11/2017 08.16 DOCTOR: Cecilio South Interpretating Date/Time 10/15/2017 19:57:37
--- NOTE | 2017-10-15 19:58 | EKG ---
Date Performed: 10/14/2017 Time Performed: 15:21:44 PTAGE: 77 years EKG: SINUS TACHYCARDIA POSSIBLE ANTERIOR MYOCARDIAL INFARCTION Compared to previous tracing, sin us rate is faster ABNORMAL ECG PREVIOUS TRACING : 09/18/17 @ 0408 DOCTOR: Cecilio South Interpretating Date/Time 10/15/2017 19:57:09
[2017-10-15] MEDS: RESP: ALBUTEROL 2.5 MG/IPRATROPIUM 0.5 MG NEB (SCH) NEB (20:00)
--- NOTE | 2017-10-15 21:58 | RADRPT ---
EXAM DATE/TIME: 10/15/2017 21:43 [place] COMPARISON: CT PULMONARY ANGIOGRAM, August 06, 2015, 19:49. INDICATIONS : Chest pain. IV CONTRAST: 65 cc Omnipaque 350 (iohexol) IV RADIATION DOSE: 6.36 CTDIvol (mGy) MEDICAL HISTORY : Cardiovascular disease. Hypertension. Carcinoma, colon.ND. SURGICAL HISTORY : Hysterectomy. CABGCoronary artery stent.Spine stimulator. ENCOUNTER: Initial ACUITY: 1 day PAIN SCALE: 6/10 LOCATION: chest TECHNIQUE: Volumetric scanning of the chest was performed using a pulmonary embolism protocol MIP images were re constructed. Using automated exposure control and adjustment of the mA and/or kV according to patien t size, radiation dose was kept as low as reasonably achievable to obtain optimal diagnostic quality images. DICOM format image data is available electronically for review and comparison. Follow-up recommendations for detected pulmonary nodules are based at a minimum on nodule size and pa tient risk factors according to Fleischner Society Guidelines. FINDINGS: PULMONARY ARTERIES: No filling defects are seen in the pulmonary arteries through the segmental level. LUNGS: There is no consolidation or pneumothorax . No concerning pulmonary nodule is visualized. Underlying emphysema and scarring are again noted. PLEURAE: There is no pleural thickening or pleural effusion. MEDIASTINUM: Status post median sternotomy with postsurgical change. There is good visualization of the great vess els of the middle mediastinum. No evidence of mediastinal or hilar adenopathy/mass. MUSCULOSKELETAL: Within normal limits for patient age. MISCELLANEOUS: The visualized upper abdominal organs demonstrate no acute abnormality. CONCLUSION: 1. No evidence of pulmonary emboli. 2. Status post median sternotomy with postsurgical change. Rene Wadr MD on October 15, 2017 at 21:52 Board Certified Radiologist. This report was verified electronically.
[2017-10-15] MEDS ORDERED: NITROGLYCERIN 0.4 MG SL 25 TABS/BTL SL PRN (23:00)
[2017-10-16] VITALS: PULSE 72
[2017-10-16] MEDS: SODIUM CHLOR 0.9% 1000 ML INJ 1,000 ML IV SCH ×2 (01:45→16:09)
[2017-10-16] MEDS: MORPHINE SULFATE 2 MG/ML SYRINGE IV PUSH PRN (03:48)
[2017-10-16 04:36] VITALS: BP 136/63; PULSE 88; RESP 18; TEMP 98.1; O2SAT 100
[2017-10-16] MEDS: CHOLESTYRAMINE 4 GM PACKET PO SCH ×2 (06:00→12:00)
[2017-10-16] MEDS: ISOSORBIDE MONONITRATE 20 MG TAB PO SCH (06:41)
[2017-10-16] MEDS: RESP: ALBUTEROL 2.5 MG/IPRATROPIUM 0.5 MG NEB (SCH) NEB ×2 (08:04→15:30)
[2017-10-16 08:52] VITALS: BP 123/59; PULSE 76; RESP 18; TEMP 98; O2SAT 100
[2017-10-16] MEDS: SODIUM CHLORIDE 0.9% FLUSH 10 ML FLUSH IV FLUSH SCH (09:00)
[2017-10-16] MEDS: ASPIRIN 81 MG CHEW TAB PO SCH (09:36)
[2017-10-16] MEDS: FERROUS SULFATE 325 MG (65 MG ELEMENTAL IRON) TAB PO SCH ×2 (09:37→13:30)
[2017-10-16] MEDS: CLOPIDOGREL 75 MG TAB PO SCH (09:37)
[2017-10-16] MEDS: PANTOPRAZOLE SOD 20 MG DELAYED RELEASE TAB PO SCH (09:37)
[2017-10-16] MEDS: METOPROLOL TARTRATE 25 MG TAB PO SCH (09:37)
[2017-10-16] MEDS: LISINOPRIL 5 MG TAB PO SCH (09:37)
[2017-10-16] MEDS: HEPARIN SODIUM - SQ 10,000 UNITS/ML VIAL SQ SCH (09:39)
[2017-10-16 10:04] LABS: HEMATOCRIT 23.8 % (35.0-46.0); HEMOGLOBIN 7.9 GM/DL (11.6-15.3); MEAN CELL VOLUME 85.4 FL (80.0-100.0); MEAN CORPUSCULAR HEMOGLOBIN 28.2 PG (27.0-34.0); MEAN CORPUSCULAR HGB CONC 33.1 % (32.0-36.0); MEAN PLATELET VOLUME 8.3 FL (7.0-11.0); PLATELET COUNT 182 TH/MM3 (150-450); RED BLOOD COUNT 2.78 MIL/MM3 (4.00-5.30); RED CELL DISTRIBUTION WIDTH 17.8 % (11.6-17.2); WHITE BLOOD COUNT 3.6 TH/MM3 (4.0-11.0)
[2017-10-16 10:07] LABS: BICARBONATE 26.3 MEQ/L (21.0-32.0); CALCIUM 8.4 MG/DL (8.5-10.1); CREATININE 0.64 MG/DL (0.50-1.00); MAGNESIUM 2.1 MG/DL (1.5-2.5); PHOSPHORUS 4.3 MG/DL (2.5-4.9)
[2017-10-16 11:20] VITALS: BP 136/63; PULSE 76; RESP 20; TEMP 98.2; O2SAT 100
[2017-10-16 15:04] VITALS: BP 168/77; PULSE 84; RESP 18; TEMP 98; O2SAT 94
--- NOTE | 2017-10-16 15:06 | HHI.DCPOC ---
Discharge Care Plan Diagnosis: (1) S/P CABG x 2 (2) Hx of colostomy (3) Ischemic cardiomyopathy (4) HTN (hypertension) (5) Chest pain (6) CAD (coronary artery disease) Goals to Promote Your Health * To prevent worsening of your condition and complications * To maintain your health at the optimal level Directions to Meet Your Goals Take your medications as prescribed Follow your dietary instruction Follow activity as directed Keep your appointments as scheduled Take your immunizations and boosters as scheduled If your symptoms worsen call your PCP, if no PCP go to Urgent Care Center or Emergency Room Smoking is Dangerous to Your Health. Avoid second hand smoke Call the 24-hour hour crisis hotline for domestic abuse at Clif Molina MD Oct 16, 2017 15:06
--- NOTE | 2017-10-16 15:10 | HHI.FF ---
Face to Face Verification Diagnosis: (1) S/P CABG x 2 (2) HTN (hypertension) (3) Chest pain (4) CAD (coronary artery disease) (5) Ischemic cardiomyopathy Physical Therapy Order: Improve ambulation, Strength and gait training Home Health Nursing Order: Oxygen administration education Wound care and dressing changes Nursing assessment with vital signs I have seen patient Radha Ramos on 10/16/17. My clinical findings support the need for the requested home health care services because: Deconditioned w/ increased weakness Limited ability to care for self Need for psychosocial assistance I certify that my clinical findings support that this patient is homebound because: Post-op weakness Unsafe to leave home unassisted Unable to use public transportation Poor cardiac reserve Clif Molina MD Oct 16, 2017 15:10
--- NOTE | 2017-10-16 15:12 | HHI.DS ---
Discharge Summary Admission Date Oct 14, 2017 at 18:32 Discharge Date: Oct 16, 2017 Admitting Diagnosis Chest pain (1) Chest pain ICD Code: R07.9 - Chest pain Diagnosis: Principal Status: Resolved (2) CAD (coronary artery disease) ICD Code: I25.10 - CAD (coronary artery disease) Diagnosis: Principal Status: Chronic (3) HTN (hypertension) ICD Code: I10 - Essential (primary) hypertension Diagnosis: Secondary Status: Chronic (4) Ischemic cardiomyopathy ICD Code: I25.5 - Ischemic cardiomyopathy Diagnosis: Secondary Status: Chronic Procedures none Brief History - From Admission 77-year-old female with a past medical history significant for CAD status post multiple MIs, hypertension, hyperlipidemia and short gut syndrome who is status post redo CABG 2 on 09/17/17 sensitive the emergency department for evaluation of chest pain and shortness of breath. The patient was released from rehabilitation on Thursday. She reports that on Thursday she felt lightheaded however denies any syncopal episodes. She went to see her primary care physician yesterday who wanted her to go to the ER because "her heart was working too hard." The patient was also noted to be hypotensive in her PCPs office although she cannot remember what her blood pressure was. The patient refused to come to the emergency department yesterday and today had chest pain that radiated to her back and left arm with accompanying abdominal pain. The patient's home health care nurse called EMS. The patient reports that her chest pain/pressure remains present although it is somewhat improved with oxygen. She states she does wear 2 L home O2 on a when necessary basis. The patient denies any nausea/vomiting. Has persistent, chronic diarrhea. No lateralizing signs/symptoms. CBC/BMP: 10/16/17 0915 10/16/17 0915 Significant Findings Laboratory Tests Test 10/14/17 15:50 10/14/17 17:35 10/14/17 22:30 10/15/17 03:40 Red Blood Count 2.89 MIL/MM3 (4.00-5.30) Hemoglobin 8.4 GM/DL (11.6-15.3) Hematocrit 24.5 % (35.0-46.0) Red Cell Distribution Width 17.7 % (11.6-17.2) Monocytes (%) (Auto) 12.7 % (0.0-8.0) Total Protein 6.0 GM/DL (6.4-8.2) Albumin 2.9 GM/DL (3.4-5.0) Calcium Level 7.6 MG/DL (8.5-10.1) 8.4 MG/DL (8.5-10.1) Alkaline Phosphatase 182 U/L (45-117) Chloride Level 109 MEQ/L (98-107) 108 MEQ/L (98-107) Troponin I LESS THAN 0.02 NG/ML LESS THAN 0.02 NG/ML LESS THAN 0.02 NG/ML Estimat Glomerular Filtration Rate 85 ML/MIN (>89) Test 10/15/17 04:00 10/16/17 09:15 White Blood Count 3.4 TH/MM3 (4.0-11.0) 3.6 TH/MM3 (4.0-11.0) Red Blood Count 2.86 MIL/MM3 (4.00-5.30) 2.78 MIL/MM3 (4.00-5.30) Hemoglobin 8.2 GM/DL (11.6-15.3) 7.9 GM/DL (11.6-15.3) Hematocrit 24.5 % (35.0-46.0) 23.8 % (35.0-46.0) Red Cell Distribution Width 18.0 % (11.6-17.2) 17.8 % (11.6-17.2) Lymphocytes (%) (Auto) 44.5 % (9.0-44.0) Monocytes (%) (Auto) 12.7 % (0.0-8.0) Eosinophils (%) (Auto) 4.6 % (0.0-4.0) Neutrophils # (Auto) 1.3 TH/MM3 (1.8-7.7) Calcium Level 8.4 MG/DL (8.5-10.1) Imaging Last Impressions CT Angiography 10/15/17 0000 Signed Impressions: Service Date/Time: October 21:43 - CONCLUSION: 1. No evidence of pulmonary emboli. 2. Status post median sternotomy with postsurgical change. Rene Ward MD Chest X-Ray 10/14/17 1517 Signed Impressions: Service Date/Time: Saturday, October 14, 2017 15:25 - CONCLUSION: No acute disease. Kade Carlton MD FACR PE at Discharge AAox3 mild difuse exp wheezing on BL lungs [id number] abdomen soft, nt Pt update on day of discharge Chest pain is much improved. Denies sob. Pt Condition on Discharge: Stable Discharge Disposition: Disch w/ Home Health Serv Discharge Time: > 30 minutes Discharge Instructions DIET: Follow Instructions for: Heart Healthy Diet Activities you can perform: See Additionl Instruction Activities to Avoid: Lifting/Bending, Strenuous Activity Other Activity Instructions: as instructed when discharged after CABG. Follow up Referrals: Cardiology - 1 Week PCP Follow-up - 1 Week Continued Medications: Alprazolam (Xanax) 0.25 Mg Tab 0.125 MG PO Q4H PRN for anxiety, #14 TAB Aspirin (Tgt Aspirin) 81 Mg Chw 81 MG PO DAILY for Heart, #30 EA Cholestyramine (Cholestyramine) 4 Gm/Dose Powd 4 GM PO Q6HR for Diarrhea, #1 CAN 0 Refills 1 level scoopful of powder contains 4 grams of cholestyramine. Clopidogrel (Plavix) 75 Mg Tab 75 MG PO DAILY for Heart, #30 TAB Docusate Sodium (Dok) 100 Mg Cap 100 MG PO BID for Constipation, #60 CAP Ferrous Sulfate (Ferrous Sulfate) 325 Mg (65 Mg Iron) Tablet 325 MG PO TIDPC for Nutritional Supplement, #90 TAB 0 Refills Furosemide (Furosemide) 20 Mg Tab 20 MG PO DAILY PRN for SWELLING, #30 TAB 0 Refills Hydrocodone-Acetaminophen (Hydrocodone-Acetaminophen) 5-325 mg Tab 1 TAB PO Q4H PRN for PAIN, TAB 0 Refills Isosorbide Mononitrate (Isosorbide Mononitrate) 10 Mg Tab 25 MG PO BID for Prevent Chest Pain, #60 TAB Take 2 doses 7 hours apart. L. Acidophilus/Pectin, Ceiba (Acidophilus Probiotic Capsule) 100 Million Cell- 10 Mg Capsule Lisinopril (Lisinopril) 2.5 Mg Tab 2.5 MG PO DAILY, #30 TAB 0 Refills Metoprolol Tartrate (Metoprolol Tartrate) 25 Mg Tab 25 MG PO BID for Heart, #60 TAB Metronidazole (Metronidazole) 250 Mg Tab 250 MG PO TID for Infection for 7 Days, TAB 0 Refills Multiple Vitamin (Multiple Vitamin) 1 Tab 1 TAB PO DAILY for Nutritional Supplement, TAB 0 Refills Omeprazole (Omeprazole) 20 Mg Tab 20 MG PO DAILY, #30 TAB 0 Refills Ondansetron (Zofran) 4 Mg Tab 4 MG PO Q6HR PRN for NAUSEA OR VOMITING, TAB 0 Refills Clif Molina MD Oct 16, 2017 15:12
[2017-10-16 15:31] VITALS: O2SAT 95
--- NOTE | 2017-10-17 11:07 | EKG ---
Date Performed: 10/15/2017 Time Performed: 22:32:04 PTAGE: 77 years EKG: Sinus rhythm Poor R-wave progression Nonspecific T-wave abnormality, which is new in the anterior leads, but impr dc in the inferior leads compared to the prior tracing. Clinical correlation needed. ABNORMAL ECG PREVIOUS TRACING : 10/15/2017 03.45.10 DOCTOR: Manoj Chery Interpretating Date/Time 10/17/2017 11:05:55
--- NOTE | 2017-10-22 09:07 | MB ---
cc: Manoj Chery MD DATE: 10/15/2017 REASON FOR CONSULTATION: Evaluation of chest pain and need for oxygen. HISTORY OF PRESENT ILLNESS: This is a 77-year-old female with sees my partner, Dr. South. She just underwent open heart bypass surgery with a left internal mammary graft to the LAD and a vein graft to the diagonal. Her preop catheterization showed occlusion of the right coronary artery, but apparently that was not able to be grafted. Circumflex artery had a stenosis that was not hemodynamically significant, so it did not need to be grafted. She complains of chest pain and shortness of breath and apparently is requiring some oxygen. Chest x-ray is clear, so the reason she needs oxygen is not clear to me. Her bypass surgery is extremely recent. The pain is sharp and does not sound like angina. She is highly anxious and much of her chest pain is felt to have been noncardiac in nature, but difficult to assess knowing the fact that she actually has coronary artery disease. She has had statin intolerance, hypertension, hyperlipidemia, anemia, weight loss. She has a history of previous smoking, which she quit in 1985. MEDICATIONS: Her current medications include: 1. Aspirin. 2. Clopidogrel. 3. Metoprolol 25 b.i.d. 4. Lisinopril 2.5 daily. 5. Ismo 20 b.i.d. which is unclear to me why she is on that. PAST MEDICAL HISTORY: Includes hypertension, CAD, hyperlipidemia, GERD, anxiety, previous CHF. PAST SURGICAL HISTORY: Includes colostomy with reversal, previous stents, bypass surgery, back surgery, gastrectomy, appendectomy, hysterectomy .The date of her open heart operation and was 09/17, so she is less than a month out. SOCIAL HISTORY: She is an ex-smoker. PHYSICAL EXAMINATION: GENERAL: A thin white female, in no acute distress. VITAL SIGNS: Charted. HEENT: Unremarkable. NECK: Shows bilateral bruits. CHEST: Clear to auscultation. CARDIAC: S1, S2. Regular rate and rhythm with 1/6 systolic ejection murmur. EXTREMITIES: Unremarkable. EKG shows sinus rhythm with an old inferior SC. Her chest x-ray shows no acute disease. LABORATORY DATA: She is anemic with hematocrit in the 24s. Troponins are negative. Creatinine 0.67. IMPRESSION: I do not see an acute cardiac problem at this time. She has a longstanding history of smoking. PLAN: We will order a chest CTA to rule out a pulmonary embolism. I will follow up on a p.r.n. basis. May wish to consider main line assembler if recommendations are needed for oxygen therapy. This does not appear to be related to her heart condition. Continue her beta hood and CALLIE inhibitor as prescribed. Her vitals have been stable here. Please call if any questions. Manoj Chery MD VEW/rt , 07:03 PM , 08:12 PM
== END 2017-10-16 18:34 | disposition home or self-care (01) ==
LOC: NEPC 14:56 → NEDA 18:32 → NEDH 10-15 → NEPHCDU 10-15 14:31
PROVIDERS: ADMIT Internal Medicine; ATTEND Internal Medicine
DX: R07.9 Chest pain, unspecified (principal); I11.0 Hypertensive heart disease with heart failure; I50.9 Heart failure, unspecified; E78.00 Pure hypercholesterolemia, unspecified; I25.10 Atherosclerotic heart disease of native coronary artery without angina pectoris; I25.2 Old myocardial infarction; E78.5 Hyperlipidemia, unspecified; R42 Dizziness and giddiness; R06.02 Shortness of breath; R19.7 Diarrhea, unspecified; K21.9 Gastro-esophageal reflux disease without esophagitis; F41.9 Anxiety disorder, unspecified; Z98.1 Arthrodesis status; R00.0 Tachycardia, unspecified; R94.31 Abnormal electrocardiogram [ECG] [EKG]; I25.5 Ischemic cardiomyopathy; I95.9 Hypotension, unspecified; M79.7 Fibromyalgia; M19.90 Unspecified osteoarthritis, unspecified site; Z95.1 Presence of aortocoronary bypass graft; Z79.899 Other long term (current) drug therapy; Z95.5 Presence of coronary angioplasty implant and graft; Z85.028 Personal history of other malignant neoplasm of stomach; Z87.891 Personal history of nicotine dependence
CPT/HCPCS: 71045; 71275; 80048; 80053; 82550; 83735; 83880; 84100; 84484; 85025; 85027; 85610; 85730; 93005; 93306; 94640; 94664; 96361; 96372; 96374; 96376; 97163; 99285; G0378; G8987; G8988; J1644; J2270; J7030; Q9967